=== PATIENT | female | born 1965 | race Caucasian/White ===

== ENCOUNTER 2016-10-17 15:12 | Emergency (ER) | payer MEDICAID ==
[~2016-10-17] VITALS: Ht 160 cm; Wt 42.0 kg
[~2016-10-17 15:12] MED LIST: AMA1 PO; BENAZEPRIL; GLIP5TAB12 PO; IBUP-1510 PO; INSASP SQ; LISI-186 PO; METFORMIN; MULT-1146 PO; OMEP40CA34 PO; ONDA4TAB51; PANT20TA3; POTA10CA42 PO; PROM25TA13; QUET150T PO; SIME125C PO; TRAM50TA3
[2016-10-17] MEDS ORDERED: KETOROLAC 60MG/2ML VIAL IM ONE (18:30)
[2016-10-17 19:17] LABS: CLARITY URINE CLEAR (CLEAR); COLOR URINE YELLOW (YELLOW); GLUCOSE URINE 3+ (NEGATIVE); KETONES URINE TRACE (NEGATIVE); LEUKOCYTE ESTERASE URINE NEGATIVE (NEGATIVE); NITRITE URINE NEGATIVE (NEGATIVE); OCCULT BLOOD URINE NEGATIVE (NEGATIVE); PROTEIN URINE NEGATIVE (NEGATIVE); SPECIFIC GRAVITY URINE 1.031 (1.005-1.030); UROBILINOGEN URINE 0.2 E.U./dL (0.2-1.0)
[2016-10-17 20:25] VITALS: BP 167/86
== END 2016-10-17 20:25 | disposition home or self-care (01) ==
LOC: ER 19:39
DX: M54.5 Low back pain (principal); E11.9 Type 2 diabetes mellitus without complications; I10 Essential (primary) hypertension; J45.909 Unspecified asthma, uncomplicated; Z79.84 Long term (current) use of oral hypoglycemic drugs; Z79.899 Other long term (current) drug therapy; Z79.4 Long term (current) use of insulin; Z87.19 Personal history of other diseases of the digestive system
CPT/HCPCS: 81001; 96372; 99283; J1885; Z7610

== ENCOUNTER 2016-12-05 21:58 | Emergency (ER) | payer MEDICAID ==
[~2016-12-05] VITALS: Ht 167.6 cm; Wt 45.0 kg
[~2016-12-05 21:58] MED LIST changes: -IBUP-1510 PO; +IBUP-2030 PO
[2016-12-06] MEDS ORDERED: KETOROLAC 15MG/ML VIAL IV ONE (01:00)
[2016-12-06] MEDS ORDERED: SODIUM CHLORIDE 0.9% 1,000 ML IV ONE (01:00)
[2016-12-06 01:25] LABS: BASOPHILS % 1.2 % (0.0-2.0); EOSINOPHILS % 1.4 % (0.0-5.0); HEMATOCRIT. 34.4 % (36.0-48.0); HEMOGLOBIN. 11.8 g/dL (12.0-16.0); LYMPHOCYTES % 54.7 % (20.0-50.0); MEAN CORPUSCULAR HEMOGLOBIN 29.8 pg (28.0-32.0); MEAN PLATELET VOLUME 8.9 fl (7.4-10.4); MONOCYTES % 8.7 % (2.0-8.0); PLATELET 104 x1000/uL (130-400); RED BLOOD CELL COUNT 3.96 mill/uL (4.2-5.4); RED CELL DISTRIBUTION WIDTH 14.4 % (11.6-14.6)
[2016-12-06 01:26] LABS: CLARITY URINE CLEAR (CLEAR); COLOR URINE YELLOW (YELLOW); GLUCOSE URINE 3+ (NEGATIVE); KETONES URINE NEGATIVE (NEGATIVE); LEUKOCYTE ESTERASE URINE NEGATIVE (NEGATIVE); NITRITE URINE NEGATIVE (NEGATIVE); OCCULT BLOOD URINE NEGATIVE (NEGATIVE); PROTEIN URINE 1+ (NEGATIVE); SPECIFIC GRAVITY URINE 1.035 (1.005-1.030); UROBILINOGEN URINE 0.2 E.U./dL (0.2-1.0)
[2016-12-06 01:32] LABS: CHLORIDE 96 mEq/L (98-107)
[2016-12-06 01:38] LABS: CARBON DIOXIDE 30 mEq/L (21-32)
[2016-12-06] MEDS ORDERED: SODIUM CHLORIDE 0.9% 250 ML IV NR (02:15)
[2016-12-06] MEDS ORDERED: MORPHINE SULFATE 4 MG/ML CPJ (NOT FOR IM USE) IV NR (02:15)
[2016-12-06] MEDS ORDERED: INSULIN REGULAR (HUMULIN R) 300UNITS/3ML IV NR (02:15)
[2016-12-06] MEDS ORDERED: CLONIDINE 0.2MG TABLET PO ONE (04:00)
[2016-12-06] MEDS ORDERED: INSULIN REGULAR (HUMULIN R) 300UNITS/3ML SUBCUT ONE (04:00)
[2016-12-06 09:20] VITALS: BP 92/66
== END 2016-12-06 09:28 | disposition home or self-care (01) ==
LOC: ER 21:58
DX: E11.65 Type 2 diabetes mellitus with hyperglycemia (principal); R00.0 Tachycardia, unspecified; M25.562 Pain in left knee; M25.551 Pain in right hip; M54.5 Low back pain; I10 Essential (primary) hypertension; M62.50 Muscle wasting and atrophy, not elsewhere classified, unspecified site; R64 Cachexia; Z68.1 Body mass index [BMI] 19.9 or less, adult; J45.909 Unspecified asthma, uncomplicated; Z79.4 Long term (current) use of insulin; Z87.19 Personal history of other diseases of the digestive system; Z79.899 Other long term (current) drug therapy
CPT/HCPCS: 36415; 72170; 80048; 81001; 82962; 85025; 96361; 96372; 96374; 96375; 99291; J1815; J1885; J2270; J7030; J7050; Z7610

== ENCOUNTER 2017-08-17 19:34 | Emergency (ER) | payer MEDICAID ==
[~2017-08-17] VITALS: Ht 157.5 cm; Wt 41.0 kg
[2017-08-17] MEDS ORDERED: ONDANSETRON HCL 4MG/2ML VIAL IV STA (19:49)
[2017-08-17] MEDS ORDERED: SODIUM CHLORIDE 0.9% 1,000 ML IV ONE (19:49)
[2017-08-17] MEDS ORDERED: MORPHINE SULFATE 4 MG/ML CPJ (NOT FOR IM USE) IV STA (19:49)
[2017-08-17 20:22] LABS: BASOPHILS % 0.9 % (0.0-2.0); HEMATOCRIT. 37.9 % (36.0-48.0); HEMOGLOBIN. 12.5 g/dL (12.0-16.0); MEAN CORPUSCULAR HEMOGLOBIN 28.5 pg (28.0-32.0); MEAN CORPUSCULAR VOLUME 86.4 fL (81.0-99.0); MEAN PLATELET VOLUME 8.5 fl (7.4-10.4); MONOCYTES % 9.1 % (2.0-8.0); PLATELET 125 x1000/uL (130-400); RED BLOOD CELL COUNT 4.39 mill/uL (4.2-5.4); RED CELL DISTRIBUTION WIDTH 14.6 % (11.6-14.6)
[2017-08-17 20:27] LABS: CHLORIDE 103 mEq/L (98-107)
[2017-08-17 20:29] LABS: INR 1.1
[2017-08-18] MEDS ORDERED: POTASSIUM CHLORIDE 20MEQ TABLET SR PO ONE (00:30)
[2017-08-18] MEDS ORDERED: MORPHINE SULFATE 4 MG/ML CPJ (NOT FOR IM USE) IV ONE (00:45)
[2017-08-18 02:08] VITALS: BP 159/96
== END 2017-08-18 06:49 | disposition home or self-care (01) ==
LOC: ER 19:34 → CANBEDREQ 08-18 06:53
DX: R10.11 Right upper quadrant pain (principal); R10.12 Left upper quadrant pain; R11.2 Nausea with vomiting, unspecified; R51 Headache; I10 Essential (primary) hypertension; E11.9 Type 2 diabetes mellitus without complications; C22.8 Malignant neoplasm of liver, primary, unspecified as to type; Z79.4 Long term (current) use of insulin
CPT/HCPCS: 36415; 70450; 71045; 74176; 80053; 83690; 85025; 85610; 96361; 96374; 96375; 96376; 99285; J2270; J2405; J7030

== ENCOUNTER 2018-02-04 02:25 | Emergency (ER) | payer MEDICAID ==
[~2018-02-04] VITALS: Ht 165.1 cm; Wt 51.0 kg
[~2018-02-04 02:25] MED LIST changes: -AMA1 PO; -BENAZEPRIL; +GABA-531 PO; -IBUP-2030 PO; -INSASP SQ; +INSLIS SUBCUT; +LURA120T PO; -METFORMIN; -MULT-1146 PO; -SIME125C PO; -TRAM50TA3
[2018-02-04] MEDS ORDERED: SODIUM CHLORIDE 0.9% 1000ML BAG (SEPSIS BOLUS) IV ONE (03:45)
[2018-02-04 04:24] LABS: BASOPHILS % 0.9 % (0.0-2.0); EOSINOPHILS % 1.3 % (0.0-5.0); HEMATOCRIT. 31.3 % (36.0-48.0); HEMOGLOBIN. 10.5 g/dL (12.0-16.0); LYMPHOCYTES % 50.1 % (20.0-50.0); MEAN PLATELET VOLUME 8.8 fl (7.4-10.4); MONOCYTES % 6.4 % (2.0-8.0); NEUTROPHILS % 41.3 % (40.0-76.0); PLATELET 93 x1000/uL (130-400); RED BLOOD CELL COUNT 3.77 mill/uL (4.2-5.4); RED CELL DISTRIBUTION WIDTH 13.8 % (11.6-14.6)
[2018-02-04 04:29] LABS: CHLORIDE 104 mEq/L (98-107)
[2018-02-04 04:40] LABS: BETA HYDROXYBUTYRATE 0.1 mMol/L (0.0-0.3)
[2018-02-04 05:00] LABS: INR 1.1; PROTHROMBIN TIME 10.8 sec (9.1-11.1)
[2018-02-04] MEDS ORDERED: KETOROLAC 30MG/ML VIAL IV ONE (06:00)
[2018-02-04 06:17] VITALS: BP 138/73
== END 2018-02-04 06:22 | disposition home or self-care (01) ==
LOC: ER 02:25 → CANBEDREQ 06:37
DX: R53.1 Weakness (principal); R19.7 Diarrhea, unspecified; E11.9 Type 2 diabetes mellitus without complications; I10 Essential (primary) hypertension; F10.20 Alcohol dependence, uncomplicated; Z79.4 Long term (current) use of insulin; Z79.899 Other long term (current) drug therapy; Y90.9 Presence of alcohol in blood, level not specified
CPT/HCPCS: 36415; 71045; 80053; 82010; 82962; 83605; 84145; 84484; 85025; 85610; 87040; 87804; 93005; 96361; 96374; 99284; J1885; J7030

== ENCOUNTER 2018-06-05 01:43 | Emergency (ER) | payer MEDICAID ==
[~2018-06-05] VITALS: Ht 157.5 cm; Wt 54.0 kg
[2018-06-05] MEDS ORDERED: ONDANSETRON HCL 4MG/2ML INJ IV STA (08:06)
[2018-06-05] MEDS ORDERED: SODIUM CHLORIDE 0.9% 1,000 ML IV ONE (08:06)
[2018-06-05] MEDS ORDERED: MORPHINE SULFATE 4 MG/ML CPJ (NOT FOR IM USE) IV STA (08:06)
[2018-06-05 08:24] LABS: EOSINOPHILS % 1.8 % (0.0-5.0); HEMATOCRIT. 29.6 % (36.0-48.0); LYMPHOCYTES % 47.5 % (20.0-50.0); MEAN CORPUSCULAR HEMOGLOBIN 27.8 pg (28.0-32.0); MEAN CORPUSCULAR VOLUME 82.7 fL (81.0-99.0); MEAN PLATELET VOLUME 7.7 fl (7.4-10.4); MONOCYTES % 9.7 % (2.0-8.0); PLATELET 115 x1000/uL (130-400); RED BLOOD CELL COUNT 3.58 mill/uL (4.2-5.4); RED CELL DISTRIBUTION WIDTH 17.3 % (11.6-14.6)
[2018-06-05 08:30] LABS: CHLORIDE 102 mEq/L (98-107)
[2018-06-05 08:36] LABS: ETHANOL BLOOD < 10 mg/dL
[2018-06-05 08:43] LABS: BETA HYDROXYBUTYRATE 0.2 mMol/L (0.0-0.3)
[2018-06-05] MEDS ORDERED: INSULIN REGULAR (HUMULIN R) 300UNITS/3ML SUBCUT ONE (11:15)
[2018-06-05 11:26] LABS: CLARITY URINE CLEAR (CLEAR); COLOR URINE YELLOW (YELLOW); KETONES URINE NEGATIVE (NEGATIVE); LEUKOCYTE ESTERASE URINE NEGATIVE (NEGATIVE); NITRITE URINE NEGATIVE (NEGATIVE); OCCULT BLOOD URINE NEGATIVE (NEGATIVE); PROTEIN URINE NEGATIVE (NEGATIVE); SPECIFIC GRAVITY URINE 1.028 (1.005-1.030); UROBILINOGEN URINE 0.2 E.U./dL (0.2-1.0)
[2018-06-05 11:48] LABS: *AMPHETAMINES SCREEN URINE NEGATIVE (NEGATIVE); *BARBITURATES SCREEN URINE NEGATIVE (NEGATIVE); *BENZODIAZEPINES SCREEN URINE NEGATIVE (NEGATIVE); *COCAINE SCREEN URINE NEGATIVE (NEGATIVE)
[2018-06-05 11:49] LABS: CANNABINOID URINE SCREEN NEGATIVE (NEGATIVE); METHADONE URINE SCREEN NEGATIVE (NEGATIVE); OPIATES URINE SCREEN PRESUMTIVE POSITIVE (NEGATIVE)
[2018-06-05 11:50] LABS: PHENCYCLIDINE URINE SCREEN NEGATIVE (NEGATIVE)
[2018-06-05] MEDS ORDERED: KETOROLAC 30MG/ML VIAL IV ONE (12:45)
[2018-06-05 14:10] VITALS: BP 128/70
== END 2018-06-05 14:30 | disposition home or self-care (01) ==
LOC: ER 01:43
DX: K52.9 Noninfective gastroenteritis and colitis, unspecified (principal); E11.9 Type 2 diabetes mellitus without complications; I10 Essential (primary) hypertension; R30.0 Dysuria; Z79.4 Long term (current) use of insulin; Z79.899 Other long term (current) drug therapy
CPT/HCPCS: 36415; 74176; 80053; 80305; 80320; 81003; 82010; 82962; 83605; 83690; 85025; 96361; 96372; 96374; 96375; 99284; J1815; J1885; J2270; J2405; J7030; G0480

== ENCOUNTER 2018-08-16 20:31 | Inpatient (IN) | payer MEDICAID ==
[~2018-08-16] VITALS: Ht 160 cm; Wt 57.2 kg
[~2018-08-16 20:31] MED LIST changes: -QUET150T PO; +QUET150T2 PO
[2018-08-16] MEDS ORDERED: SODIUM CHLORIDE 0.9% 1,000 ML IV ONE (21:33)
[2018-08-16 21:56] LABS: BASOPHILS % 0.6 % (0.0-2.0); EOSINOPHILS % 1.4 % (0.0-5.0); HEMATOCRIT. 32.3 % (36.0-48.0); HEMOGLOBIN. 10.7 g/dL (12.0-16.0); LYMPHOCYTES % 36.5 % (20.0-50.0); MEAN CORPUSCULAR HEMOGLOBIN 27.9 pg (28.0-32.0); MEAN CORPUSCULAR VOLUME 83.9 fL (81.0-99.0); MONOCYTES % 7.4 % (2.0-8.0); NEUTROPHILS % 54.1 % (40.0-76.0); RED BLOOD CELL COUNT 3.85 mill/uL (4.2-5.4); RED CELL DISTRIBUTION WIDTH 14.7 % (11.6-14.6)
[2018-08-16 22:02] LABS: CHLORIDE 111 mEq/L (98-107)
[2018-08-16 22:13] LABS: MEAN PLATELET VOLUME 9.5 fl (7.4-10.4); PLATELET 86 x1000/uL (130-400)
[2018-08-16] MEDS ORDERED: ONDANSETRON HCL 4MG/2ML INJ IV STA (23:49)
[2018-08-16] MEDS ORDERED: MORPHINE SULFATE 4 MG/ML CPJ (NOT FOR IM USE) IV STA (23:49)
[2018-08-17] MEDS ORDERED: LEVETIRACETAM 500MG PREMIX 100 ML IV ONE
[2018-08-17] MEDS ORDERED: LEVETIRACETAM 500MG PREMIX 100 ML IV SCH (00:15)
[2018-08-17 01:27] LABS: *AMPHETAMINES SCREEN URINE NEGATIVE (NEGATIVE); *BARBITURATES SCREEN URINE NEGATIVE (NEGATIVE); *BENZODIAZEPINES SCREEN URINE NEGATIVE (NEGATIVE); *COCAINE SCREEN URINE NEGATIVE (NEGATIVE); METHADONE URINE SCREEN NEGATIVE (NEGATIVE)
[2018-08-17 01:28] LABS: OPIATES URINE SCREEN PRESUMTIVE POSITIVE (NEGATIVE); PHENCYCLIDINE URINE SCREEN NEGATIVE (NEGATIVE)
[2018-08-17 01:30] LABS: CANNABINOID URINE SCREEN NEGATIVE (NEGATIVE)
[2018-08-17 05:20] VITALS: BP 128/74
[2018-08-17] MEDS ORDERED: LANTUSUD SUBCUT (05:45)
[2018-08-17] MEDS ORDERED: DEXTROSE 50% WATER 50ML SYRINGE IV PRN (07:00)
[2018-08-17 08:00] VITALS: BP 117/63
[2018-08-17] MEDS: INSULIN LISPRO 100 UNITS/ML SUBCUT SCH ×4 (08:04→21:06)
[2018-08-17] MEDS: HYDROCODONE/ACETAMINOPHEN 5/325MG TABLET PO PRN ×3 (08:12→23:01)
[2018-08-17 09:12] LABS: HEMATOCRIT 31.1 % (36.0-48.0); HEMOGLOBIN 10.3 g/dL (12.0-16.0); MEAN CORPUSCULAR HEMOGLOBIN 27.5 pg (28.0-32.0); MEAN CORPUSCULAR VOLUME 82.8 fL (81.0-99.0); PLATELET 93 x1000/uL (130-400); RED BLOOD CELL COUNT 3.75 mill/uL (4.2-5.4); RED CELL DISTRIBUTION WIDTH 14.3 % (11.6-14.6)
[2018-08-17 09:27] LABS: CHLORIDE 113 mEq/L (98-107)
[2018-08-17 09:38] LABS: LDL CHOLESTEROL 61 mg/dL (5-100)
[2018-08-17 09:40] LABS: HDL CHOLESTEROL 37 mg/dL (40-59)
[2018-08-17] MEDS: LISINOPRIL 5MG TABLET PO SCH (11:14)
[2018-08-17 12:00] VITALS: BP 138/72
[2018-08-17] MEDS: LEVETIRACETAM 500MG TABLET PO SCH ×2 (12:04→23:01)
[2018-08-17] MEDS: BLOOD SUGAR DIAGNOSTIC STRIP TEST SCH ×3 (12:04→20:55)
[2018-08-17] MEDS: MORPHINE SULFATE 2 MG/ML CPJ (NOT FOR IM USE) IV PRN ×2 (12:05→17:13)
[2018-08-17 15:27] LABS: ETHANOL BLOOD < 10 mg/dL
[2018-08-17] MEDS: OMEPRAZOLE 20MG CAPSULE EXTENDED RELEASE PO SCH ×2 (15:45→21:04)
[2018-08-17] MEDS: POTASSIUM CHLORIDE 10MEQ TABLET SR PO SCH ×2 (15:45→17:12)
[2018-08-17 16:00] VITALS: BP 152/79
[2018-08-17 17:50] LABS: TOTAL IRON BINDING CAPACITY 382 ug/dL (250-450)
[2018-08-17 19:42] LABS: CLARITY URINE CLEAR (CLEAR); COLOR URINE YELLOW (YELLOW); KETONES URINE NEGATIVE (NEGATIVE); LEUKOCYTE ESTERASE URINE NEGATIVE (NEGATIVE); NITRITE URINE NEGATIVE (NEGATIVE); OCCULT BLOOD URINE NEGATIVE (NEGATIVE); PH URINE 5.5 (4.5-8.0); PROTEIN URINE NEGATIVE (NEGATIVE); SPECIFIC GRAVITY URINE 1.014 (1.005-1.030); UROBILINOGEN URINE 0.2 E.U./dL (0.2-1.0)
[2018-08-17 20:00] VITALS: BP 145/76
[2018-08-17] MEDS: QUETIAPINE FUMARATE 100MG TABLET PO SCH (21:04)
[2018-08-17] MEDS: GABAPENTIN 300MG CAPSULE PO SCH (21:05)
[2018-08-18] VITALS: BP 113/50
[2018-08-18 04:00] VITALS: BP_SYST 101; BP_SYST 108; BP_SYST 88; BP_DIAS 44; BP_DIAS 55; BP_DIAS 58
[2018-08-18] MEDS: BLOOD SUGAR DIAGNOSTIC STRIP TEST SCH ×4 (06:05→21:00)
[2018-08-18] MEDS: INSULIN LISPRO 100 UNITS/ML SUBCUT SCH ×4 (06:17→21:59)
[2018-08-18] MEDS: GABAPENTIN 300MG CAPSULE PO SCH ×3 (06:17→21:37)
[2018-08-18 07:08] LABS: BASOPHILS % 1.2 % (0.0-2.0); EOSINOPHILS % 1.5 % (0.0-5.0); HEMATOCRIT. 31.1 % (36.0-48.0); HEMOGLOBIN. 10.4 g/dL (12.0-16.0); LYMPHOCYTES % 55.5 % (20.0-50.0); MEAN CORPUSCULAR HEMOGLOBIN 27.6 pg (28.0-32.0); MEAN CORPUSCULAR VOLUME 82.5 fL (81.0-99.0); NEUTROPHILS % 36.8 % (40.0-76.0); PLATELET 93 x1000/uL (130-400); RED BLOOD CELL COUNT 3.77 mill/uL (4.2-5.4); RED CELL DISTRIBUTION WIDTH 14.3 % (11.6-14.6)
[2018-08-18 07:37] LABS: CHLORIDE 108 mEq/L (98-107)
[2018-08-18 08:00] VITALS: BP 110/62
[2018-08-18] MEDS: LISINOPRIL 5MG TABLET PO SCH (08:41)
[2018-08-18] MEDS: OMEPRAZOLE 20MG CAPSULE EXTENDED RELEASE PO SCH ×2 (09:23→21:37)
[2018-08-18] MEDS: QUETIAPINE FUMARATE 100MG TABLET PO SCH ×2 (09:23→21:37)
[2018-08-18] MEDS: POTASSIUM CHLORIDE 10MEQ TABLET SR PO SCH ×2 (09:23→18:01)
[2018-08-18] MEDS: SODIUM CHLORIDE 0.45% 1,000 ML IV SCH ×2 (11:21→21:41)
[2018-08-18 12:00] VITALS: BP_SYST 101; BP_SYST 68; BP_SYST 97; BP_DIAS 42; BP_DIAS 58; BP_DIAS 61
[2018-08-18] MEDS: LEVETIRACETAM 500MG TABLET PO SCH (13:06)
[2018-08-18] MEDS: ASPIRIN 81MG EC TABLET PO SCH (13:06)
[2018-08-18 17:00] VITALS: BP 99/60
[2018-08-18 20:00] VITALS: BP_SYST 102; BP_SYST 121; BP_SYST 134; BP_DIAS 57; BP_DIAS 68; BP_DIAS 70
[2018-08-18] MEDS: HYDROCODONE/ACETAMINOPHEN 5/325MG TABLET PO PRN (21:58)
[2018-08-19] VITALS (7 sets, daily range): BP systolic 69–184; BP diastolic 40–85
[2018-08-19] MEDS: LEVETIRACETAM 500MG TABLET PO SCH ×2 (00:02→12:38)
[2018-08-19] MEDS: GABAPENTIN 300MG CAPSULE PO SCH ×3 (05:55→20:46)
[2018-08-19] MEDS: INSULIN LISPRO 100 UNITS/ML SUBCUT SCH ×4 (06:10→21:00)
[2018-08-19] MEDS: BLOOD SUGAR DIAGNOSTIC STRIP TEST SCH ×4 (06:11→21:00)
[2018-08-19 06:54] LABS: BASOPHILS % 0.7 % (0.0-2.0); EOSINOPHILS % 1.7 % (0.0-5.0); HEMOGLOBIN. 9.9 g/dL (12.0-16.0); LYMPHOCYTES % 50.8 % (20.0-50.0); MEAN CORPUSCULAR HEMOGLOBIN 27.6 pg (28.0-32.0); MEAN CORPUSCULAR VOLUME 83.5 fL (81.0-99.0); MEAN PLATELET VOLUME 8.9 fl (7.4-10.4); MONOCYTES % 5.6 % (2.0-8.0); NEUTROPHILS % 41.2 % (40.0-76.0); PLATELET 80 x1000/uL (130-400); RED BLOOD CELL COUNT 3.59 mill/uL (4.2-5.4); RED CELL DISTRIBUTION WIDTH 14.6 % (11.6-14.6)
[2018-08-19 07:06] LABS: CHLORIDE 109 mEq/L (98-107)
[2018-08-19 07:28] LABS: CREATINE KINASE 194 IU/L (26-192)
[2018-08-19] MEDS: QUETIAPINE FUMARATE 100MG TABLET PO SCH ×2 (08:38→20:47)
[2018-08-19] MEDS: POTASSIUM CHLORIDE 10MEQ TABLET SR PO SCH ×2 (08:38→17:44)
[2018-08-19] MEDS: ASPIRIN 81MG EC TABLET PO SCH (08:38)
[2018-08-19] MEDS: OMEPRAZOLE 20MG CAPSULE EXTENDED RELEASE PO SCH ×2 (08:38→20:39)
[2018-08-19] MEDS: HYDROCODONE/ACETAMINOPHEN 5/325MG TABLET PO PRN ×2 (10:24→20:40)
[2018-08-19] MEDS: MORPHINE SULFATE 2 MG/ML CPJ (NOT FOR IM USE) IV PRN (15:39)
[2018-08-19] MEDS: SODIUM CHLORIDE 0.45% 1,000 ML IV SCH (17:49)
[2018-08-19] MEDS ORDERED: CLONIDINE 0.1MG TABLET PO PRN (20:00)
[2018-08-20] VITALS: BP 128/79
[2018-08-20] MEDS: SODIUM CHLORIDE 0.45% 1,000 ML IV SCH ×2 (00:01→12:21)
[2018-08-20] MEDS: MORPHINE SULFATE 2 MG/ML CPJ (NOT FOR IM USE) IV PRN (00:01)
[2018-08-20 04:00] VITALS: BP 94/41
[2018-08-20] MEDS: BLOOD SUGAR DIAGNOSTIC STRIP TEST SCH ×4 (06:56→21:05)
[2018-08-20] MEDS: GABAPENTIN 300MG CAPSULE PO SCH ×3 (06:56→21:15)
[2018-08-20 06:57] LABS: BASOPHILS % 0.6 % (0.0-2.0); HEMATOCRIT. 28.5 % (36.0-48.0); HEMOGLOBIN. 9.6 g/dL (12.0-16.0); LYMPHOCYTES % 46.8 % (20.0-50.0); MEAN CORPUSCULAR VOLUME 83.4 fL (81.0-99.0); MEAN PLATELET VOLUME 8.9 fl (7.4-10.4); MONOCYTES % 7.3 % (2.0-8.0); NEUTROPHILS % 43.3 % (40.0-76.0); PLATELET 75 x1000/uL (130-400); RED BLOOD CELL COUNT 3.42 mill/uL (4.2-5.4); RED CELL DISTRIBUTION WIDTH 14.7 % (11.6-14.6)
[2018-08-20 07:02] LABS: CHLORIDE 107 mEq/L (98-107)
[2018-08-20] MEDS: QUETIAPINE FUMARATE 100MG TABLET PO SCH ×2 (08:21→21:13)
[2018-08-20] MEDS: OMEPRAZOLE 20MG CAPSULE EXTENDED RELEASE PO SCH ×2 (08:21→21:14)
[2018-08-20] MEDS: ASPIRIN 81MG EC TABLET PO SCH (08:22)
[2018-08-20] MEDS: POTASSIUM CHLORIDE 10MEQ TABLET SR PO SCH ×2 (08:22→16:42)
[2018-08-20] MEDS: HYDROCODONE/ACETAMINOPHEN 5/325MG TABLET PO PRN ×2 (08:26→21:14)
[2018-08-20] MEDS: INSULIN LISPRO 100 UNITS/ML SUBCUT SCH ×4 (08:28→21:18)
[2018-08-20 09:11] LABS: G6PD RBC 3.56 x10E6/uL (3.77-5.28)
[2018-08-20 12:00] VITALS: BP 98/56
[2018-08-20] MEDS: LEVETIRACETAM 500MG TABLET PO SCH ×3 (12:20→23:57)
[2018-08-20 16:00] VITALS: BP 86/44
[2018-08-20 16:30] VITALS: BP_SYST 116; BP_SYST 126; BP_SYST 99; BP_DIAS 53; BP_DIAS 65; BP_DIAS 68
[2018-08-20 20:00] VITALS: BP_SYST 138; BP_SYST 143; BP_SYST 160; BP_DIAS 64; BP_DIAS 70; BP_DIAS 81
[2018-08-21] VITALS (10 sets, daily range): BP systolic 86–134; BP diastolic 39–70
[2018-08-21] MEDS: SODIUM CHLORIDE 0.45% 1,000 ML IV SCH ×2 (05:57→17:27)
[2018-08-21] MEDS: BLOOD SUGAR DIAGNOSTIC STRIP TEST SCH ×4 (05:57→21:10)
[2018-08-21] MEDS: GABAPENTIN 300MG CAPSULE PO SCH ×3 (05:57→21:09)
[2018-08-21] MEDS: INSULIN LISPRO 100 UNITS/ML SUBCUT SCH ×5 (06:02→21:00)
[2018-08-21 06:52] LABS: BASOPHILS % 0.8 % (0.0-2.0); HEMOGLOBIN. 9.6 g/dL (12.0-16.0); LYMPHOCYTES % 46.9 % (20.0-50.0); MEAN CORPUSCULAR HEMOGLOBIN 27.5 pg (28.0-32.0); MONOCYTES % 8.1 % (2.0-8.0); NEUTROPHILS % 42.2 % (40.0-76.0); PLATELET 79 x1000/uL (130-400); RED BLOOD CELL COUNT 3.49 mill/uL (4.2-5.4); RED CELL DISTRIBUTION WIDTH 14.6 % (11.6-14.6)
[2018-08-21 07:34] LABS: CHLORIDE 107 mEq/L (98-107)
[2018-08-21] MEDS: ASPIRIN 81MG EC TABLET PO SCH (08:22)
[2018-08-21] MEDS: QUETIAPINE FUMARATE 100MG TABLET PO SCH ×2 (08:23→21:09)
[2018-08-21] MEDS: OMEPRAZOLE 20MG CAPSULE EXTENDED RELEASE PO SCH ×2 (08:23→21:09)
[2018-08-21] MEDS: POTASSIUM CHLORIDE 10MEQ TABLET SR PO SCH ×2 (08:23→17:22)
[2018-08-21] MEDS: HYDROCODONE/ACETAMINOPHEN 5/325MG TABLET PO PRN ×2 (08:28→17:38)
[2018-08-21 10:11] LABS: ANTI-MYELOPEROXIDASE AB < 9.0 U/mL (0.0-9.0)
[2018-08-21] MEDS ORDERED: INSULIN GLARGINE UD 100 UNITS/ML SYR SUBCUT SCH (10:15)
[2018-08-21] MEDS: MIDODRINE HCL 2.5MG TABLET PO SCH ×3 (10:50→17:23)
[2018-08-21] MEDS: LEVETIRACETAM 500MG TABLET PO SCH ×2 (12:34→22:58)
[2018-08-21] MEDS: MORPHINE SULFATE 2 MG/ML CPJ (NOT FOR IM USE) IV PRN ×2 (12:35→22:54)
[2018-08-21 13:14] LABS: ANTI-PROTEINASE 3 ABS < 3.5 U/mL (0.0-3.5)
[2018-08-21 15:11] LABS: ANA IFA Negative (.); ATYPICAL P-ANCA <1:20 titer (Neg:<1:20); CYTOPLASMIC C-ANCA <1:20 titer (Neg:<1:20); PERINUCLEAR P-ANCA <1:20 titer (Neg:<1:20)
[2018-08-21 17:15] LABS: G6PD QUANTITATIVE 366 (146-376)
[2018-08-21 19:11] LABS: ANTI-DNA DOUBLE STRANDED QUANT < 1 IU/mL (0-9); CYC CITRULLINATED PEP IgG/IgA 4 units (0-19); RNP ANTIBODY < 0.2 AI (0.0-0.9); SMITH ANTIBODY < 0.2 AI (0.0-0.9)
[2018-08-21] MEDS: INSULIN GLARGINE UD 100 UNITS/ML SYR SUBCUT SCH (21:08)
[2018-08-22] VITALS: BP 125/64
[2018-08-22] MEDS: SODIUM CHLORIDE 0.45% 1,000 ML IV SCH ×2 (03:38→13:30)
[2018-08-22 04:00] VITALS: BP_SYST 103; BP_SYST 114; BP_DIAS 59; BP_DIAS 61
[2018-08-22] MEDS: HYDROCODONE/ACETAMINOPHEN 5/325MG TABLET PO PRN (05:07)
[2018-08-22] MEDS: BLOOD SUGAR DIAGNOSTIC STRIP TEST SCH ×4 (06:50→21:01)
[2018-08-22] MEDS: INSULIN LISPRO 100 UNITS/ML SUBCUT SCH ×7 (06:51→21:00)
[2018-08-22] MEDS: GABAPENTIN 300MG CAPSULE PO SCH ×3 (06:51→22:03)
[2018-08-22 08:00] VITALS: BP_SYST 106; BP_SYST 86; BP_SYST 89; BP_DIAS 40; BP_DIAS 46; BP_DIAS 58
[2018-08-22] MEDS: OMEPRAZOLE 20MG CAPSULE EXTENDED RELEASE PO SCH ×2 (08:32→21:08)
[2018-08-22] MEDS: MIDODRINE HCL 2.5MG TABLET PO SCH ×2 (08:32→13:05)
[2018-08-22] MEDS: POTASSIUM CHLORIDE 10MEQ TABLET SR PO SCH ×2 (08:32→18:35)
[2018-08-22] MEDS: QUETIAPINE FUMARATE 100MG TABLET PO SCH ×2 (08:32→21:08)
[2018-08-22] MEDS: ASPIRIN 81MG EC TABLET PO SCH (08:32)
[2018-08-22] MEDS: MORPHINE SULFATE 2 MG/ML CPJ (NOT FOR IM USE) IV PRN ×3 (08:42→21:21)
[2018-08-22 09:06] LABS: HLA CLASS 1 ANTIBODY Negative (Negative); IIb/IIIa ANTIBODY Negative (Negative); Ia/IIa ANTIBODY Negative (Negative); Ib/IX ANTIBODY Negative (Negative)
[2018-08-22] MEDS: INSULIN GLARGINE UD 100 UNITS/ML SYR SUBCUT SCH ×2 (10:58→22:04)
[2018-08-22 12:00] VITALS: BP 98/40
[2018-08-22] MEDS: LEVETIRACETAM 500MG TABLET PO SCH (13:05)
[2018-08-22 14:47] VITALS: BP 110/67
[2018-08-22] MEDS: MIDODRINE HCL 5MG TABLET PO SCH (18:35)
[2018-08-22 20:00] VITALS: BP 150/86
[2018-08-23] VITALS (8 sets, daily range): BP systolic 84–156; BP diastolic 40–86
[2018-08-23] MEDS: LEVETIRACETAM 500MG TABLET PO SCH ×2 (00:31→12:56)
[2018-08-23] MEDS: SODIUM CHLORIDE 0.45% 1,000 ML IV SCH ×2 (00:36→13:41)
[2018-08-23 04:15] LABS: ANGIOTENSION CONVERTING ENZYME 24 U/L (14-82)
[2018-08-23] MEDS: INSULIN LISPRO 100 UNITS/ML SUBCUT SCH ×4 (06:33→13:45)
[2018-08-23] MEDS: BLOOD SUGAR DIAGNOSTIC STRIP TEST SCH ×2 (06:33→11:45)
[2018-08-23] MEDS: GABAPENTIN 300MG CAPSULE PO SCH ×2 (06:47→13:41)
[2018-08-23] MEDS: MORPHINE SULFATE 2 MG/ML CPJ (NOT FOR IM USE) IV PRN ×2 (06:51→13:41)
[2018-08-23] MEDS: QUETIAPINE FUMARATE 100MG TABLET PO SCH (09:55)
[2018-08-23] MEDS: POTASSIUM CHLORIDE 10MEQ TABLET SR PO SCH (09:56)
[2018-08-23] MEDS: OMEPRAZOLE 20MG CAPSULE EXTENDED RELEASE PO SCH (09:56)
[2018-08-23] MEDS: MIDODRINE HCL 5MG TABLET PO SCH (09:57)
[2018-08-23] MEDS: ASPIRIN 81MG EC TABLET PO SCH (09:57)
[2018-08-23] MEDS: INSULIN GLARGINE UD 100 UNITS/ML SYR SUBCUT SCH (09:58)
[2018-08-23] MEDS ORDERED: MIDODRINE HCL 5MG TABLET PO SCH (13:00)
[2018-08-23] MEDS ORDERED: KEPP500 PO (16:14)
[2018-08-23] MEDS ORDERED: LANTUSUD SUBCUT (16:14)
[2018-08-23] MEDS ORDERED: ASPI-1158 PO (16:14)
[2018-08-23] MEDS ORDERED: MIDO5TAB PO (16:14)
== END 2018-08-23 19:14 | disposition home or self-care (01) | DRG 204 ==
LOC: ER 20:31 → 5WST 08-17 03:39 → EDBEDREQ 08-17 03:41 → EDBEDREQTM 08-17 03:41 → EDBEDREQDT 08-17 03:41 → ENRESERV 08-17 04:07 → 5WST 08-17 06:35
PROVIDERS: ADMIT Internal Medicine; ATTEND Internal Medicine
DX: I95.1 Orthostatic hypotension (principal); D69.6 Thrombocytopenia, unspecified; E11.40 Type 2 diabetes mellitus with diabetic neuropathy, unspecified; G90.8 Other disorders of autonomic nervous system; E11.65 Type 2 diabetes mellitus with hyperglycemia; M32.9 Systemic lupus erythematosus, unspecified; G40.909 Epilepsy, unspecified, not intractable, without status epilepticus; I10 Essential (primary) hypertension; J45.909 Unspecified asthma, uncomplicated; K21.9 Gastro-esophageal reflux disease without esophagitis; W18.30XA Fall on same level, unspecified, initial encounter; R74.0 Nonspecific elevation of levels of transaminase and lactic acid dehydrogenase [LDH]; D64.9 Anemia, unspecified; J44.9 Chronic obstructive pulmonary disease, unspecified; F10.21 Alcohol dependence, in remission; M19.90 Unspecified osteoarthritis, unspecified site; Z90.49 Acquired absence of other specified parts of digestive tract; Z90.710 Acquired absence of both cervix and uterus; Y93.89 Activity, other specified; Y92.89 Other specified places as the place of occurrence of the external cause; Y99.8 Other external cause status
CPT/HCPCS: 36415; 70544; 70553; 71045; 73502; 76700; 80048; 80061; 80305; 80320; 82085; 82164; 82550; 82728; 82955; 82962; 83036; 83520; 83540; 83550; 83605; 83655; 83735; 83880; 84443; 84484; 85027; 85041; 85651; 86022; 86038; 86200; 86225; 86235; 86256; 86431; 86592; 86780; 93005; 93306; 93880; 93970; 96374; 97116; 97162; 97166; 97530; 99285; A6261; J1815; J1953; J2270; J2405; J7030; G0480

== ENCOUNTER 2018-11-29 14:54 | Emergency (ER) | payer MEDICAID ==
[~2018-11-29] VITALS: Ht 165.1 cm; Wt 54.0 kg
[~2018-11-29 14:54] MED LIST changes: +ASPI-1158 PO; -GLIP5TAB12 PO; +KEPP500 PO; +LANTUSUD SUBCUT; -LISI-186 PO; +MIDO5TAB PO; -PANT20TA3
[2018-11-29] MEDS ORDERED: SODIUM CHLORIDE 0.9% 1,000 ML IV ONE (15:27)
[2018-11-29] MEDS ORDERED: KETOROLAC 30MG/ML VIAL IV STA (15:27)
[2018-11-29] MEDS ORDERED: ONDANSETRON HCL 4MG/2ML INJ IV STA (15:27)
[2018-11-29 16:10] LABS: BASOPHILS % 0.8 % (0.0-2.0); EOSINOPHILS % 1.2 % (0.0-5.0); HEMATOCRIT. 38.5 % (36.0-48.0); HEMOGLOBIN. 12.7 g/dL (12.0-16.0); LYMPHOCYTES % 51.9 % (20.0-50.0); MEAN CORPUSCULAR HEMOGLOBIN 26.3 pg (28.0-32.0); MEAN CORPUSCULAR VOLUME 79.6 fL (81.0-99.0); MEAN PLATELET VOLUME 8.9 fl (7.4-10.4); MONOCYTES % 5.4 % (2.0-8.0); NEUTROPHILS % 40.7 % (40.0-76.0); PLATELET 122 x1000/uL (130-400); RED BLOOD CELL COUNT 4.84 mill/uL (4.2-5.4); RED CELL DISTRIBUTION WIDTH 15.6 % (11.6-14.6)
[2018-11-29 16:15] LABS: CHLORIDE 102 mEq/L (98-107)
[2018-11-29 16:18] LABS: PARTIAL THROMBOPLASTIN TIME 23.7 sec (23.4-31.0); PROTHROMBIN TIME 10.6 sec (9.6-11.0)
[2018-11-29 16:19] LABS: ETHANOL BLOOD < 10 mg/dL
[2018-11-29 16:24] LABS: CREATINE KINASE 48 IU/L (26-192)
[2018-11-29 16:28] LABS: CREATINE KINASE MB FRACTION < 1.0 ng/mL (0.5-3.6); HCG SCREEN NEGATIVE
[2018-11-29] MEDS ORDERED: MORPHINE SULFATE 4 MG/ML CPJ (NOT FOR IM USE) IV ONE (17:00)
[2018-11-29] MEDS ORDERED: ONDANSETRON HCL 4MG/2ML INJ IV ONE (17:00)
[2018-11-29] MEDS ORDERED: CLONIDINE 0.2MG TABLET PO ONE (18:30)
[2018-11-29] MEDS ORDERED: LEVOFLOXACIN 750MG PREMIX 150 ML IV ONE (19:30)
[2018-11-29 19:49] LABS: CLARITY URINE CLEAR (CLEAR); COLOR URINE YELLOW (YELLOW); KETONES URINE NEGATIVE (NEGATIVE); LEUKOCYTE ESTERASE URINE 2+ (NEGATIVE); NITRITE URINE NEGATIVE (NEGATIVE); OCCULT BLOOD URINE NEGATIVE (NEGATIVE); PH URINE 6.5 (4.5-8.0); PROTEIN URINE NEGATIVE (NEGATIVE); SPECIFIC GRAVITY URINE 1.017 (1.005-1.030); UROBILINOGEN URINE 0.2 E.U./dL (0.2-1.0)
[2018-11-29 20:26] LABS: *AMPHETAMINES SCREEN URINE NEGATIVE (NEGATIVE); *BARBITURATES SCREEN URINE NEGATIVE (NEGATIVE); *BENZODIAZEPINES SCREEN URINE NEGATIVE (NEGATIVE); *COCAINE SCREEN URINE NEGATIVE (NEGATIVE); METHADONE URINE SCREEN NEGATIVE (NEGATIVE); OPIATES URINE SCREEN PRESUMTIVE POSITIVE (NEGATIVE)
[2018-11-29 20:27] LABS: CANNABINOID URINE SCREEN NEGATIVE (NEGATIVE); PHENCYCLIDINE URINE SCREEN NEGATIVE (NEGATIVE)
[2018-11-29] MEDS ORDERED: SODIUM CHLORIDE 0.9% 500 ML IV ONE (22:21)
[2018-11-29] MEDS ORDERED: ACETAMINOPHEN 325MG TABLET PO ONE (22:30)
[2018-11-29 23:45] VITALS: BP 101/50
== END 2018-11-30 00:13 | disposition home or self-care (01) ==
LOC: ER 14:54 → ENRESERV 22:31 → CANRESERV 22:31 → CANBEDREQ 23:03 → ER 11-30 00:13
DX: E86.0 Dehydration (principal); R91.8 Other nonspecific abnormal finding of lung field; R51 Headache; J45.909 Unspecified asthma, uncomplicated; E11.9 Type 2 diabetes mellitus without complications; I10 Essential (primary) hypertension; Z79.4 Long term (current) use of insulin; Z79.82 Long term (current) use of aspirin; Z79.899 Other long term (current) drug therapy
CPT/HCPCS: 36415; 70450; 71045; 76705; 80053; 80305; 80320; 81003; 82550; 82553; 82962; 83605; 83690; 83880; 84443; 84484; 84703; 85025; 85610; 85730; 87040; 87086; 87804; 93005; 96361; 96365; 96375; 96376; 99284; J1885; J1956; J2270; J2405; J7030; J7040; G0480

== ENCOUNTER 2020-10-07 13:06 | Inpatient (IN) | payer MEDICAID ==
[~2020-10-07] VITALS: Ht 162.6 cm; Wt 80.4 kg
[2020-10-07] VITALS (21 sets, daily range): BP systolic 62–171; BP diastolic 25–126
[~2020-10-07 13:06] MED LIST changes: +AMIT25TA9 PO; -ASPI-1158 PO; +ASPI-1406 PO; +ATROPINE SULFATE 1MG/10ML SYR ONE; +ETOMIDATE 2MG/ML 10ML VIAL IV ONE; +FERR-71 MT; -GABA-531 PO; +GABA-532 PO; +HYDR-4001 MT; -MIDO5TAB PO; +MIDO5TAB4 PO; +MULT-1116 MT; +MV-M1TAB19 PO; +OMEP40CA20 PO; -OMEP40CA34 PO; -POTA10CA42 PO; +SODIUM CHLORIDE 0.9% 10ML VIAL ONE; +VECURONIUM BROMIDE 10 MG/VIAL IV ONE
[2020-10-07] MEDS ORDERED: SODIUM BICARBONATE 8.4% 1 MEQ/ML 50ML SYR IV ONE ×2 (14:30→16:15)
[2020-10-07] MEDS ORDERED: DEXTROSE 50% WATER 50ML SYRINGE IV ONE (14:30)
[2020-10-07] MEDS ORDERED: INSULIN REGULAR (HUMULIN R) 300UNITS/3ML VIAL IV ONE (14:30)
[2020-10-07] MEDS ORDERED: DOPAMINE 400MG/250ML PREMIX 250 ML IV ONE (14:30)
[2020-10-07] MEDS ORDERED: CALCIUM CHLORIDE 1GM/10ML SYR IV ONE (14:30)
[2020-10-07] MEDS ORDERED: LORAZEPAM 2MG/ML CPJ IV ONE (15:00)
[2020-10-07] MEDS ORDERED: MIDAZOLAM HCL 100 MG in DEXT 5% WATER 80 ML IV ONE (15:00)
[2020-10-07] MEDS ORDERED: PIPERACILLIN/TAZ 3.375G PREMIX 50 ML IV ONE (15:00)
[2020-10-07] MEDS ORDERED: ETOMIDATE 2MG/ML 10ML VIAL IV ONE (15:00)
[2020-10-07] MEDS ORDERED: SODIUM CHLORIDE 0.9% 1000ML BAG (SEPSIS BOLUS) IV ONE (15:15)
[2020-10-07 15:39] LABS: BASOPHILS % 0.1 % (0.0-2.0); HEMATOCRIT. 25.1 % (36.0-48.0); HEMOGLOBIN. 7.1 g/dL (12.0-16.0); LYMPHOCYTES % 19.8 % (20.0-50.0); MEAN CORPUSCULAR HEMOGLOBIN 27.9 pg (28.0-32.0); MEAN PLATELET VOLUME 9.1 fl (7.4-10.4); MONOCYTES % 1.6 % (2.0-8.0); NEUTROPHILS % 78.5 % (40.0-76.0); PLATELET 111 x1000/uL (130-400); RED BLOOD CELL COUNT 2.56 mill/uL (4.2-5.4); RED CELL DISTRIBUTION WIDTH 16.6 % (11.6-14.6)
[2020-10-07] MEDS ORDERED: EPINEPHRINE 5 MG in SODIUM CHLORIDE 0.9% 245 ML IV STA (15:41)
[2020-10-07 15:53] LABS: CHLORIDE 105 mEq/L (98-107)
[2020-10-07 15:58] LABS: INR 1.6; PROTHROMBIN TIME 16.6 sec (9.6-11.0)
[2020-10-07] MEDS ORDERED: NOREPINEPHRINE 8 MG in DEXT 5% WATER 242 ML IV STA (16:01)
[2020-10-07 16:02] LABS: T4 FREE 0.61 ng/dL (0.76-1.46)
[2020-10-07 16:07] LABS: D-DIMER > 35.20 mg/L FEU (<0.50)
[2020-10-07] MEDS ORDERED: SODIUM BICARBONATE 8.4% MEQ/ML 50ML VIAL IV ONE (16:10)
[2020-10-07 16:12] LABS: BG BASE EXCESS -14.6 mmol/L (-2.0-2.0); BG CARBOXYHEMOGLOBIN 0.2 % (0.5-1.5); BG DEOXYHEMOGLOBIN 1.1 % (0.0-5.0); BG FRACTION INSPIRED OXYGEN 100; BG HCO3 ACT 14.1 mmol/L (22.0-26.0); BG METHEMOGLOBIN 0.2 % (0.0-1.5); BG OXYGEN SATURATION 98.9 % (92.0-98.5); BG OXYHEMOGLOBIN 98.5 % (94.0-97.0); BG PCO2 46.8 mmHg (35.0-45.0); BG PH 7.096 (7.350-7.450); BG PO2 196.1 mmHg (75.0-100.0); BG SAMPLE SITE RIGHT RADIAL; BG TOTAL HEMOGLOBIN 7.6 g/dL (12.0-18.0); BG VENT MODE VENT - AC
[2020-10-07 16:14] LABS: CLARITY URINE CLOUDY (CLEAR); COLOR URINE DARK YELLOW (YELLOW); KETONES URINE TRACE (NEGATIVE); LEUKOCYTE ESTERASE URINE TRACE (NEGATIVE); NITRITE URINE NEGATIVE (NEGATIVE); OCCULT BLOOD URINE NEGATIVE (NEGATIVE); PROTEIN URINE 1+ (NEGATIVE)
[2020-10-07] MEDS ORDERED: ALBUTEROL (0.083%) 2.5MG/3ML NEB HHN ONE (16:15)
[2020-10-07] MEDS: EPINEPHRINE 5 MG in SODIUM CHLORIDE 0.9% 245 ML IV SCH ×2 (16:27→21:48)
[2020-10-07] MEDS ORDERED: LIDOCAINE HCL 1% 20ML VIAL (Pyxis) INJ ONE (16:32)
[2020-10-07] MEDS ORDERED: HEPARIN 1000 UNITS/ML 10ML ONE (16:32)
[2020-10-07] MEDS: SODIUM BICARBONATE 150 MEQ in SODIUM CHLORIDE 0.45% 1,000 ML IV SCH (17:00)
[2020-10-07 17:16] LABS: *AMPHETAMINES SCREEN URINE NEGATIVE (NEGATIVE); *BARBITURATES SCREEN URINE NEGATIVE (NEGATIVE); *BENZODIAZEPINES SCREEN URINE NEGATIVE (NEGATIVE); *COCAINE SCREEN URINE NEGATIVE (NEGATIVE)
[2020-10-07 17:17] LABS: CANNABINOID URINE SCREEN NEGATIVE (NEGATIVE); METHADONE URINE SCREEN NEGATIVE (NEGATIVE); OPIATES URINE SCREEN PRESUMTIVE POSITIVE (NEGATIVE); PHENCYCLIDINE URINE SCREEN NEGATIVE (NEGATIVE)
[2020-10-07] MEDS ORDERED: VANCOMYCIN 1500MG in DEXTROSE 5% WATER 250ML IV SCH (18:30)
[2020-10-07 19:55] LABS: BG CARBOXYHEMOGLOBIN 0.1 % (0.5-1.5); BG DEOXYHEMOGLOBIN 0.5 % (0.0-5.0); BG FRACTION INSPIRED OXYGEN 100; BG HCO3 ACT 7.8 mmol/L (22.0-26.0); BG METHEMOGLOBIN 0.4 % (0.0-1.5); BG OXYGEN SATURATION 99.5 % (92.0-98.5); BG PCO2 21.8 mmHg (35.0-45.0); BG PO2 285.7 mmHg (75.0-100.0); BG SAMPLE SITE RIGHT RADIAL; BG TOTAL HEMOGLOBIN 9.4 g/dL (12.0-18.0); BG VENT MODE VENT - AC
[2020-10-07 20:01] LABS: HEPATITIS B SURFACE ANTIGEN NEGATIVE
[2020-10-07] MEDS: IPRATROPIUM/ALBUTEROL 0.5-3(2.5)MG/3ML NEB HHN SCH (20:24)
[2020-10-07] MEDS ORDERED: DEXTROSE 50% WATER 50ML SYRINGE IV PRN (21:30)
[2020-10-07] MEDS ORDERED: FENTANYL CITRATE/PF 2,500 MCG in SODIUM CHLORIDE 0.9% 200 ML IV PRN (21:35)
[2020-10-07] MEDS ORDERED: PIPERACILLIN/TAZOBACTAM 3.375 G/VIAL IV SCH (22:00)
[2020-10-07] MEDS: INSULIN LISPRO 100 UNITS/ML SUBCUT SCH (22:04)
[2020-10-07] MEDS: BLOOD SUGAR DIAGNOSTIC STRIP TEST SCH (22:30)
[2020-10-07] MEDS: PHENYLEPHRINE 100 MG in DEXT 5% WATER 240 ML IV PRN (23:04)
[2020-10-08] VITALS (128 sets, daily range): BP systolic 51–203; BP diastolic 24–113
[2020-10-08] MEDS: IPRATROPIUM/ALBUTEROL 0.5-3(2.5)MG/3ML NEB HHN SCH
[2020-10-08] MEDS: EPINEPHRINE 5 MG in SODIUM CHLORIDE 0.9% 245 ML IV SCH ×5 (00:28→15:16)
[2020-10-08 00:39] LABS: BG CARBOXYHEMOGLOBIN 0.3 % (0.5-1.5); BG DEOXYHEMOGLOBIN 0.5 % (0.0-5.0); BG FRACTION INSPIRED OXYGEN 100; BG HCO3 ACT 14.8 mmol/L (22.0-26.0); BG METHEMOGLOBIN 0.4 % (0.0-1.5); BG OXYGEN SATURATION 99.5 % (92.0-98.5); BG OXYHEMOGLOBIN 98.8 % (94.0-97.0); BG PCO2 25.4 mmHg (35.0-45.0); BG PH 7.382 (7.350-7.450); BG PO2 254.3 mmHg (75.0-100.0); BG SAMPLE SITE RIGHT RADIAL; BG TOTAL HEMOGLOBIN 9.6 g/dL (12.0-18.0); BG VENT MODE VENT - AC
[2020-10-08] MEDS: PIPERACILLIN/TAZOBACTAM 2.25G in DEXTROSE 5% WATER 50ML IV SCH ×4 (02:29→22:09)
[2020-10-08] MEDS: MIDAZOLAM HCL 100 MG in SODIUM CHLORIDE 0.9% 80 ML IV PRN (02:44)
[2020-10-08] MEDS: SODIUM BICARBONATE 150 MEQ in SODIUM CHLORIDE 0.45% 1,000 ML IV SCH (04:00)
[2020-10-08 05:18] LABS: BG BASE EXCESS 0.9 mmol/L (-2.0-2.0); BG FRACTION INSPIRED OXYGEN 100; BG HCO3 ACT 19.4 mmol/L (22.0-26.0); BG PH 7.626 (7.350-7.450); BG PO2 223.7 mmHg (75.0-100.0); BG SAMPLE SITE RIGHT RADIAL; BG VENT MODE VENT - AC
[2020-10-08 06:02] LABS: CHLORIDE 100 mEq/L (98-107)
[2020-10-08 06:08] LABS: LDL CHOLESTEROL 10 mg/dL (5-100)
[2020-10-08 06:10] LABS: HDL CHOLESTEROL 9 mg/dL (40-59)
[2020-10-08] MEDS: BLOOD SUGAR DIAGNOSTIC STRIP TEST SCH ×3 (07:00→17:49)
[2020-10-08] MEDS: INSULIN LISPRO 100 UNITS/ML SUBCUT SCH ×3 (07:33→17:51)
[2020-10-08] MEDS: NOREPINEPHRINE 32 MG in DEXT 5% WATER 218 ML IV PRN (09:02)
[2020-10-08] MEDS: PANTOPRAZOLE SODIUM 40 MG/VIAL IV SCH (09:03)
[2020-10-08 09:39] LABS: BASOPHILS % 0.5 % (0.0-2.0); EOSINOPHILS % 0.2 % (0.0-5.0); HEMATOCRIT. 25.3 % (36.0-48.0); LYMPHOCYTES % 32.2 % (20.0-50.0); MEAN CORPUSCULAR HEMOGLOBIN 27.7 pg (28.0-32.0); MEAN CORPUSCULAR VOLUME 84.6 fL (81.0-99.0); MEAN PLATELET VOLUME 8.4 fl (7.4-10.4); MONOCYTES % 4.4 % (2.0-8.0); NEUTROPHILS % 62.7 % (40.0-76.0); PLATELET 93 x1000/uL (130-400); RED BLOOD CELL COUNT 2.99 mill/uL (4.2-5.4); RED CELL DISTRIBUTION WIDTH 15.6 % (11.6-14.6)
[2020-10-08 09:42] LABS: HEMOGLOBIN. 8.3 g/dL (12.0-16.0)
[2020-10-08] MEDS: DEXT 5%/0.45% NACL 1000ML 1,000 ML IV SCH ×2 (11:32→22:08)
[2020-10-08] MEDS: INSULIN GLARGINE UD 100 UNITS/ML SYR SUBCUT SCH ×2 (11:33→22:07)
[2020-10-08] MEDS: IPRATROPIUM BROMIDE (0.02%) 0.5MG/2.5ML NEB HHN SCH ×3 (12:40→20:14)
[2020-10-08] MEDS: ACETAMINOPHEN 500MG TABLET PO PRN (13:56)
[2020-10-08] MEDS: PHENYLEPHRINE 100 MG in DEXT 5% WATER 240 ML IV PRN (17:41)
[2020-10-08] MEDS ORDERED: AMIODARONE HCL 900 MG in DEXT 5% WATER 482 ML IV PRN (19:30)
[2020-10-08] MEDS ORDERED: AMIODARONE HCL 150 MG in DEXT 5% WATER 100 ML IV NR (19:30)
[2020-10-09] VITALS (96 sets, daily range): BP systolic 54–218; BP diastolic 18–136
[2020-10-09] MEDS: BLOOD SUGAR DIAGNOSTIC STRIP TEST SCH ×4 (00:12→17:32)
[2020-10-09] MEDS: INSULIN LISPRO 100 UNITS/ML SUBCUT SCH ×4 (00:24→17:33)
[2020-10-09] MEDS: IPRATROPIUM BROMIDE (0.02%) 0.5MG/2.5ML NEB HHN SCH ×4 (00:50→20:27)
[2020-10-09] MEDS: PHENYLEPHRINE 100 MG in DEXT 5% WATER 240 ML IV PRN ×2 (05:16→12:51)
[2020-10-09] MEDS: PIPERACILLIN/TAZOBACTAM 2.25G in DEXTROSE 5% WATER 50ML IV SCH (06:16)
[2020-10-09 06:28] LABS: BASOPHILS % 0.4 % (0.0-2.0); EOSINOPHILS % 3.2 % (0.0-5.0); HEMATOCRIT. 26.5 % (36.0-48.0); HEMOGLOBIN. 8.6 g/dL (12.0-16.0); LYMPHOCYTES % 23.2 % (20.0-50.0); MEAN CORPUSCULAR HEMOGLOBIN 27.2 pg (28.0-32.0); MEAN CORPUSCULAR VOLUME 83.8 fL (81.0-99.0); MEAN PLATELET VOLUME 8.1 fl (7.4-10.4); MONOCYTES % 4.9 % (2.0-8.0); NEUTROPHILS % 68.3 % (40.0-76.0); PLATELET 56 x1000/uL (130-400); RED BLOOD CELL COUNT 3.16 mill/uL (4.2-5.4); RED CELL DISTRIBUTION WIDTH 15.7 % (11.6-14.6)
[2020-10-09 06:31] LABS: CHLORIDE 98 mEq/L (98-107)
[2020-10-09] MEDS: PANTOPRAZOLE SODIUM 40 MG/VIAL IV SCH (08:30)
[2020-10-09 09:03] LABS: BG BASE EXCESS -2.8 mmol/L (-2.0-2.0); BG CARBOXYHEMOGLOBIN 1.1 % (0.5-1.5); BG DEOXYHEMOGLOBIN 7.3 % (0.0-5.0); BG FRACTION INSPIRED OXYGEN 50; BG HCO3 ACT 20.6 mmol/L (22.0-26.0); BG METHEMOGLOBIN 0.4 % (0.0-1.5); BG OXYGEN SATURATION 92.6 % (92.0-98.5); BG OXYHEMOGLOBIN 91.2 % (94.0-97.0); BG PCO2 30.2 mmHg (35.0-45.0); BG PH 7.452 (7.350-7.450); BG PO2 64.9 mmHg (75.0-100.0); BG SAMPLE SITE RIGHT RADIAL; BG TOTAL HEMOGLOBIN 8.6 g/dL (12.0-18.0); BG VENT MODE VENT - AC
[2020-10-09] MEDS: SODIUM CHLORIDE 0.9% 1,000 ML IV SCH (09:15)
[2020-10-09] MEDS: INSULIN GLARGINE UD 100 UNITS/ML SYR SUBCUT SCH ×2 (10:49→22:41)
[2020-10-09] MEDS: VASOPRESSIN 20 UNIT in SODIUM CHLORIDE 0.9% 99 ML IV PRN (11:21)
[2020-10-09] MEDS: NOREPINEPHRINE 32 MG in DEXT 5% WATER 218 ML IV PRN (11:30)
[2020-10-09] MEDS ORDERED: VANCOMYCIN 1250MG in DEXTROSE 5% WATER 250ML IV NR (12:00)
[2020-10-09] MEDS: MEROPENEM 500 MG in SODIUM CHLORIDE 0.9% 100 ML IV SCH (16:38)
[2020-10-10] VITALS (92 sets, daily range): BP systolic 59–240; BP diastolic 23–154
[2020-10-10] MEDS: VASOPRESSIN 20 UNIT in SODIUM CHLORIDE 0.9% 99 ML IV PRN ×3 (00:01→16:59)
[2020-10-10] MEDS: IPRATROPIUM BROMIDE (0.02%) 0.5MG/2.5ML NEB HHN SCH ×4 (01:30→20:10)
[2020-10-10] MEDS: INSULIN LISPRO 100 UNITS/ML SUBCUT SCH ×4 (02:10→18:11)
[2020-10-10] MEDS: SODIUM CHLORIDE 0.9% 1,000 ML IV SCH (04:00)
[2020-10-10] MEDS: BLOOD SUGAR DIAGNOSTIC STRIP TEST SCH ×4 (06:00→18:00)
[2020-10-10] MEDS: MEROPENEM 500 MG in SODIUM CHLORIDE 0.9% 100 ML IV SCH ×4 (06:36→20:15)
[2020-10-10 06:47] LABS: HEMATOCRIT. 23.3 % (36.0-48.0); HEMOGLOBIN. 7.7 g/dL (12.0-16.0); MEAN CORPUSCULAR HEMOGLOBIN 27.3 pg (28.0-32.0); MEAN CORPUSCULAR VOLUME 82.7 fL (81.0-99.0); MEAN PLATELET VOLUME 8.4 fl (7.4-10.4); RED BLOOD CELL COUNT 2.82 mill/uL (4.2-5.4); RED CELL DISTRIBUTION WIDTH 16.2 % (11.6-14.6)
[2020-10-10 07:06] LABS: PHOSPHORUS 2.7 mg/dL (2.5-4.9)
[2020-10-10 07:11] LABS: PLATELET 40 x1000/uL (130-400)
[2020-10-10] MEDS: PHENYLEPHRINE 100 MG in DEXT 5% WATER 240 ML IV PRN ×3 (07:17→16:04)
[2020-10-10 08:18] LABS: BG BASE EXCESS -1.5 mmol/L (-2.0-2.0); BG CARBOXYHEMOGLOBIN 0.7 % (0.5-1.5); BG FRACTION INSPIRED OXYGEN 70; BG HCO3 ACT 22.8 mmol/L (22.0-26.0); BG METHEMOGLOBIN 0.4 % (0.0-1.5); BG OXYGEN SATURATION 87.9 % (92.0-98.5); BG OXYHEMOGLOBIN 86.9 % (94.0-97.0); BG PCO2 36.5 mmHg (35.0-45.0); BG PEEP (cmH2O) 0 cmH2O; BG PH 7.414 (7.350-7.450); BG PO2 58.2 mmHg (75.0-100.0); BG SAMPLE SITE RIGHT RADIAL; BG TOTAL HEMOGLOBIN 7.3 g/dL (12.0-18.0); BG VENT MODE VENT - AC/VC
[2020-10-10] MEDS: PANTOPRAZOLE SODIUM 40 MG/VIAL IV SCH (09:03)
[2020-10-10] MEDS: INSULIN GLARGINE UD 100 UNITS/ML SYR SUBCUT SCH ×2 (10:51→22:00)
[2020-10-10] MEDS ORDERED: MAGNESIUM 2 G PREMIX 50 ML IV NR ×2 (11:00→12:00)
[2020-10-10 14:34] LABS: PLATELET ESTIMATE MARKEDLY DECREASED
[2020-10-10] MEDS: FENTANYL CITRATE/PF 2,500 MCG in SODIUM CHLORIDE 0.9% 200 ML IV PRN (23:45)
[2020-10-11] VITALS (95 sets, daily range): BP systolic 67–157; BP diastolic 32–112
[2020-10-11] MEDS: NOREPINEPHRINE 32 MG in DEXT 5% WATER 218 ML IV PRN
[2020-10-11] MEDS: PHENYLEPHRINE 100 MG in DEXT 5% WATER 240 ML IV PRN ×3 (00:01→16:26)
[2020-10-11] MEDS: VASOPRESSIN 20 UNIT in SODIUM CHLORIDE 0.9% 99 ML IV PRN ×2 (00:05→12:25)
[2020-10-11] MEDS: IPRATROPIUM BROMIDE (0.02%) 0.5MG/2.5ML NEB HHN SCH ×4 (02:01→20:34)
[2020-10-11] MEDS: INSULIN LISPRO 100 UNITS/ML SUBCUT SCH ×5 (03:16→23:54)
[2020-10-11 05:50] LABS: HEMATOCRIT. 24.6 % (36.0-48.0); HEMOGLOBIN. 7.9 g/dL (12.0-16.0); MEAN CORPUSCULAR HEMOGLOBIN 27.5 pg (28.0-32.0); MEAN CORPUSCULAR VOLUME 85.5 fL (81.0-99.0); MEAN PLATELET VOLUME 8.4 fl (7.4-10.4); RED BLOOD CELL COUNT 2.88 mill/uL (4.2-5.4); RED CELL DISTRIBUTION WIDTH 15.9 % (11.6-14.6)
[2020-10-11] MEDS: BLOOD SUGAR DIAGNOSTIC STRIP TEST SCH ×5 (06:00→23:54)
[2020-10-11 06:08] LABS: PLATELET 42 x1000/uL (130-400)
[2020-10-11] MEDS: ACETAMINOPHEN 500MG TABLET PO PRN (08:54)
[2020-10-11] MEDS: PANTOPRAZOLE SODIUM 40 MG/VIAL IV SCH (08:54)
[2020-10-11 09:37] LABS: BG CARBOXYHEMOGLOBIN 0.7 % (0.5-1.5); BG DEOXYHEMOGLOBIN 0.6 % (0.0-5.0); BG FRACTION INSPIRED OXYGEN 60; BG HCO3 ACT 19.9 mmol/L (22.0-26.0); BG METHEMOGLOBIN 0.3 % (0.0-1.5); BG OXYGEN SATURATION 99.4 % (92.0-98.5); BG OXYHEMOGLOBIN 98.4 % (94.0-97.0); BG PCO2 26.9 mmHg (35.0-45.0); BG PH 7.487 (7.350-7.450); BG PO2 138.1 mmHg (75.0-100.0); BG SAMPLE SITE RIGHT RADIAL; BG TOTAL HEMOGLOBIN 7.4 g/dL (12.0-18.0); BG VENT MODE VENT - AC
[2020-10-11] MEDS: INSULIN GLARGINE UD 100 UNITS/ML SYR SUBCUT SCH ×2 (10:02→23:53)
[2020-10-11] MEDS ORDERED: FUROSEMIDE 40MG/4ML VIAL IVP NR (11:15)
[2020-10-11 12:28] LABS: PLATELET ESTIMATE DECREASED
[2020-10-12] VITALS (102 sets, daily range): BP systolic 68–138; BP diastolic 35–93
[2020-10-12] MEDS: IPRATROPIUM BROMIDE (0.02%) 0.5MG/2.5ML NEB HHN SCH ×4 (02:46→21:38)
[2020-10-12] MEDS: PHENYLEPHRINE 100 MG in DEXT 5% WATER 240 ML IV PRN ×2 (05:30→18:37)
[2020-10-12 05:39] LABS: HEMATOCRIT. 26.5 % (36.0-48.0); HEMOGLOBIN. 8.6 g/dL (12.0-16.0); MEAN CORPUSCULAR HEMOGLOBIN 26.7 pg (28.0-32.0); MEAN CORPUSCULAR VOLUME 82.4 fL (81.0-99.0); RED BLOOD CELL COUNT 3.21 mill/uL (4.2-5.4); RED CELL DISTRIBUTION WIDTH 16.1 % (11.6-14.6)
[2020-10-12 05:42] LABS: PHOSPHORUS 2.3 mg/dL (2.5-4.9)
[2020-10-12] MEDS: INSULIN LISPRO 100 UNITS/ML SUBCUT SCH ×3 (06:00→17:21)
[2020-10-12] MEDS: BLOOD SUGAR DIAGNOSTIC STRIP TEST SCH ×3 (06:00→17:21)
[2020-10-12] MEDS: MEROPENEM 500 MG in SODIUM CHLORIDE 0.9% 100 ML IV SCH ×2 (06:27→17:43)
[2020-10-12] MEDS: PANTOPRAZOLE SODIUM 40 MG/VIAL IV SCH (09:09)
[2020-10-12 10:20] LABS: MEAN PLATELET VOLUME 8.4 fl (7.4-10.4); PLATELET 51 x1000/uL (130-400); PLATELET ESTIMATE MARKEDLY DECREASED
[2020-10-12 10:54] LABS: BG BASE EXCESS -3.2 mmol/L (-2.0-2.0); BG CARBOXYHEMOGLOBIN 0.3 % (0.5-1.5); BG DEOXYHEMOGLOBIN 3.4 % (0.0-5.0); BG FRACTION INSPIRED OXYGEN 50; BG HCO3 ACT 21.8 mmol/L (22.0-26.0); BG METHEMOGLOBIN 0.5 % (0.0-1.5); BG OXYGEN SATURATION 96.6 % (92.0-98.5); BG OXYHEMOGLOBIN 95.8 % (94.0-97.0); BG PCO2 39.2 mmHg (35.0-45.0); BG PH 7.364 (7.350-7.450); BG PO2 91.8 mmHg (75.0-100.0); BG SAMPLE SITE LEFT RADIAL; BG VENT MODE VENT - AC
[2020-10-12] MEDS ORDERED: INSULIN GLARGINE UD 100 UNITS/ML SYR SUBCUT SCH (11:00)
[2020-10-12] MEDS ORDERED: POTASSIUM PHOS,M-BASIC-D-BASIC 10 MMOL in DEXT 5% WATER 246.6667 ML IV NR (16:00)
[2020-10-12] MEDS: FENTANYL CITRATE/PF 2,500 MCG in SODIUM CHLORIDE 0.9% 200 ML IV PRN (18:38)
[2020-10-12] MEDS: ACETAMINOPHEN 500MG TABLET PO PRN (20:14)
[2020-10-13] VITALS (99 sets, daily range): BP systolic 49–161; BP diastolic 31–91
[2020-10-13] MEDS: BLOOD SUGAR DIAGNOSTIC STRIP TEST SCH ×5 (00:25→23:43)
[2020-10-13] MEDS: IPRATROPIUM BROMIDE (0.02%) 0.5MG/2.5ML NEB HHN SCH ×4 (01:51→20:12)
[2020-10-13] MEDS: PHENYLEPHRINE 100 MG in DEXT 5% WATER 240 ML IV PRN ×2 (04:27→18:11)
[2020-10-13] MEDS: MEROPENEM 500 MG in SODIUM CHLORIDE 0.9% 100 ML IV SCH ×2 (05:15→17:25)
[2020-10-13] MEDS: INSULIN LISPRO 100 UNITS/ML SUBCUT SCH ×5 (06:00→23:43)
[2020-10-13] MEDS: PANTOPRAZOLE SODIUM 40 MG/VIAL IV SCH (08:21)
[2020-10-13 08:29] LABS: BG BASE EXCESS -3.2 mmol/L (-2.0-2.0); BG CARBOXYHEMOGLOBIN 0.2 % (0.5-1.5); BG DEOXYHEMOGLOBIN 1.4 % (0.0-5.0); BG FRACTION INSPIRED OXYGEN 45; BG HCO3 ACT 20.7 mmol/L (22.0-26.0); BG OXYGEN SATURATION 98.6 % (92.0-98.5); BG OXYHEMOGLOBIN 98.4 % (94.0-97.0); BG PH 7.428 (7.350-7.450); BG PO2 137.3 mmHg (75.0-100.0); BG SAMPLE SITE LEFT BRACHIAL; BG TOTAL HEMOGLOBIN 7.8 g/dL (12.0-18.0); BG TOTAL RESPIRATORY RATE 16 b/min; BG VENT MODE VENT - AC
[2020-10-13] MEDS ORDERED: ETOMIDATE 2MG/ML 10ML VIAL IV ONE (08:46)
[2020-10-13] MEDS ORDERED: VECURONIUM BROMIDE 10 MG/VIAL IV ONE (08:46)
[2020-10-13] MEDS ORDERED: SODIUM CHLORIDE 0.9% 10ML VIAL ONE (08:46)
[2020-10-13 08:58] LABS: BASOPHILS % 0.6 % (0.0-2.0); EOSINOPHILS % 2.4 % (0.0-5.0); HEMATOCRIT. 25.1 % (36.0-48.0); HEMOGLOBIN. 8.1 g/dL (12.0-16.0); LYMPHOCYTES % 15.1 % (20.0-50.0); MEAN CORPUSCULAR HEMOGLOBIN 26.9 pg (28.0-32.0); MEAN CORPUSCULAR VOLUME 83.6 fL (81.0-99.0); MEAN PLATELET VOLUME 9.6 fl (7.4-10.4); MONOCYTES % 7.3 % (2.0-8.0); NEUTROPHILS % 74.6 % (40.0-76.0); PLATELET 66 x1000/uL (130-400); RED CELL DISTRIBUTION WIDTH 16.3 % (11.6-14.6)
[2020-10-13] MEDS ORDERED: SODIUM BICARBONATE 8.4% 1 MEQ/ML 50ML SYR IV ONE (10:37)
[2020-10-13] MEDS ORDERED: EPINEPHRINE 0.1MG/ML (1:10,000) 10ML SYR ONE (10:37)
[2020-10-13] MEDS: SODIUM CHLORIDE 0.9% 1,000 ML IV SCH (11:07)
[2020-10-13 11:32] LABS: BG BASE EXCESS -3.4 mmol/L (-2.0-2.0); BG CARBOXYHEMOGLOBIN 0.9 % (0.5-1.5); BG DEOXYHEMOGLOBIN 1.6 % (0.0-5.0); BG FRACTION INSPIRED OXYGEN 40; BG HCO3 ACT 21.4 mmol/L (22.0-26.0); BG METHEMOGLOBIN 0.4 % (0.0-1.5); BG OXYGEN SATURATION 98.4 % (92.0-98.5); BG OXYHEMOGLOBIN 97.1 % (94.0-97.0); BG PCO2 37.3 mmHg (35.0-45.0); BG PH 7.377 (7.350-7.450); BG PO2 119.1 mmHg (75.0-100.0); BG SAMPLE SITE RIGHT RADIAL; BG TOTAL HEMOGLOBIN 7.7 g/dL (12.0-18.0); BG TOTAL RESPIRATORY RATE 21 b/min; BG VENT MODE VENT - CPAP
[2020-10-13] MEDS: VASOPRESSIN 20 UNIT in SODIUM CHLORIDE 0.9% 99 ML IV PRN ×2 (15:19→23:31)
[2020-10-13] MEDS ORDERED: AMIODARONE HCL 150 MG in DEXT 5% WATER 100 ML IV NR (16:00)
[2020-10-13] MEDS: AMIODARONE HCL 900 MG in DEXT 5% WATER 482 ML IV SCH (16:19)
[2020-10-13 16:20] LABS: BG BASE EXCESS -6.4 mmol/L (-2.0-2.0); BG CARBOXYHEMOGLOBIN 0.4 % (0.5-1.5); BG DEOXYHEMOGLOBIN 0.3 % (0.0-5.0); BG FRACTION INSPIRED OXYGEN 100; BG HCO3 ACT 19.3 mmol/L (22.0-26.0); BG METHEMOGLOBIN 0.4 % (0.0-1.5); BG OXYGEN SATURATION 99.7 % (92.0-98.5); BG OXYHEMOGLOBIN 98.9 % (94.0-97.0); BG PCO2 39.1 mmHg (35.0-45.0); BG PH 7.311 (7.350-7.450); BG PO2 292.5 mmHg (75.0-100.0); BG SAMPLE SITE RIGHT RADIAL; BG TOTAL HEMOGLOBIN 8.2 g/dL (12.0-18.0); BG TOTAL RESPIRATORY RATE 16 b/min; BG VENT MODE VENT - AC
[2020-10-13] MEDS ORDERED: MIDAZOLAM 100MG/100ML PMX 100 ML IV PRN (16:30)
[2020-10-13] MEDS: MIDAZOLAM HCL 100 MG in SODIUM CHLORIDE 0.9% 80 ML IV PRN (17:08)
[2020-10-13] MEDS: FENTANYL CITRATE/PF 2,500 MCG in SODIUM CHLORIDE 0.9% 200 ML IV PRN (17:09)
[2020-10-13] MEDS: MAGNESIUM OXIDE 400MG TABLET NG SCH (17:46)
[2020-10-13] MEDS ORDERED: MAGNESIUM 2 G PREMIX 50 ML IV NR (18:00)
[2020-10-14] VITALS (95 sets, daily range): BP systolic 78–189; BP diastolic 37–166
[2020-10-14] MEDS: IPRATROPIUM BROMIDE (0.02%) 0.5MG/2.5ML NEB HHN SCH ×4 (00:29→20:29)
[2020-10-14] MEDS: PHENYLEPHRINE 100 MG in DEXT 5% WATER 240 ML IV PRN ×3 (02:58→21:13)
[2020-10-14] MEDS: INSULIN LISPRO 100 UNITS/ML SUBCUT SCH ×3 (05:10→17:27)
[2020-10-14] MEDS: BLOOD SUGAR DIAGNOSTIC STRIP TEST SCH ×3 (05:11→17:24)
[2020-10-14] MEDS: MEROPENEM 500 MG in SODIUM CHLORIDE 0.9% 100 ML IV SCH (05:11)
[2020-10-14 05:57] LABS: HEMATOCRIT. 24.3 % (36.0-48.0); HEMOGLOBIN. 7.6 g/dL (12.0-16.0); MEAN CORPUSCULAR HEMOGLOBIN 26.8 pg (28.0-32.0); MEAN CORPUSCULAR VOLUME 85.3 fL (81.0-99.0); MEAN PLATELET VOLUME 9.3 fl (7.4-10.4); PLATELET 96 x1000/uL (130-400); RED BLOOD CELL COUNT 2.85 mill/uL (4.2-5.4); RED CELL DISTRIBUTION WIDTH 16.9 % (11.6-14.6)
[2020-10-14 06:06] LABS: PHOSPHORUS 3.7 mg/dL (2.5-4.9)
[2020-10-14] MEDS: PANTOPRAZOLE SODIUM 40 MG/VIAL IV SCH (08:29)
[2020-10-14] MEDS: MAGNESIUM OXIDE 400MG TABLET NG SCH (08:30)
[2020-10-14 09:35] LABS: BG BASE EXCESS -5.5 mmol/L (-2.0-2.0); BG CARBOXYHEMOGLOBIN 0.4 % (0.5-1.5); BG DEOXYHEMOGLOBIN 0.5 % (0.0-5.0); BG FRACTION INSPIRED OXYGEN 70; BG HCO3 ACT 18.9 mmol/L (22.0-26.0); BG METHEMOGLOBIN 0.3 % (0.0-1.5); BG OXYGEN SATURATION 99.5 % (92.0-98.5); BG OXYHEMOGLOBIN 98.8 % (94.0-97.0); BG PCO2 32.4 mmHg (35.0-45.0); BG PH 7.384 (7.350-7.450); BG PO2 194.9 mmHg (75.0-100.0); BG SAMPLE SITE RIGHT RADIAL; BG TOTAL HEMOGLOBIN 7.3 g/dL (12.0-18.0); BG VENT MODE VENT - AC
[2020-10-14] MEDS: MIDAZOLAM HCL 100 MG in SODIUM CHLORIDE 0.9% 100 ML IV PRN (09:38)
[2020-10-14] MEDS: SODIUM CHLORIDE 0.9% 1,000 ML IV SCH (11:29)
[2020-10-14 14:24] LABS: PLATELET ESTIMATE DECREASED
[2020-10-14] MEDS ORDERED: ALBUMIN HUMAN 12.5G/250ML (5%) IV SCH (14:45)
[2020-10-14] MEDS: BACITRACIN 15GM TUBE TOP SCH (14:46)
[2020-10-14] MEDS: AMIODARONE HCL 900 MG in DEXT 5% WATER 482 ML IV SCH (16:07)
[2020-10-14] MEDS ORDERED: FENTANYL CITRATE/PF 2,500 MCG in SODIUM CHLORIDE 0.9% 200 ML IV PRN (16:15)
[2020-10-15] VITALS (107 sets, daily range): BP systolic 57–217; BP diastolic 33–104
[2020-10-15] MEDS: IPRATROPIUM BROMIDE (0.02%) 0.5MG/2.5ML NEB HHN SCH ×4 (01:38→20:13)
[2020-10-15] MEDS: BLOOD SUGAR DIAGNOSTIC STRIP TEST SCH ×5 (06:19→23:48)
[2020-10-15] MEDS: PHENYLEPHRINE 100 MG in DEXT 5% WATER 240 ML IV PRN ×3 (06:20→22:01)
[2020-10-15] MEDS: INSULIN LISPRO 100 UNITS/ML SUBCUT SCH ×5 (06:21→23:45)
[2020-10-15] MEDS: MIDAZOLAM HCL 100 MG in SODIUM CHLORIDE 0.9% 100 ML IV PRN (06:35)
[2020-10-15 06:44] LABS: BASOPHILS % 0.4 % (0.0-2.0); EOSINOPHILS % 1.8 % (0.0-5.0); HEMATOCRIT. 21.5 % (36.0-48.0); LYMPHOCYTES % 13.5 % (20.0-50.0); MEAN CORPUSCULAR HEMOGLOBIN 27.4 pg (28.0-32.0); MEAN CORPUSCULAR VOLUME 84.3 fL (81.0-99.0); MEAN PLATELET VOLUME 8.8 fl (7.4-10.4); MONOCYTES % 7.1 % (2.0-8.0); NEUTROPHILS % 77.2 % (40.0-76.0); PLATELET 124 x1000/uL (130-400); RED BLOOD CELL COUNT 2.55 mill/uL (4.2-5.4)
[2020-10-15 06:49] LABS: CHLORIDE 105 mEq/L (98-107)
[2020-10-15 08:33] LABS: BG BASE EXCESS -9.5 mmol/L (-2.0-2.0); BG CARBOXYHEMOGLOBIN 1.1 % (0.5-1.5); BG DEOXYHEMOGLOBIN 0.8 % (0.0-5.0); BG FRACTION INSPIRED OXYGEN 40; BG HCO3 ACT 15.8 mmol/L (22.0-26.0); BG METHEMOGLOBIN 0.3 % (0.0-1.5); BG OXYGEN SATURATION 99.2 % (92.0-98.5); BG OXYHEMOGLOBIN 97.8 % (94.0-97.0); BG PCO2 31.6 mmHg (35.0-45.0); BG PEEP (cmH2O) 0 cmH2O; BG PH 7.316 (7.350-7.450); BG SAMPLE SITE RIGHT RADIAL; BG TOTAL HEMOGLOBIN 7.5 g/dL (12.0-18.0); BG VENT MODE VENT - AC
[2020-10-15] MEDS: SODIUM CHLORIDE 0.9% 1,000 ML IV SCH (09:15)
[2020-10-15] MEDS: FENTANYL CITRATE/PF 2,500 MCG in SODIUM CHLORIDE 0.9% 200 ML IV PRN (09:27)
[2020-10-15] MEDS ORDERED: INSULIN GLARGINE UD 100 UNITS/ML SYR SUBCUT ONE (10:15)
[2020-10-15] MEDS ORDERED: SODIUM BICARBONATE 8.4% 1 MEQ/ML 50ML SYR IV ONE ×2 (10:30→10:45)
[2020-10-15] MEDS: NOREPINEPHRINE 32 MG in DEXT 5% WATER 218 ML IV PRN (11:00)
[2020-10-15] MEDS: INSULIN GLARGINE UD 100 UNITS/ML SYR SUBCUT SCH ×2 (12:59→22:36)
[2020-10-15] MEDS: MEROPENEM 500MG in NORMAL SALINE 50ML IV SCH (13:00)
[2020-10-15] MEDS: PANTOPRAZOLE SODIUM 40 MG/VIAL IV SCH (13:00)
[2020-10-15] MEDS: MAGNESIUM OXIDE 400MG TABLET NG SCH (13:01)
[2020-10-15] MEDS: BACITRACIN 15GM TUBE TOP SCH (13:02)
[2020-10-15] MEDS: AMIODARONE HCL 900 MG in DEXT 5% WATER 482 ML IV SCH (22:56)
[2020-10-16] VITALS (96 sets, daily range): BP systolic 78–145; BP diastolic 41–101
[2020-10-16 00:46] LABS: HEMATOCRIT 31.6 % (36.0-48.0); HEMOGLOBIN 10.6 g/dL (12.0-16.0)
[2020-10-16] MEDS: TOTAL PARENTERAL NUTRITION 1,400 ML IV SCH ×2 (00:47→20:42)
[2020-10-16] MEDS: MIDAZOLAM HCL 100 MG in SODIUM CHLORIDE 0.9% 100 ML IV PRN (02:26)
[2020-10-16] MEDS: IPRATROPIUM BROMIDE (0.02%) 0.5MG/2.5ML NEB HHN SCH ×5 (02:33→23:31)
[2020-10-16] MEDS: INSULIN LISPRO 100 UNITS/ML SUBCUT SCH ×3 (05:55→17:26)
[2020-10-16] MEDS: BLOOD SUGAR DIAGNOSTIC STRIP TEST SCH ×3 (05:56→17:26)
[2020-10-16 06:55] LABS: BASOPHILS % 1.2 % (0.0-2.0); EOSINOPHILS % 1.2 % (0.0-5.0); HEMOGLOBIN. 10.5 g/dL (12.0-16.0); LYMPHOCYTES % 13.1 % (20.0-50.0); MEAN CORPUSCULAR HEMOGLOBIN 27.7 pg (28.0-32.0); MEAN CORPUSCULAR VOLUME 81.8 fL (81.0-99.0); MEAN PLATELET VOLUME 8.4 fl (7.4-10.4); MONOCYTES % 6.2 % (2.0-8.0); NEUTROPHILS % 78.3 % (40.0-76.0); PLATELET 120 x1000/uL (130-400); RED BLOOD CELL COUNT 3.79 mill/uL (4.2-5.4); RED CELL DISTRIBUTION WIDTH 15.3 % (11.6-14.6)
[2020-10-16 07:13] LABS: FERRITIN 307 ng/mL (10-291)
[2020-10-16 08:15] LABS: BG BASE EXCESS -3.3 mmol/L (-2.0-2.0); BG CARBOXYHEMOGLOBIN 0.1 % (0.5-1.5); BG DEOXYHEMOGLOBIN 3.9 % (0.0-5.0); BG FRACTION INSPIRED OXYGEN 30; BG HCO3 ACT 21.2 mmol/L (22.0-26.0); BG METHEMOGLOBIN 0.2 % (0.0-1.5); BG OXYGEN SATURATION 96.1 % (92.0-98.5); BG OXYHEMOGLOBIN 95.8 % (94.0-97.0); BG PCO2 36.2 mmHg (35.0-45.0); BG PH 7.386 (7.350-7.450); BG PO2 84.9 mmHg (75.0-100.0); BG SAMPLE SITE RIGHT RADIAL; BG TOTAL HEMOGLOBIN 11.3 g/dL (12.0-18.0); BG VENT MODE VENT - AC
[2020-10-16] MEDS: MAGNESIUM OXIDE 400MG TABLET NG SCH (09:00)
[2020-10-16] MEDS ORDERED: LIDOCAINE HCL 1% 20ML VIAL (Pyxis) INJ ONE ×2 (09:04→13:06)
[2020-10-16] MEDS: PANTOPRAZOLE SODIUM 40 MG/VIAL IV SCH (09:21)
[2020-10-16] MEDS: MEROPENEM 500MG in NORMAL SALINE 50ML IV SCH (09:21)
[2020-10-16] MEDS: SODIUM CHLORIDE 0.9% 1,000 ML IV SCH (09:22)
[2020-10-16] MEDS: BACITRACIN 15GM TUBE TOP SCH (09:23)
[2020-10-16] MEDS: AMIODARONE HCL 900 MG in DEXT 5% WATER 482 ML IV SCH ×2 (09:23→09:24)
[2020-10-16] MEDS ORDERED: KCL 20MEQ/100ML PREMIX 100 ML IV ONE ×2 (09:30→11:30)
[2020-10-16] MEDS: INSULIN GLARGINE UD 100 UNITS/ML SYR SUBCUT SCH (11:09)
[2020-10-16 14:41] LABS: VITAMIN B12 SERUM > 2000.0 pg/mL (211-911)
[2020-10-16] MEDS: PHENYLEPHRINE 100 MG in DEXT 5% WATER 240 ML IV PRN (18:46)
[2020-10-16] MEDS: FAT EMULSIONS 250 ML IV SCH (20:41)
[2020-10-16] MEDS ORDERED: FAT EMULSIONS 500 ML IV SCH (21:00)
[2020-10-16] MEDS ORDERED: INSULIN GLARGINE UD 100 UNITS/ML SYR SUBCUT SCH (22:00)
[2020-10-17] VITALS (116 sets, daily range): BP systolic 74–142; BP diastolic 41–101
[2020-10-17] MEDS: FAT EMULSIONS 250 ML IV SCH (02:05)
[2020-10-17] MEDS: INSULIN LISPRO 100 UNITS/ML SUBCUT SCH ×4 (02:18→18:00)
[2020-10-17] MEDS: IPRATROPIUM BROMIDE (0.02%) 0.5MG/2.5ML NEB HHN SCH ×3 (03:53→16:15)
[2020-10-17] MEDS: BLOOD SUGAR DIAGNOSTIC STRIP TEST SCH ×4 (06:43→18:36)
[2020-10-17 06:58] LABS: CHLORIDE 101 mEq/L (98-107)
[2020-10-17 08:05] LABS: BASOPHILS % 0.4 % (0.0-2.0); EOSINOPHILS % 0.9 % (0.0-5.0); HEMATOCRIT. 31.6 % (36.0-48.0); HEMOGLOBIN. 10.9 g/dL (12.0-16.0); LYMPHOCYTES % 9.7 % (20.0-50.0); MEAN PLATELET VOLUME 8.7 fl (7.4-10.4); MONOCYTES % 4.5 % (2.0-8.0); NEUTROPHILS % 84.5 % (40.0-76.0); PLATELET 103 x1000/uL (130-400); RED BLOOD CELL COUNT 3.68 mill/uL (4.2-5.4); RED CELL DISTRIBUTION WIDTH 16.7 % (11.6-14.6)
[2020-10-17 08:06] LABS: MEAN CORPUSCULAR HEMOGLOBIN 29.6 pg (28.0-32.0)
[2020-10-17 08:49] LABS: BG CARBOXYHEMOGLOBIN 0.6 % (0.5-1.5); BG FRACTION INSPIRED OXYGEN 30; BG HCO3 ACT 17.5 mmol/L (22.0-26.0); BG METHEMOGLOBIN 0.4 % (0.0-1.5); BG PCO2 31.8 mmHg (35.0-45.0); BG PH 7.359 (7.350-7.450); BG PO2 92.4 mmHg (75.0-100.0); BG SAMPLE SITE RIGHT RADIAL; BG TOTAL RESPIRATORY RATE 19 b/min; BG VENT MODE VENT - AC
[2020-10-17] MEDS: PANTOPRAZOLE SODIUM 40 MG/VIAL IV SCH (08:50)
[2020-10-17] MEDS: MEROPENEM 500MG in NORMAL SALINE 50ML IV SCH (08:50)
[2020-10-17] MEDS: BACITRACIN 15GM TUBE TOP SCH (08:51)
[2020-10-17] MEDS: SODIUM CHLORIDE 0.9% 1,000 ML IV SCH (08:51)
[2020-10-17] MEDS: INSULIN GLARGINE UD 100 UNITS/ML SYR SUBCUT SCH ×2 (10:38→21:34)
[2020-10-17] MEDS ORDERED: INSULIN LISPRO 100 UNITS/ML SUBCUT NR ×4 (10:45→18:45)
[2020-10-17] MEDS: AMIODARONE HCL 900 MG in DEXT 5% WATER 482 ML IV SCH (10:48)
[2020-10-17] MEDS ORDERED: INSULIN REGULAR (HUMULIN R) 300UNITS/3ML VIAL IV SCH (13:30)
[2020-10-17] MEDS ORDERED: TOTAL PARENTERAL NUTRITION 1,400 ML IV SCH (21:00)
[2020-10-17] MEDS: PHENYLEPHRINE 100 MG in DEXT 5% WATER 240 ML IV PRN (21:47)
[2020-10-18] VITALS (98 sets, daily range): BP systolic 84–185; BP diastolic 33–101
[2020-10-18] MEDS: INSULIN LISPRO 100 UNITS/ML SUBCUT SCH ×5 (01:00→23:56)
[2020-10-18] MEDS: IPRATROPIUM BROMIDE (0.02%) 0.5MG/2.5ML NEB HHN SCH ×4 (02:24→20:24)
[2020-10-18] MEDS: AMIODARONE HCL 900 MG in DEXT 5% WATER 482 ML IV SCH (04:52)
[2020-10-18] MEDS: BLOOD SUGAR DIAGNOSTIC STRIP TEST SCH ×5 (06:21→23:45)
[2020-10-18 06:41] LABS: BASOPHILS % 0.6 % (0.0-2.0); EOSINOPHILS % 0.6 % (0.0-5.0); HEMATOCRIT. 30.7 % (36.0-48.0); HEMOGLOBIN. 10.3 g/dL (12.0-16.0); LYMPHOCYTES % 12.6 % (20.0-50.0); MEAN CORPUSCULAR HEMOGLOBIN 27.7 pg (28.0-32.0); MEAN CORPUSCULAR VOLUME 82.8 fL (81.0-99.0); MEAN PLATELET VOLUME 8.7 fl (7.4-10.4); MONOCYTES % 6.9 % (2.0-8.0); NEUTROPHILS % 79.3 % (40.0-76.0); PLATELET 81 x1000/uL (130-400); RED BLOOD CELL COUNT 3.71 mill/uL (4.2-5.4); RED CELL DISTRIBUTION WIDTH 15.7 % (11.6-14.6)
[2020-10-18 06:47] LABS: PHOSPHORUS 1.8 mg/dL (2.5-4.9)
[2020-10-18 08:11] LABS: BG BASE EXCESS 0.7 mmol/L (-2.0-2.0); BG CARBOXYHEMOGLOBIN 0.3 % (0.5-1.5); BG DEOXYHEMOGLOBIN 2.8 % (0.0-5.0); BG HCO3 ACT 24.3 mmol/L (22.0-26.0); BG METHEMOGLOBIN 0.2 % (0.0-1.5); BG OXYGEN SATURATION 97.2 % (92.0-98.5); BG OXYHEMOGLOBIN 96.7 % (94.0-97.0); BG PCO2 35.5 mmHg (35.0-45.0); BG PH 7.454 (7.350-7.450); BG PO2 90.9 mmHg (75.0-100.0); BG SAMPLE SITE RIGHT RADIAL; BG TOTAL HEMOGLOBIN 11.3 g/dL (12.0-18.0); BG VENT MODE VENT - AC
[2020-10-18] MEDS: MEROPENEM 500MG in NORMAL SALINE 50ML IV SCH (08:46)
[2020-10-18] MEDS: BACITRACIN 15GM TUBE TOP SCH (08:46)
[2020-10-18] MEDS: PANTOPRAZOLE SODIUM 40 MG/VIAL IV SCH (08:46)
[2020-10-18] MEDS: ACETAMINOPHEN 500MG TABLET PO PRN ×3 (08:46→21:34)
[2020-10-18] MEDS: INSULIN GLARGINE UD 100 UNITS/ML SYR SUBCUT SCH ×2 (09:04→21:00)
[2020-10-18] MEDS: MAGNESIUM 1 G PREMIX 100 ML IV SCH (09:54)
[2020-10-18] MEDS ORDERED: INSULIN LISPRO 100 UNITS/ML SUBCUT SCH (12:30)
[2020-10-18] MEDS ORDERED: POTASSIUM PHOS,M-BASIC-D-BASIC 20 MMOL in SODIUM CHLORIDE 0.9% 250 ML IV SCH (14:00)
[2020-10-18] MEDS: PHENYLEPHRINE 100 MG in DEXT 5% WATER 240 ML IV PRN (14:58)
[2020-10-18] MEDS ORDERED: VANCOMYCIN 1250MG in DEXTROSE 5% WATER 250ML IV NR (18:00)
[2020-10-18] MEDS: TOTAL PARENTERAL NUTRITION 1,400 ML IV SCH (20:59)
[2020-10-18] MEDS: ACETAMINOPHEN 650MG SUPP PR PRN (21:20)
[2020-10-19] VITALS (100 sets, daily range): BP systolic 62–133; BP diastolic 38–70
[2020-10-19] MEDS: IPRATROPIUM BROMIDE (0.02%) 0.5MG/2.5ML NEB HHN SCH ×4 (01:55→20:48)
[2020-10-19] MEDS: INSULIN LISPRO 100 UNITS/ML SUBCUT SCH ×6 (06:12→23:51)
[2020-10-19] MEDS: BLOOD SUGAR DIAGNOSTIC STRIP TEST SCH ×3 (06:21→17:47)
[2020-10-19 07:33] LABS: BASOPHILS % 0.9 % (0.0-2.0); EOSINOPHILS % 0.8 % (0.0-5.0); HEMATOCRIT. 31.5 % (36.0-48.0); HEMOGLOBIN. 10.2 g/dL (12.0-16.0); LYMPHOCYTES % 10.5 % (20.0-50.0); MEAN CORPUSCULAR HEMOGLOBIN 27.3 pg (28.0-32.0); MEAN CORPUSCULAR VOLUME 84.1 fL (81.0-99.0); MEAN PLATELET VOLUME 9.4 fl (7.4-10.4); NEUTROPHILS % 82.8 % (40.0-76.0); PLATELET 78 x1000/uL (130-400); RED BLOOD CELL COUNT 3.74 mill/uL (4.2-5.4); RED CELL DISTRIBUTION WIDTH 16.1 % (11.6-14.6)
[2020-10-19 08:31] LABS: BG BASE EXCESS 0.1 mmol/L (-2.0-2.0); BG FRACTION INSPIRED OXYGEN 30; BG HCO3 ACT 22.8 mmol/L (22.0-26.0); BG PCO2 31.8 mmHg (35.0-45.0); BG PH 7.473 (7.350-7.450); BG PO2 75.4 mmHg (75.0-100.0); BG SAMPLE SITE RIGHT RADIAL; BG TOTAL RESPIRATORY RATE 24 b/min; BG VENT MODE VENT - AC
[2020-10-19] MEDS: PANTOPRAZOLE SODIUM 40 MG/VIAL IV SCH (09:20)
[2020-10-19] MEDS: BACITRACIN 15GM TUBE TOP SCH (09:20)
[2020-10-19] MEDS: MEROPENEM 500MG in NORMAL SALINE 50ML IV SCH (09:21)
[2020-10-19] MEDS ORDERED: INSULIN GLARGINE UD 100 UNITS/ML SYR SUBCUT SCH (10:00)
[2020-10-19] MEDS: AMIODARONE HCL 900 MG in DEXT 5% WATER 482 ML IV SCH (10:16)
[2020-10-19] MEDS: PHENYLEPHRINE 100 MG in DEXT 5% WATER 240 ML IV PRN (10:30)
[2020-10-19] MEDS: ACETAMINOPHEN 500MG TABLET PO PRN ×2 (11:12→20:52)
[2020-10-19 13:48] LABS: INR 1.1
[2020-10-19] MEDS: FAT EMULSIONS 250 ML IV SCH (20:53)
[2020-10-19] MEDS: TOTAL PARENTERAL NUTRITION 1,400 ML IV SCH (20:54)
[2020-10-19] MEDS: INSULIN GLARGINE UD 100 UNITS/ML SYR SUBCUT SCH (22:37)
[2020-10-20] VITALS (116 sets, daily range): BP systolic 48–199; BP diastolic 30–124
[2020-10-20] MEDS: FAT EMULSIONS 250 ML IV SCH (02:02)
[2020-10-20] MEDS: INSULIN LISPRO 100 UNITS/ML SUBCUT SCH ×4 (06:00→18:21)
[2020-10-20] MEDS ORDERED: LIDOCAINE HCL/EPINEPHRINE 1%-EPI 1:100,000 20 ML VIAL ONE (06:39)
[2020-10-20] MEDS: PHENYLEPHRINE 100 MG in DEXT 5% WATER 240 ML IV PRN ×2 (06:47→15:00)
[2020-10-20] MEDS: BLOOD SUGAR DIAGNOSTIC STRIP TEST SCH ×4 (06:55→18:10)
[2020-10-20] MEDS: IPRATROPIUM BROMIDE (0.02%) 0.5MG/2.5ML NEB HHN SCH ×3 (07:50→21:19)
[2020-10-20] MEDS: MEROPENEM 500MG in NORMAL SALINE 50ML IV SCH (08:46)
[2020-10-20] MEDS: BACITRACIN 15GM TUBE TOP SCH (08:46)
[2020-10-20] MEDS: MAGNESIUM 1 G PREMIX 100 ML IV SCH (08:47)
[2020-10-20] MEDS: PANTOPRAZOLE SODIUM 40 MG/VIAL IV SCH (08:47)
[2020-10-20] MEDS: PHYTONADIONE 10MG/ML AMP SUBCUT SCH (08:47)
[2020-10-20] MEDS: ACETAMINOPHEN 500MG TABLET PO PRN ×2 (09:18→15:54)
[2020-10-20 09:27] LABS: BG BASE EXCESS 0.8 mmol/L (-2.0-2.0); BG CARBOXYHEMOGLOBIN 0.5 % (0.5-1.5); BG DEOXYHEMOGLOBIN 4.6 % (0.0-5.0); BG FRACTION INSPIRED OXYGEN 30; BG HCO3 ACT 22.9 mmol/L (22.0-26.0); BG METHEMOGLOBIN 0.1 % (0.0-1.5); BG OXYGEN SATURATION 95.4 % (92.0-98.5); BG OXYHEMOGLOBIN 94.8 % (94.0-97.0); BG PCO2 28.6 mmHg (35.0-45.0); BG PH 7.521 (7.350-7.450); BG PO2 71.7 mmHg (75.0-100.0); BG SAMPLE SITE LEFT RADIAL; BG TOTAL HEMOGLOBIN 11.3 g/dL (12.0-18.0); BG VENT MODE VENT - AC
[2020-10-20 10:00] LABS: BASOPHILS % 0.5 % (0.0-2.0); EOSINOPHILS % 0.4 % (0.0-5.0); HEMATOCRIT. 34.9 % (36.0-48.0); HEMOGLOBIN. 11.7 g/dL (12.0-16.0); LYMPHOCYTES % 11.5 % (20.0-50.0); MEAN CORPUSCULAR HEMOGLOBIN 28.1 pg (28.0-32.0); MEAN CORPUSCULAR VOLUME 83.9 fL (81.0-99.0); MEAN PLATELET VOLUME 9.3 fl (7.4-10.4); MONOCYTES % 7.9 % (2.0-8.0); NEUTROPHILS % 79.7 % (40.0-76.0); PLATELET 144 x1000/uL (130-400); RED BLOOD CELL COUNT 4.15 mill/uL (4.2-5.4); RED CELL DISTRIBUTION WIDTH 16.3 % (11.6-14.6)
[2020-10-20] MEDS: INSULIN GLARGINE UD 100 UNITS/ML SYR SUBCUT SCH (10:11)
[2020-10-20] MEDS ORDERED: VANCOMYCIN 500 MG PREMIX 100 ML IV NR (13:00)
[2020-10-20] MEDS ORDERED: ACETAMINOPHEN 325MG TABLET PO PRN (16:30)
[2020-10-20] MEDS ORDERED: CHLORHEXIDINE GLUCONATE 4% EXTERNAL USE TOP SCH ×2 (16:30→21:00)
[2020-10-20] MEDS ORDERED: BISACODYL 10MG SUPP PR PRN (21:00)
[2020-10-20] MEDS ORDERED: ALLOPURINOL 300 MG TABLET PO SCH (21:00)
[2020-10-20] MEDS ORDERED: DOCUSATE SODIUM 100MG CAPSULE PO SCH (21:00)
[2020-10-20] MEDS ORDERED: DIPHENHYDRAMINE 25MG CAPSULE PO PRN (21:00)
[2020-10-20] MEDS ORDERED: ASCORBIC ACID 500 MG TABLET PO SCH (21:00)
[2020-10-20] MEDS: TOTAL PARENTERAL NUTRITION 1,400 ML IV SCH (21:56)
[2020-10-21] VITALS (108 sets, daily range): BP systolic 59–179; BP diastolic 32–102
[2020-10-21] MEDS: MICAFUNGIN 100 MG in SODIUM CHLORIDE 0.9% 100 ML IV SCH ×2 (00:08→23:07)
[2020-10-21] MEDS: INSULIN LISPRO 100 UNITS/ML SUBCUT SCH ×4 (00:26→17:37)
[2020-10-21] MEDS: IPRATROPIUM BROMIDE (0.02%) 0.5MG/2.5ML NEB HHN SCH ×4 (00:30→19:50)
[2020-10-21] MEDS: BLOOD SUGAR DIAGNOSTIC STRIP TEST SCH ×4 (00:32→17:37)
[2020-10-21 05:56] LABS: BASOPHILS % 0.3 % (0.0-2.0); EOSINOPHILS % 0.3 % (0.0-5.0); HEMATOCRIT. 31.1 % (36.0-48.0); HEMOGLOBIN. 10.2 g/dL (12.0-16.0); LYMPHOCYTES % 12.9 % (20.0-50.0); MEAN CORPUSCULAR HEMOGLOBIN 27.6 pg (28.0-32.0); MEAN CORPUSCULAR VOLUME 83.7 fL (81.0-99.0); MEAN PLATELET VOLUME 9.3 fl (7.4-10.4); MONOCYTES % 11.7 % (2.0-8.0); NEUTROPHILS % 74.8 % (40.0-76.0); PLATELET 173 x1000/uL (130-400); RED BLOOD CELL COUNT 3.72 mill/uL (4.2-5.4); RED CELL DISTRIBUTION WIDTH 16.4 % (11.6-14.6)
[2020-10-21] MEDS: PHENYLEPHRINE 100 MG in DEXT 5% WATER 240 ML IV PRN ×3 (07:00→23:30)
[2020-10-21] MEDS: BACITRACIN 15GM TUBE TOP SCH (08:55)
[2020-10-21] MEDS: MEROPENEM 500MG in NORMAL SALINE 50ML IV SCH (08:55)
[2020-10-21] MEDS: PANTOPRAZOLE SODIUM 40 MG/VIAL IV SCH (08:55)
[2020-10-21 09:17] LABS: BG BASE EXCESS -0.6 mmol/L (-2.0-2.0); BG CARBOXYHEMOGLOBIN 0.3 % (0.5-1.5); BG DEOXYHEMOGLOBIN 6.5 % (0.0-5.0); BG FRACTION INSPIRED OXYGEN 30; BG HCO3 ACT 21.8 mmol/L (22.0-26.0); BG METHEMOGLOBIN 0.3 % (0.0-1.5); BG OXYGEN SATURATION 93.5 % (92.0-98.5); BG OXYHEMOGLOBIN 92.9 % (94.0-97.0); BG PCO2 28.8 mmHg (35.0-45.0); BG PH 7.497 (7.350-7.450); BG PO2 67.3 mmHg (75.0-100.0); BG SAMPLE SITE RIGHT RADIAL; BG TOTAL HEMOGLOBIN 11.1 g/dL (12.0-18.0); BG VENT MODE VENT - AC
[2020-10-21] MEDS: ACETAMINOPHEN 500MG TABLET PO PRN (12:08)
[2020-10-21] MEDS ORDERED: IOHEXOL-350 100 ML BOTTLE ONE (13:52)
[2020-10-21] MEDS: NOREPINEPHRINE 32 MG in DEXT 5% WATER 218 ML IV PRN (14:48)
[2020-10-21] MEDS ORDERED: VANCOMYCIN 500 MG PREMIX 100 ML IV SCH (17:00)
[2020-10-21] MEDS: FUROSEMIDE 40MG/4ML VIAL IVP SCH (17:31)
[2020-10-21] MEDS ORDERED: VANCOMYCIN HCL 1000 MG/20 ML ORAL PO SCH (18:00)
[2020-10-21] MEDS: VANCOMYCIN HCL 1000 MG/20 ML ORAL NG SCH (23:06)
[2020-10-21] MEDS: FAT EMULSIONS 250 ML IV SCH (23:07)
[2020-10-21] MEDS: TOTAL PARENTERAL NUTRITION 1,400 ML IV SCH (23:08)
[2020-10-21] MEDS: INSULIN GLARGINE UD 100 UNITS/ML SYR SUBCUT SCH (23:09)
[2020-10-22] VITALS (116 sets, daily range): BP systolic 58–163; BP diastolic 40–95
[2020-10-22] MEDS: VANCOMYCIN HCL 1000 MG/20 ML ORAL NG SCH ×4 (00:30→17:32)
[2020-10-22] MEDS: IPRATROPIUM BROMIDE (0.02%) 0.5MG/2.5ML NEB HHN SCH ×4 (01:54→20:30)
[2020-10-22] MEDS: FAT EMULSIONS 250 ML IV SCH ×2 (03:44→20:38)
[2020-10-22] MEDS: INSULIN LISPRO 100 UNITS/ML SUBCUT SCH ×4 (03:45→18:11)
[2020-10-22] MEDS: FENTANYL CITRATE/PF 2,500 MCG in SODIUM CHLORIDE 0.9% 200 ML IV PRN (03:46)
[2020-10-22] MEDS: BLOOD SUGAR DIAGNOSTIC STRIP TEST SCH ×4 (06:00→18:18)
[2020-10-22 06:16] LABS: BASOPHILS % 0.5 % (0.0-2.0); EOSINOPHILS % 0.3 % (0.0-5.0); HEMATOCRIT. 29.3 % (36.0-48.0); HEMOGLOBIN. 10.3 g/dL (12.0-16.0); LYMPHOCYTES % 14.4 % (20.0-50.0); MEAN CORPUSCULAR HEMOGLOBIN 29.1 pg (28.0-32.0); MEAN CORPUSCULAR VOLUME 82.8 fL (81.0-99.0); MEAN PLATELET VOLUME 9.1 fl (7.4-10.4); MONOCYTES % 10.7 % (2.0-8.0); NEUTROPHILS % 74.1 % (40.0-76.0); PLATELET 185 x1000/uL (130-400); RED BLOOD CELL COUNT 3.53 mill/uL (4.2-5.4); RED CELL DISTRIBUTION WIDTH 16.5 % (11.6-14.6)
[2020-10-22] MEDS: FUROSEMIDE 40MG/4ML VIAL IVP SCH ×2 (06:46→17:32)
[2020-10-22] MEDS: MAGNESIUM 1 G PREMIX 100 ML IV SCH (08:22)
[2020-10-22] MEDS: MEROPENEM 500MG in NORMAL SALINE 50ML IV SCH (08:22)
[2020-10-22] MEDS: PANTOPRAZOLE SODIUM 40 MG/VIAL IV SCH (08:22)
[2020-10-22] MEDS: BACITRACIN 15GM TUBE TOP SCH (08:22)
[2020-10-22] MEDS: ACETAMINOPHEN 500MG TABLET PO PRN (08:22)
[2020-10-22] MEDS: INSULIN GLARGINE UD 100 UNITS/ML SYR SUBCUT SCH ×2 (10:31→22:33)
[2020-10-22 11:17] LABS: BG BASE EXCESS 1.3 mmol/L (-2.0-2.0); BG CARBOXYHEMOGLOBIN 0.3 % (0.5-1.5); BG DEOXYHEMOGLOBIN 6.3 % (0.0-5.0); BG FRACTION INSPIRED OXYGEN 40; BG METHEMOGLOBIN 0.1 % (0.0-1.5); BG OXYGEN SATURATION 93.7 % (92.0-98.5); BG OXYHEMOGLOBIN 93.3 % (94.0-97.0); BG PCO2 36.2 mmHg (35.0-45.0); BG PH 7.457 (7.350-7.450); BG PO2 68.5 mmHg (75.0-100.0); BG SAMPLE SITE RIGHT RADIAL; BG TOTAL HEMOGLOBIN 10.7 g/dL (12.0-18.0); BG VENT MODE VENT - AC
[2020-10-22] MEDS: PHENYLEPHRINE 100 MG in DEXT 5% WATER 240 ML IV PRN ×2 (13:33→20:37)
[2020-10-22] MEDS: TOTAL PARENTERAL NUTRITION 1,400 ML IV SCH (20:40)
[2020-10-22] MEDS: MICAFUNGIN 100 MG in SODIUM CHLORIDE 0.9% 100 ML IV SCH (23:08)
[2020-10-23] VITALS (103 sets, daily range): BP systolic 75–143; BP diastolic 49–75
[2020-10-23] MEDS: BLOOD SUGAR DIAGNOSTIC STRIP TEST SCH ×5 (00:13→23:23)
[2020-10-23] MEDS: VANCOMYCIN HCL 1000 MG/20 ML ORAL NG SCH ×5 (00:16→23:29)
[2020-10-23] MEDS: INSULIN LISPRO 100 UNITS/ML SUBCUT SCH ×7 (00:17→23:31)
[2020-10-23] MEDS: IPRATROPIUM BROMIDE (0.02%) 0.5MG/2.5ML NEB HHN SCH ×4 (00:39→20:17)
[2020-10-23] MEDS: PHENYLEPHRINE 100 MG in DEXT 5% WATER 240 ML IV PRN ×3 (05:18→20:13)
[2020-10-23] MEDS: FUROSEMIDE 40MG/4ML VIAL IVP SCH ×2 (06:05→18:16)
[2020-10-23 06:37] LABS: BASOPHILS % 0.4 % (0.0-2.0); EOSINOPHILS % 1.6 % (0.0-5.0); HEMATOCRIT. 27.2 % (36.0-48.0); HEMOGLOBIN. 8.7 g/dL (12.0-16.0); LYMPHOCYTES % 12.2 % (20.0-50.0); MEAN CORPUSCULAR VOLUME 84.3 fL (81.0-99.0); MEAN PLATELET VOLUME 9.3 fl (7.4-10.4); MONOCYTES % 10.6 % (2.0-8.0); NEUTROPHILS % 75.2 % (40.0-76.0); PLATELET 171 x1000/uL (130-400); RED BLOOD CELL COUNT 3.23 mill/uL (4.2-5.4); RED CELL DISTRIBUTION WIDTH 16.6 % (11.6-14.6)
[2020-10-23] MEDS: PANTOPRAZOLE SODIUM 40 MG/VIAL IV SCH (08:47)
[2020-10-23] MEDS: BACITRACIN 15GM TUBE TOP SCH (08:47)
[2020-10-23] MEDS: MEROPENEM 500MG in NORMAL SALINE 50ML IV SCH (08:47)
[2020-10-23] MEDS: INSULIN GLARGINE UD 100 UNITS/ML SYR SUBCUT SCH ×2 (08:48→21:13)
[2020-10-23] MEDS ORDERED: ROCURONIUM BROMIDE 10MG/ML VIAL 5ML IV ONE (11:14)
[2020-10-23] MEDS ORDERED: MIDAZOLAM HCL 2 MG/2 ML VIAL ONE (11:14)
[2020-10-23] MEDS ORDERED: CEFAZOLIN SODIUM 1000MG/VIAL ONE (11:23)
[2020-10-23] MEDS ORDERED: VASOPRESSIN 20 UNIT in SODIUM CHLORIDE 0.9% 99 ML IV PRN (15:30)
[2020-10-23] MEDS: VASOPRESSIN 20 UNIT in SODIUM CHLORIDE 0.9% 99 ML IV PRN (15:53)
[2020-10-23 16:10] LABS: BG BASE EXCESS -2.3 mmol/L (-2.0-2.0); BG CARBOXYHEMOGLOBIN 0.3 % (0.5-1.5); BG DEOXYHEMOGLOBIN 7.7 % (0.0-5.0); BG HCO3 ACT 26.4 mmol/L (22.0-26.0); BG METHEMOGLOBIN 0.3 % (0.0-1.5); BG OXYGEN SATURATION 92.3 % (92.0-98.5); BG OXYHEMOGLOBIN 91.7 % (94.0-97.0); BG PCO2 69.5 mmHg (35.0-45.0); BG PH 7.197 (7.350-7.450); BG PO2 74.7 mmHg (75.0-100.0); BG SAMPLE SITE RIGHT RADIAL; BG TOTAL HEMOGLOBIN 9.2 g/dL (12.0-18.0); BG VENT MODE VENT - AC
[2020-10-23 18:03] LABS: BG BASE EXCESS 3.4 mmol/L (-2.0-2.0); BG CARBOXYHEMOGLOBIN 0.3 % (0.5-1.5); BG DEOXYHEMOGLOBIN 4.9 % (0.0-5.0); BG HCO3 ACT 29.7 mmol/L (22.0-26.0); BG OXYGEN SATURATION 95.1 % (92.0-98.5); BG OXYHEMOGLOBIN 94.8 % (94.0-97.0); BG PCO2 54.7 mmHg (35.0-45.0); BG PH 7.352 (7.350-7.450); BG PO2 75.3 mmHg (75.0-100.0); BG SAMPLE SITE RIGHT RADIAL; BG VENT MODE VENT - AC
[2020-10-23] MEDS: FENTANYL CITRATE/PF 2,500 MCG in SODIUM CHLORIDE 0.9% 200 ML IV PRN (19:22)
[2020-10-23] MEDS ORDERED: FENTANYL CITRATE/PF 2,500 MCG in SODIUM CHLORIDE 0.9% 200 ML IV PRN (19:45)
[2020-10-23] MEDS ORDERED: FENTANYL CITRATE 2,500 MCG in SODIUM CHLORIDE 0.9% 200 ML IV PRN (19:45)
[2020-10-23] MEDS: TOTAL PARENTERAL NUTRITION 1,400 ML IV SCH (21:13)
[2020-10-23] MEDS: MICAFUNGIN 100 MG in SODIUM CHLORIDE 0.9% 100 ML IV SCH (23:29)
[2020-10-24] VITALS (101 sets, daily range): BP systolic 71–171; BP diastolic 37–96
[2020-10-24] MEDS: IPRATROPIUM BROMIDE (0.02%) 0.5MG/2.5ML NEB HHN SCH ×4 (00:07→21:18)
[2020-10-24] MEDS: PHENYLEPHRINE 100 MG in DEXT 5% WATER 240 ML IV PRN ×3 (04:10→21:31)
[2020-10-24] MEDS: FUROSEMIDE 40MG/4ML VIAL IVP SCH ×2 (05:20→18:00)
[2020-10-24] MEDS: VANCOMYCIN HCL 1000 MG/20 ML ORAL NG SCH ×4 (05:22→23:48)
[2020-10-24] MEDS: INSULIN LISPRO 100 UNITS/ML SUBCUT SCH ×7 (06:00→23:45)
[2020-10-24] MEDS: BLOOD SUGAR DIAGNOSTIC STRIP TEST SCH ×4 (06:20→23:46)
[2020-10-24 06:24] LABS: BASOPHILS % 0.5 % (0.0-2.0); EOSINOPHILS % 1.9 % (0.0-5.0); HEMATOCRIT. 26.2 % (36.0-48.0); HEMOGLOBIN. 8.4 g/dL (12.0-16.0); LYMPHOCYTES % 12.5 % (20.0-50.0); MEAN CORPUSCULAR VOLUME 84.6 fL (81.0-99.0); MEAN PLATELET VOLUME 8.7 fl (7.4-10.4); MONOCYTES % 12.1 % (2.0-8.0); PLATELET 196 x1000/uL (130-400); RED BLOOD CELL COUNT 3.09 mill/uL (4.2-5.4); RED CELL DISTRIBUTION WIDTH 17.2 % (11.6-14.6)
[2020-10-24] MEDS: BACITRACIN 15GM TUBE TOP SCH (08:56)
[2020-10-24] MEDS: PANTOPRAZOLE SODIUM 40 MG/VIAL IV SCH (08:56)
[2020-10-24] MEDS: MAGNESIUM 1 G PREMIX 100 ML IV SCH (08:56)
[2020-10-24] MEDS: INSULIN GLARGINE UD 100 UNITS/ML SYR SUBCUT SCH ×2 (10:14→22:19)
[2020-10-24 11:29] LABS: BG BASE EXCESS 1.6 mmol/L (-2.0-2.0); BG CARBOXYHEMOGLOBIN 0.3 % (0.5-1.5); BG DEOXYHEMOGLOBIN 4.9 % (0.0-5.0); BG FRACTION INSPIRED OXYGEN 40; BG HCO3 ACT 27.7 mmol/L (22.0-26.0); BG METHEMOGLOBIN 0.1 % (0.0-1.5); BG OXYGEN SATURATION 95.1 % (92.0-98.5); BG OXYHEMOGLOBIN 94.7 % (94.0-97.0); BG PCO2 51.3 mmHg (35.0-45.0); BG PO2 76.8 mmHg (75.0-100.0); BG SAMPLE SITE RIGHT RADIAL; BG TOTAL HEMOGLOBIN 8.9 g/dL (12.0-18.0); BG VENT MODE VENT - AC
[2020-10-24 11:33] LABS: PHOSPHORUS 3.8 mg/dL (2.5-4.9)
[2020-10-24] MEDS: VASOPRESSIN 20 UNIT in SODIUM CHLORIDE 0.9% 99 ML IV PRN (19:38)
[2020-10-24] MEDS: TOTAL PARENTERAL NUTRITION 1,400 ML IV SCH (21:07)
[2020-10-24] MEDS: MICAFUNGIN 100 MG in SODIUM CHLORIDE 0.9% 100 ML IV SCH (22:19)
[2020-10-25] VITALS (99 sets, daily range): BP systolic 92–182; BP diastolic 42–152
[2020-10-25] MEDS: IPRATROPIUM BROMIDE (0.02%) 0.5MG/2.5ML NEB HHN SCH ×4 (01:20→19:51)
[2020-10-25] MEDS: PHENYLEPHRINE 100 MG in DEXT 5% WATER 240 ML IV PRN ×3 (04:30→23:47)
[2020-10-25] MEDS: ACETAMINOPHEN 500MG TABLET PO PRN ×2 (05:49→19:35)
[2020-10-25] MEDS: FUROSEMIDE 40MG/4ML VIAL IVP SCH ×2 (05:49→18:04)
[2020-10-25] MEDS: VANCOMYCIN HCL 1000 MG/20 ML ORAL NG SCH ×4 (05:50→23:30)
[2020-10-25 05:55] LABS: BASOPHILS % 0.2 % (0.0-2.0); EOSINOPHILS % 0.7 % (0.0-5.0); HEMATOCRIT. 23.5 % (36.0-48.0); HEMOGLOBIN. 7.4 g/dL (12.0-16.0); LYMPHOCYTES % 11.1 % (20.0-50.0); MEAN CORPUSCULAR HEMOGLOBIN 27.2 pg (28.0-32.0); MEAN PLATELET VOLUME 8.5 fl (7.4-10.4); MONOCYTES % 12.6 % (2.0-8.0); NEUTROPHILS % 75.4 % (40.0-76.0); PLATELET 157 x1000/uL (130-400); RED BLOOD CELL COUNT 2.74 mill/uL (4.2-5.4); RED CELL DISTRIBUTION WIDTH 17.3 % (11.6-14.6)
[2020-10-25] MEDS: INSULIN LISPRO 100 UNITS/ML SUBCUT SCH ×6 (06:07→17:55)
[2020-10-25] MEDS: BLOOD SUGAR DIAGNOSTIC STRIP TEST SCH ×3 (06:08→17:55)
[2020-10-25] MEDS: BACITRACIN 15GM TUBE TOP SCH (08:50)
[2020-10-25] MEDS: PANTOPRAZOLE SODIUM 40 MG/VIAL IV SCH (08:50)
[2020-10-25] MEDS: INSULIN GLARGINE UD 100 UNITS/ML SYR SUBCUT SCH ×2 (10:33→22:48)
[2020-10-25] MEDS: EPOETIN ALFA-EPBX 4,000 UNIT/ML VIAL SUBCUT SCH (11:07)
[2020-10-25] MEDS: TOTAL PARENTERAL NUTRITION 1,400 ML IV SCH (20:57)
[2020-10-25] MEDS: MICAFUNGIN 100 MG in SODIUM CHLORIDE 0.9% 100 ML IV SCH (23:30)
[2020-10-26] VITALS (94 sets, daily range): BP systolic 87–141; BP diastolic 33–78
[2020-10-26] MEDS: BLOOD SUGAR DIAGNOSTIC STRIP TEST SCH ×4 (00:26→18:07)
[2020-10-26 01:48] LABS: HEMATOCRIT 28.8 % (36.0-48.0); HEMOGLOBIN 9.1 g/dL (12.0-16.0); MEAN CORPUSCULAR HEMOGLOBIN 27.5 pg (28.0-32.0); PLATELET 159 x1000/uL (130-400); RED CELL DISTRIBUTION WIDTH 17.1 % (11.6-14.6)
[2020-10-26 02:08] LABS: INR 1.2; PROTHROMBIN TIME 12.7 sec (9.6-11.0)
[2020-10-26] MEDS: IPRATROPIUM BROMIDE (0.02%) 0.5MG/2.5ML NEB HHN SCH ×4 (03:57→20:24)
[2020-10-26] MEDS: INSULIN LISPRO 100 UNITS/ML SUBCUT SCH ×5 (06:00→18:00)
[2020-10-26 06:14] LABS: BASOPHILS % 0.3 % (0.0-2.0); EOSINOPHILS % 1.2 % (0.0-5.0); HEMATOCRIT. 29.7 % (36.0-48.0); HEMOGLOBIN. 9.5 g/dL (12.0-16.0); LYMPHOCYTES % 12.6 % (20.0-50.0); MEAN CORPUSCULAR HEMOGLOBIN 27.7 pg (28.0-32.0); MEAN CORPUSCULAR VOLUME 86.6 fL (81.0-99.0); MEAN PLATELET VOLUME 8.2 fl (7.4-10.4); MONOCYTES % 11.2 % (2.0-8.0); NEUTROPHILS % 74.7 % (40.0-76.0); PLATELET 159 x1000/uL (130-400); RED BLOOD CELL COUNT 3.43 mill/uL (4.2-5.4); RED CELL DISTRIBUTION WIDTH 17.3 % (11.6-14.6)
[2020-10-26] MEDS: FUROSEMIDE 40MG/4ML VIAL IVP SCH ×2 (06:29→17:35)
[2020-10-26] MEDS: VANCOMYCIN HCL 1000 MG/20 ML ORAL NG SCH ×3 (06:29→17:36)
[2020-10-26 06:31] LABS: PHOSPHORUS 2.5 mg/dL (2.5-4.9)
[2020-10-26] MEDS ORDERED: DIATR MEGLU/DIATRIZOATE SOLN 30ML PO SCH (08:00)
[2020-10-26 08:36] LABS: BG BASE EXCESS 1.1 mmol/L (-2.0-2.0); BG CARBOXYHEMOGLOBIN 0.2 % (0.5-1.5); BG DEOXYHEMOGLOBIN 3.7 % (0.0-5.0); BG FRACTION INSPIRED OXYGEN 40; BG HCO3 ACT 27.2 mmol/L (22.0-26.0); BG METHEMOGLOBIN 0.1 % (0.0-1.5); BG OXYGEN SATURATION 96.3 % (92.0-98.5); BG PCO2 50.6 mmHg (35.0-45.0); BG PH 7.349 (7.350-7.450); BG PO2 83.6 mmHg (75.0-100.0); BG SAMPLE SITE RIGHT RADIAL; BG TOTAL HEMOGLOBIN 10.1 g/dL (12.0-18.0); BG TOTAL RESPIRATORY RATE 18 b/min; BG VENT MODE VENT - AC
[2020-10-26] MEDS ORDERED: NALOXONE HCL 0.4MG/ML VIAL IV PRN (10:00)
[2020-10-26] MEDS: PANTOPRAZOLE SODIUM 40 MG/VIAL IV SCH (10:58)
[2020-10-26] MEDS: INSULIN GLARGINE UD 100 UNITS/ML SYR SUBCUT SCH ×2 (11:00→22:31)
[2020-10-26] MEDS: MORPHINE SULFATE 4 MG/ML CPJ (NOT FOR IM USE) IV PRN ×2 (11:01→17:36)
[2020-10-26] MEDS: PHENYLEPHRINE 100 MG in DEXT 5% WATER 240 ML IV PRN (12:49)
[2020-10-26] MEDS: BACITRACIN 15GM TUBE TOP SCH (12:52)
[2020-10-26] MEDS: FAT EMULSIONS 250 ML IV SCH (21:05)
[2020-10-26] MEDS: TOTAL PARENTERAL NUTRITION 1,400 ML IV SCH (21:05)
[2020-10-27] VITALS (95 sets, daily range): BP systolic 41–158; BP diastolic 29–84
[2020-10-27] MEDS: VANCOMYCIN HCL 1000 MG/20 ML ORAL NG SCH (00:21)
[2020-10-27] MEDS: MORPHINE SULFATE 4 MG/ML CPJ (NOT FOR IM USE) IV PRN ×3 (00:24→20:51)
[2020-10-27] MEDS: BLOOD SUGAR DIAGNOSTIC STRIP TEST SCH ×4 (00:24→17:45)
[2020-10-27] MEDS: INSULIN LISPRO 100 UNITS/ML SUBCUT SCH ×2 (00:40→06:00)
[2020-10-27] MEDS: IPRATROPIUM BROMIDE (0.02%) 0.5MG/2.5ML NEB HHN SCH ×4 (01:56→20:12)
[2020-10-27] MEDS: FUROSEMIDE 40MG/4ML VIAL IVP SCH ×2 (06:39→17:22)
[2020-10-27] MEDS: PHENYLEPHRINE 100 MG in DEXT 5% WATER 240 ML IV PRN (06:40)
[2020-10-27 09:15] LABS: HEMATOCRIT. 28.1 % (36.0-48.0); HEMOGLOBIN. 8.8 g/dL (12.0-16.0); MEAN CORPUSCULAR HEMOGLOBIN 27.4 pg (28.0-32.0); MEAN CORPUSCULAR VOLUME 86.9 fL (81.0-99.0); MEAN PLATELET VOLUME 8.2 fl (7.4-10.4); RED BLOOD CELL COUNT 3.23 mill/uL (4.2-5.4); RED CELL DISTRIBUTION WIDTH 17.5 % (11.6-14.6)
[2020-10-27 09:17] LABS: PLATELET 139 x1000/uL (130-400)
[2020-10-27 09:20] LABS: BG CARBOXYHEMOGLOBIN 0.3 % (0.5-1.5); BG DEOXYHEMOGLOBIN 2.9 % (0.0-5.0); BG FRACTION INSPIRED OXYGEN 40; BG HCO3 ACT 27.9 mmol/L (22.0-26.0); BG METHEMOGLOBIN 0.1 % (0.0-1.5); BG OXYGEN SATURATION 97.1 % (92.0-98.5); BG OXYHEMOGLOBIN 96.7 % (94.0-97.0); BG PCO2 44.2 mmHg (35.0-45.0); BG PH 7.418 (7.350-7.450); BG SAMPLE SITE RIGHT RADIAL; BG TOTAL RESPIRATORY RATE 21 b/min; BG VENT MODE VENT - AC
[2020-10-27 09:23] LABS: INR 1.2; PROTHROMBIN TIME 13.2 sec (9.6-11.0)
[2020-10-27] MEDS: INSULIN GLARGINE UD 100 UNITS/ML SYR SUBCUT SCH ×2 (09:47→22:45)
[2020-10-27] MEDS: PHYTONADIONE 10MG/ML AMP SUBCUT SCH (09:47)
[2020-10-27] MEDS: PANTOPRAZOLE SODIUM 40 MG/VIAL IV SCH (09:47)
[2020-10-27] MEDS: BACITRACIN 15GM TUBE TOP SCH (09:48)
[2020-10-27] MEDS ORDERED: LIDOCAINE HCL 1% 20ML VIAL (Pyxis) INJ ONE (10:26)
[2020-10-27] MEDS ORDERED: SODIUM BICARBONATE 4% (2.4MEQ) 5ML VIAL IV ONE (10:27)
[2020-10-27 11:31] LABS: PLATELET ESTIMATE NORMAL
[2020-10-27] MEDS: ACETAMINOPHEN 500MG TABLET PO PRN ×2 (13:07→20:51)
[2020-10-27] MEDS: TOTAL PARENTERAL NUTRITION 1,400 ML IV SCH (20:50)
[2020-10-27] MEDS: EPOETIN ALFA-EPBX 4,000 UNIT/ML VIAL SUBCUT SCH (22:44)
[2020-10-28] VITALS (98 sets, daily range): BP systolic 78–156; BP diastolic 27–100
[2020-10-28] MEDS: VANCOMYCIN HCL 1000 MG/20 ML ORAL NG SCH ×5 (00:50→18:39)
[2020-10-28] MEDS: BLOOD SUGAR DIAGNOSTIC STRIP TEST SCH ×4 (00:53→17:56)
[2020-10-28] MEDS: INSULIN LISPRO 100 UNITS/ML SUBCUT SCH ×4 (00:53→18:00)
[2020-10-28] MEDS: IPRATROPIUM BROMIDE (0.02%) 0.5MG/2.5ML NEB HHN SCH ×4 (04:23→20:51)
[2020-10-28] MEDS: FUROSEMIDE 40MG/4ML VIAL IVP SCH ×2 (05:49→17:57)
[2020-10-28 06:23] LABS: HEMATOCRIT. 28.5 % (36.0-48.0); HEMOGLOBIN. 9.1 g/dL (12.0-16.0); MEAN CORPUSCULAR HEMOGLOBIN 27.5 pg (28.0-32.0); MEAN CORPUSCULAR VOLUME 86.3 fL (81.0-99.0); MEAN PLATELET VOLUME 8.4 fl (7.4-10.4); PLATELET 147 x1000/uL (130-400); RED CELL DISTRIBUTION WIDTH 17.5 % (11.6-14.6)
[2020-10-28] MEDS: INSULIN GLARGINE UD 100 UNITS/ML SYR SUBCUT SCH (09:31)
[2020-10-28] MEDS: BACITRACIN 15GM TUBE TOP SCH (09:32)
[2020-10-28] MEDS: PANTOPRAZOLE SODIUM 40 MG/VIAL IV SCH (09:35)
[2020-10-28 16:53] LABS: PLATELET ESTIMATE NORMAL
[2020-10-28] MEDS: MORPHINE SULFATE 4 MG/ML CPJ (NOT FOR IM USE) IV PRN (18:39)
[2020-10-28] MEDS: TOTAL PARENTERAL NUTRITION 1,400 ML IV SCH (21:13)
[2020-10-29] VITALS (90 sets, daily range): BP systolic 73–144; BP diastolic 30–86
[2020-10-29] MEDS: BLOOD SUGAR DIAGNOSTIC STRIP TEST SCH ×5 (00:01→23:30)
[2020-10-29] MEDS: VANCOMYCIN HCL 1000 MG/20 ML ORAL NG SCH ×5 (00:09→23:58)
[2020-10-29] MEDS: IPRATROPIUM BROMIDE (0.02%) 0.5MG/2.5ML NEB HHN SCH ×4 (01:05→20:48)
[2020-10-29] MEDS: INSULIN LISPRO 100 UNITS/ML SUBCUT SCH ×5 (06:00→23:57)
[2020-10-29 06:06] LABS: HEMATOCRIT. 26.6 % (36.0-48.0); HEMOGLOBIN. 8.8 g/dL (12.0-16.0); MEAN CORPUSCULAR HEMOGLOBIN 28.1 pg (28.0-32.0); MEAN CORPUSCULAR VOLUME 85.1 fL (81.0-99.0); MEAN PLATELET VOLUME 8.4 fl (7.4-10.4); PLATELET 119 x1000/uL (130-400); RED BLOOD CELL COUNT 3.12 mill/uL (4.2-5.4); RED CELL DISTRIBUTION WIDTH 17.3 % (11.6-14.6)
[2020-10-29] MEDS: FUROSEMIDE 40MG/4ML VIAL IVP SCH ×2 (06:38→18:30)
[2020-10-29 08:18] LABS: PLATELET ESTIMATE SLIGHTLY DECREASED
[2020-10-29] MEDS: PANTOPRAZOLE SODIUM 40 MG/VIAL IV SCH (08:26)
[2020-10-29] MEDS: BACITRACIN 15GM TUBE TOP SCH (08:27)
[2020-10-29] MEDS: EPOETIN ALFA-EPBX 4,000 UNIT/ML VIAL SUBCUT SCH (21:24)
[2020-10-29] MEDS: FAT EMULSIONS 250 ML IV SCH (21:25)
[2020-10-29] MEDS: TOTAL PARENTERAL NUTRITION 1,400 ML IV SCH (21:26)
[2020-10-30] VITALS (91 sets, daily range): BP systolic 80–130; BP diastolic 37–89
[2020-10-30] MEDS: IPRATROPIUM BROMIDE (0.02%) 0.5MG/2.5ML NEB HHN SCH ×4 (03:05→20:27)
[2020-10-30] MEDS: BLOOD SUGAR DIAGNOSTIC STRIP TEST SCH ×3 (05:14→17:20)
[2020-10-30] MEDS: FUROSEMIDE 40MG/4ML VIAL IVP SCH ×2 (05:37→17:27)
[2020-10-30] MEDS: INSULIN LISPRO 100 UNITS/ML SUBCUT SCH ×3 (05:38→17:29)
[2020-10-30] MEDS: VANCOMYCIN HCL 1000 MG/20 ML ORAL NG SCH ×3 (05:39→17:27)
[2020-10-30] MEDS: PHENYLEPHRINE 100 MG in DEXT 5% WATER 240 ML IV PRN (05:40)
[2020-10-30 06:34] LABS: BASOPHILS % 0.5 % (0.0-2.0); EOSINOPHILS % 0.4 % (0.0-5.0); HEMATOCRIT. 27.7 % (36.0-48.0); HEMOGLOBIN. 8.9 g/dL (12.0-16.0); LYMPHOCYTES % 10.4 % (20.0-50.0); MEAN CORPUSCULAR HEMOGLOBIN 27.6 pg (28.0-32.0); MEAN CORPUSCULAR VOLUME 85.7 fL (81.0-99.0); MEAN PLATELET VOLUME 8.7 fl (7.4-10.4); MONOCYTES % 13.8 % (2.0-8.0); NEUTROPHILS % 74.9 % (40.0-76.0); PLATELET 183 x1000/uL (130-400); RED BLOOD CELL COUNT 3.23 mill/uL (4.2-5.4)
[2020-10-30 06:51] LABS: PHOSPHORUS 2.1 mg/dL (2.5-4.9)
[2020-10-30] MEDS: PANTOPRAZOLE SODIUM 40 MG/VIAL IV SCH (08:18)
[2020-10-30] MEDS: BACITRACIN 15GM TUBE TOP SCH (08:19)
[2020-10-30 11:43] LABS: BG CARBOXYHEMOGLOBIN 0.1 % (0.5-1.5); BG DEOXYHEMOGLOBIN 2.7 % (0.0-5.0); BG FRACTION INSPIRED OXYGEN 40; BG HCO3 ACT 30.3 mmol/L (22.0-26.0); BG METHEMOGLOBIN 0.1 % (0.0-1.5); BG OXYGEN SATURATION 97.3 % (92.0-98.5); BG OXYHEMOGLOBIN 97.1 % (94.0-97.0); BG PCO2 48.6 mmHg (35.0-45.0); BG PH 7.413 (7.350-7.450); BG PO2 90.7 mmHg (75.0-100.0); BG SAMPLE SITE RIGHT RADIAL; BG TOTAL HEMOGLOBIN 9.2 g/dL (12.0-18.0); BG TOTAL RESPIRATORY RATE 24 b/min; BG VENT MODE VENT - SIMV
[2020-10-30] MEDS ORDERED: SODIUM CHLORIDE IV SCH (13:00)
[2020-10-30] MEDS ORDERED: SODIUM PHOS M BASIC D BASIC IV SCH (13:00)
[2020-10-30] MEDS: TOTAL PARENTERAL NUTRITION 1,400 ML IV SCH (20:10)
[2020-10-31] VITALS (93 sets, daily range): BP systolic 84–177; BP diastolic 33–86
[2020-10-31] MEDS: IPRATROPIUM BROMIDE (0.02%) 0.5MG/2.5ML NEB HHN SCH ×4 (00:07→20:21)
[2020-10-31] MEDS: BLOOD SUGAR DIAGNOSTIC STRIP TEST SCH ×4 (00:17→17:22)
[2020-10-31] MEDS: VANCOMYCIN HCL 1000 MG/20 ML ORAL NG SCH ×4 (00:21→17:44)
[2020-10-31] MEDS: INSULIN LISPRO 100 UNITS/ML SUBCUT SCH ×4 (00:22→17:45)
[2020-10-31] MEDS: METOCLOPRAMIDE HCL 10MG/2ML VIAL IV SCH ×4 (00:22→17:44)
[2020-10-31 06:27] LABS: HEMATOCRIT. 25.1 % (36.0-48.0); HEMOGLOBIN. 8.2 g/dL (12.0-16.0); MEAN CORPUSCULAR HEMOGLOBIN 27.6 pg (28.0-32.0); MEAN CORPUSCULAR VOLUME 84.9 fL (81.0-99.0); MEAN PLATELET VOLUME 8.2 fl (7.4-10.4); PLATELET 148 x1000/uL (130-400); RED BLOOD CELL COUNT 2.96 mill/uL (4.2-5.4); RED CELL DISTRIBUTION WIDTH 17.6 % (11.6-14.6)
[2020-10-31] MEDS: FUROSEMIDE 40MG/4ML VIAL IVP SCH ×2 (06:31→17:44)
[2020-10-31 06:34] LABS: PHOSPHORUS 3.5 mg/dL (2.5-4.9)
[2020-10-31] MEDS: PANTOPRAZOLE SODIUM 40 MG/VIAL IV SCH (08:17)
[2020-10-31] MEDS: BACITRACIN 15GM TUBE TOP SCH (08:17)
[2020-10-31 09:58] LABS: PLATELET ESTIMATE NORMAL
[2020-10-31] MEDS ORDERED: MAGNESIUM 2 G PREMIX 50 ML IV NR (20:00)
[2020-10-31] MEDS: TOTAL PARENTERAL NUTRITION 1,400 ML IV SCH (20:05)
[2020-11-01] VITALS (73 sets, daily range): BP systolic 60–144; BP diastolic 26–95
[2020-11-01] MEDS: VANCOMYCIN HCL 1000 MG/20 ML ORAL NG SCH ×4 (00:09→17:11)
[2020-11-01] MEDS: BLOOD SUGAR DIAGNOSTIC STRIP TEST SCH ×5 (00:09→23:48)
[2020-11-01] MEDS: INSULIN LISPRO 100 UNITS/ML SUBCUT SCH ×5 (00:09→23:48)
[2020-11-01] MEDS: METOCLOPRAMIDE HCL 10MG/2ML VIAL IV SCH ×5 (00:09→23:47)
[2020-11-01] MEDS: ACETAMINOPHEN 500MG TABLET PO PRN (01:42)
[2020-11-01] MEDS ORDERED: HYDROCODONE/ACETAMINOPHEN 5/325MG TABLET PO PRN (02:45)
[2020-11-01] MEDS: FUROSEMIDE 40MG/4ML VIAL IVP SCH ×2 (05:26→17:24)
[2020-11-01 05:52] LABS: BASOPHILS % 0.3 % (0.0-2.0); EOSINOPHILS % 0.3 % (0.0-5.0); HEMATOCRIT. 26.3 % (36.0-48.0); HEMOGLOBIN. 8.4 g/dL (12.0-16.0); LYMPHOCYTES % 11.7 % (20.0-50.0); MEAN CORPUSCULAR HEMOGLOBIN 27.1 pg (28.0-32.0); MEAN CORPUSCULAR VOLUME 84.8 fL (81.0-99.0); MEAN PLATELET VOLUME 8.3 fl (7.4-10.4); MONOCYTES % 13.8 % (2.0-8.0); NEUTROPHILS % 73.9 % (40.0-76.0); PLATELET 180 x1000/uL (130-400); RED CELL DISTRIBUTION WIDTH 17.9 % (11.6-14.6)
[2020-11-01] MEDS: PHENYLEPHRINE 100 MG in DEXT 5% WATER 240 ML IV PRN (06:53)
[2020-11-01] MEDS: IPRATROPIUM BROMIDE (0.02%) 0.5MG/2.5ML NEB HHN SCH ×3 (08:16→20:23)
[2020-11-01] MEDS: PANTOPRAZOLE SODIUM 40 MG/VIAL IV SCH (09:17)
[2020-11-01] MEDS: BACITRACIN 15GM TUBE TOP SCH (09:17)
[2020-11-01 12:16] LABS: BG BASE EXCESS 3.9 mmol/L (-2.0-2.0); BG CARBOXYHEMOGLOBIN 0.4 % (0.5-1.5); BG DEOXYHEMOGLOBIN 2.9 % (0.0-5.0); BG FRACTION INSPIRED OXYGEN 40; BG HCO3 ACT 27.7 mmol/L (22.0-26.0); BG METHEMOGLOBIN 0.1 % (0.0-1.5); BG OXYGEN SATURATION 97.1 % (92.0-98.5); BG OXYHEMOGLOBIN 96.6 % (94.0-97.0); BG PCO2 38.7 mmHg (35.0-45.0); BG PH 7.473 (7.350-7.450); BG PO2 89.4 mmHg (75.0-100.0); BG SAMPLE SITE LEFT RADIAL; BG TOTAL HEMOGLOBIN 8.5 g/dL (12.0-18.0); BG TOTAL RESPIRATORY RATE 23 b/min; BG VENT MODE VENT - AC
[2020-11-01] MEDS ORDERED: INSULIN GLARGINE UD 100 UNITS/ML SYR SUBCUT SCH ×2 (15:00→21:00)
[2020-11-01] MEDS: TOTAL PARENTERAL NUTRITION 1,400 ML IV SCH (21:44)
[2020-11-02] VITALS (60 sets, daily range): BP systolic 83–127; BP diastolic 50–89
[2020-11-02] MEDS: IPRATROPIUM BROMIDE (0.02%) 0.5MG/2.5ML NEB HHN SCH ×4 (00:13→19:40)
[2020-11-02] MEDS: ACETAMINOPHEN 500MG TABLET PO PRN ×2 (04:22→20:28)
[2020-11-02] MEDS: BLOOD SUGAR DIAGNOSTIC STRIP TEST SCH ×3 (06:00→18:00)
[2020-11-02 06:04] LABS: BASOPHILS % 0.4 % (0.0-2.0); EOSINOPHILS % 0.6 % (0.0-5.0); HEMATOCRIT. 21.5 % (36.0-48.0); HEMOGLOBIN. 7.2 g/dL (12.0-16.0); LYMPHOCYTES % 14.7 % (20.0-50.0); MEAN CORPUSCULAR HEMOGLOBIN 27.7 pg (28.0-32.0); MEAN CORPUSCULAR VOLUME 82.8 fL (81.0-99.0); MEAN PLATELET VOLUME 8.1 fl (7.4-10.4); MONOCYTES % 11.8 % (2.0-8.0); NEUTROPHILS % 72.5 % (40.0-76.0); PLATELET 162 x1000/uL (130-400); RED CELL DISTRIBUTION WIDTH 17.5 % (11.6-14.6)
[2020-11-02] MEDS: INSULIN LISPRO 100 UNITS/ML SUBCUT SCH ×3 (06:18→19:11)
[2020-11-02] MEDS: FUROSEMIDE 40MG/4ML VIAL IVP SCH ×2 (06:32→19:01)
[2020-11-02] MEDS: METOCLOPRAMIDE HCL 10MG/2ML VIAL IV SCH ×3 (06:32→19:01)
[2020-11-02 08:51] LABS: BG BASE EXCESS 4.6 mmol/L (-2.0-2.0); BG CARBOXYHEMOGLOBIN 0.2 % (0.5-1.5); BG DEOXYHEMOGLOBIN 2.9 % (0.0-5.0); BG FRACTION INSPIRED OXYGEN 40; BG HCO3 ACT 28.2 mmol/L (22.0-26.0); BG METHEMOGLOBIN 0.4 % (0.0-1.5); BG OXYGEN SATURATION 97.1 % (92.0-98.5); BG OXYHEMOGLOBIN 96.5 % (94.0-97.0); BG PCO2 37.5 mmHg (35.0-45.0); BG PH 7.494 (7.350-7.450); BG SAMPLE SITE RIGHT RADIAL; BG TOTAL HEMOGLOBIN 7.6 g/dL (12.0-18.0); BG VENT MODE VENT - AC
[2020-11-02] MEDS: BACITRACIN 15GM TUBE TOP SCH (09:45)
[2020-11-02] MEDS: MORPHINE SULFATE 2 MG/ML CPJ (NOT FOR IM USE) IV PRN (09:45)
[2020-11-02] MEDS: PANTOPRAZOLE SODIUM 40 MG/VIAL IV SCH (09:45)
[2020-11-02] MEDS: INSULIN GLARGINE UD 100 UNITS/ML SYR SUBCUT SCH ×3 (10:00→22:27)
[2020-11-02 15:00] LABS: CHLORIDE 110 mEq/L (98-107)
[2020-11-02 15:07] LABS: INR 1.3; PROTHROMBIN TIME 14.1 sec (9.6-11.0)
[2020-11-02 15:26] LABS: HEMOGLOBIN 9.2 g/dL (12.0-16.0)
[2020-11-02 15:27] LABS: HEMATOCRIT 27.9 % (36.0-48.0)
[2020-11-02] MEDS: TOTAL PARENTERAL NUTRITION 1,400 ML IV SCH (20:01)
[2020-11-02] MEDS: FAT EMULSIONS 250 ML IV SCH (20:02)
[2020-11-03] VITALS (11 sets, daily range): BP systolic 85–116; BP diastolic 55–72
[2020-11-03] MEDS: BLOOD SUGAR DIAGNOSTIC STRIP TEST SCH ×4 (00:30→17:45)
[2020-11-03] MEDS: METOCLOPRAMIDE HCL 10MG/2ML VIAL IV SCH ×4 (00:33→18:07)
[2020-11-03] MEDS: IPRATROPIUM BROMIDE (0.02%) 0.5MG/2.5ML NEB HHN SCH ×4 (00:33→22:13)
[2020-11-03] MEDS: INSULIN LISPRO 100 UNITS/ML SUBCUT SCH ×4 (00:35→18:07)
[2020-11-03] MEDS: MORPHINE SULFATE 2 MG/ML CPJ (NOT FOR IM USE) IV PRN (01:00)
[2020-11-03] MEDS: FUROSEMIDE 40MG/4ML VIAL IVP SCH ×2 (05:58→18:00)
[2020-11-03 07:19] LABS: BASOPHILS % 0.7 % (0.0-2.0); EOSINOPHILS % 0.3 % (0.0-5.0); HEMATOCRIT. 28.3 % (36.0-48.0); HEMOGLOBIN. 9.4 g/dL (12.0-16.0); LYMPHOCYTES % 12.3 % (20.0-50.0); MEAN CORPUSCULAR HEMOGLOBIN 28.7 pg (28.0-32.0); MEAN CORPUSCULAR VOLUME 86.6 fL (81.0-99.0); MEAN PLATELET VOLUME 8.2 fl (7.4-10.4); MONOCYTES % 7.6 % (2.0-8.0); NEUTROPHILS % 79.1 % (40.0-76.0); PLATELET 174 x1000/uL (130-400); RED BLOOD CELL COUNT 3.27 mill/uL (4.2-5.4); RED CELL DISTRIBUTION WIDTH 16.6 % (11.6-14.6)
[2020-11-03] MEDS: PANTOPRAZOLE SODIUM 40 MG/VIAL IV SCH (09:01)
[2020-11-03] MEDS: ACETAMINOPHEN 500MG TABLET PO PRN (09:01)
[2020-11-03] MEDS: BACITRACIN 15GM TUBE TOP SCH (09:02)
[2020-11-03] MEDS: INSULIN GLARGINE UD 100 UNITS/ML SYR SUBCUT SCH (10:42)
[2020-11-03] MEDS: PHYTONADIONE 10MG/ML AMP SUBCUT SCH (10:43)
[2020-11-03] MEDS ORDERED: MAGNESIUM 2 G PREMIX 50 ML IV SCH (11:00)
[2020-11-03] MEDS: TOTAL PARENTERAL NUTRITION 1,400 ML IV SCH (21:22)
[2020-11-03] MEDS ORDERED: CEFEPIME 2,000 MG in DEXT 5% WATER 100 ML IV SCH (23:00)
[2020-11-04] VITALS (12 sets, daily range): BP systolic 98–127; BP diastolic 39–90
[2020-11-04] MEDS: METOCLOPRAMIDE HCL 10MG/2ML VIAL IV SCH ×4 (00:02→18:23)
[2020-11-04] MEDS: BLOOD SUGAR DIAGNOSTIC STRIP TEST SCH ×4 (00:02→18:08)
[2020-11-04] MEDS: INSULIN LISPRO 100 UNITS/ML SUBCUT SCH ×4 (00:03→18:23)
[2020-11-04] MEDS: INSULIN GLARGINE UD 100 UNITS/ML SYR SUBCUT SCH (00:04)
[2020-11-04] MEDS ORDERED: VANCOMYCIN 1500MG in DEXTROSE 5% WATER 250ML IV NR (01:00)
[2020-11-04] MEDS: IPRATROPIUM BROMIDE (0.02%) 0.5MG/2.5ML NEB HHN SCH ×4 (02:23→21:27)
[2020-11-04] MEDS: FUROSEMIDE 40MG/4ML VIAL IVP SCH ×2 (05:37→18:00)
[2020-11-04 07:15] LABS: CHLORIDE 106 mEq/L (98-107)
[2020-11-04 07:36] LABS: BASOPHILS % 0.5 % (0.0-2.0); EOSINOPHILS % 0.4 % (0.0-5.0); HEMATOCRIT. 25.7 % (36.0-48.0); HEMOGLOBIN. 8.4 g/dL (12.0-16.0); LYMPHOCYTES % 11.3 % (20.0-50.0); MEAN CORPUSCULAR HEMOGLOBIN 28.2 pg (28.0-32.0); MEAN CORPUSCULAR VOLUME 86.2 fL (81.0-99.0); MEAN PLATELET VOLUME 8.5 fl (7.4-10.4); MONOCYTES % 9.7 % (2.0-8.0); NEUTROPHILS % 78.1 % (40.0-76.0); PLATELET 141 x1000/uL (130-400); RED BLOOD CELL COUNT 2.99 mill/uL (4.2-5.4); RED CELL DISTRIBUTION WIDTH 17.5 % (11.6-14.6)
[2020-11-04] MEDS: PANTOPRAZOLE SODIUM 40 MG/VIAL IV SCH (08:42)
[2020-11-04] MEDS: BACITRACIN 15GM TUBE TOP SCH (08:42)
[2020-11-04] MEDS: ACETAMINOPHEN 500MG TABLET PO PRN (08:42)
[2020-11-04] MEDS ORDERED: CEFEPIME 1,000 MG in DEXTROSE 5% WATER 50 ML IV SCH (21:00)
[2020-11-04] MEDS: TOTAL PARENTERAL NUTRITION 1,400 ML IV SCH (21:00)
[2020-11-04] MEDS ORDERED: VANCOMYCIN 500 MG PREMIX 100 ML IV SCH (21:00)
[2020-11-05] VITALS (15 sets, daily range): BP systolic 79–118; BP diastolic 42–71
[2020-11-05] MEDS: METOCLOPRAMIDE HCL 10MG/2ML VIAL IV SCH ×5 (00:41→23:33)
[2020-11-05] MEDS: INSULIN LISPRO 100 UNITS/ML SUBCUT SCH ×5 (00:41→23:33)
[2020-11-05] MEDS: BLOOD SUGAR DIAGNOSTIC STRIP TEST SCH ×5 (00:41→23:33)
[2020-11-05] MEDS: INSULIN GLARGINE UD 100 UNITS/ML SYR SUBCUT SCH ×3 (00:42→22:27)
[2020-11-05] MEDS ORDERED: DEXT 10% WATER 1,000 ML IV SCH (01:00)
[2020-11-05] MEDS ORDERED: VANCOMYCIN 750 MG PREMIX 150 ML IV SCH (01:00)
[2020-11-05] MEDS: IPRATROPIUM BROMIDE (0.02%) 0.5MG/2.5ML NEB HHN SCH ×3 (01:17→20:41)
[2020-11-05] MEDS: FUROSEMIDE 40MG/4ML VIAL IVP SCH ×2 (05:23→18:00)
[2020-11-05 06:35] LABS: BASOPHILS % 0.4 % (0.0-2.0); EOSINOPHILS % 0.6 % (0.0-5.0); HEMATOCRIT. 23.4 % (36.0-48.0); HEMOGLOBIN. 7.6 g/dL (12.0-16.0); MEAN CORPUSCULAR HEMOGLOBIN 27.7 pg (28.0-32.0); MEAN CORPUSCULAR VOLUME 85.6 fL (81.0-99.0); MEAN PLATELET VOLUME 8.4 fl (7.4-10.4); MONOCYTES % 7.6 % (2.0-8.0); NEUTROPHILS % 78.4 % (40.0-76.0); PLATELET 116 x1000/uL (130-400); RED BLOOD CELL COUNT 2.74 mill/uL (4.2-5.4); RED CELL DISTRIBUTION WIDTH 17.6 % (11.6-14.6)
[2020-11-05] MEDS: PANTOPRAZOLE SODIUM 40 MG/VIAL IV SCH (08:59)
[2020-11-05 10:07] LABS: BG BASE EXCESS 1.1 mmol/L (-2.0-2.0); BG CARBOXYHEMOGLOBIN 1.3 % (0.5-1.5); BG DEOXYHEMOGLOBIN 3.1 % (0.0-5.0); BG FRACTION INSPIRED OXYGEN 40; BG HCO3 ACT 24.3 mmol/L (22.0-26.0); BG OXYGEN SATURATION 96.9 % (92.0-98.5); BG OXYHEMOGLOBIN 95.6 % (94.0-97.0); BG PCO2 32.9 mmHg (35.0-45.0); BG PH 7.486 (7.350-7.450); BG PO2 85.3 mmHg (75.0-100.0); BG SAMPLE SITE RIGHT RADIAL; BG TOTAL HEMOGLOBIN 8.7 g/dL (12.0-18.0); BG VENT MODE VENT - AC
[2020-11-05] MEDS: BACITRACIN 15GM TUBE TOP SCH (10:18)
[2020-11-05] MEDS ORDERED: TOTAL PARENTERAL NUTRITION 1,500 ML IV SCH (13:00)
[2020-11-05] MEDS: TOTAL PARENTERAL NUTRITION 1,500 ML IV SCH (17:26)
[2020-11-05] MEDS: MEROPENEM 1,000 MG in SODIUM CHLORIDE 0.9% 100 ML IV SCH (18:13)
[2020-11-05] MEDS ORDERED: SODIUM CHLORIDE 0.9% 200 ML IV ONE (18:30)
[2020-11-05] MEDS: MIDODRINE HCL 5MG TABLET PO SCH (18:36)
[2020-11-05] MEDS: FAT EMULSIONS 250 ML IV SCH (21:11)
[2020-11-05] MEDS: TOTAL PARENTERAL NUTRITION 1,400 ML IV SCH (21:15)
[2020-11-05] MEDS ORDERED: NOREPINEPHRINE 8MG/250ML PMX 250 ML IV ONE (21:45)
[2020-11-05] MEDS ORDERED: NOREPINEPHRINE 32 MG in DEXT 5% WATER 218 ML IV PRN (22:00)
[2020-11-06] VITALS (12 sets, daily range): BP systolic 93–122; BP diastolic 42–76
[2020-11-06] MEDS: IPRATROPIUM/ALBUTEROL 0.5-3(2.5)MG/3ML NEB HHN SCH ×4 (00:33→23:59)
[2020-11-06] MEDS ORDERED: LIDOCAINE HCL/PF 1% 2ML VIAL ONE (05:00)
[2020-11-06] MEDS: METOCLOPRAMIDE HCL 10MG/2ML VIAL IV SCH ×3 (05:11→18:12)
[2020-11-06] MEDS: BLOOD SUGAR DIAGNOSTIC STRIP TEST SCH ×3 (05:11→18:00)
[2020-11-06] MEDS: INSULIN LISPRO 100 UNITS/ML SUBCUT SCH ×3 (05:11→18:43)
[2020-11-06] MEDS: FUROSEMIDE 40MG/4ML VIAL IVP SCH ×2 (05:12→18:12)
[2020-11-06 05:47] LABS: BASOPHILS % 0.5 % (0.0-2.0); EOSINOPHILS % 1.2 % (0.0-5.0); HEMATOCRIT. 24.1 % (36.0-48.0); HEMOGLOBIN. 7.7 g/dL (12.0-16.0); LYMPHOCYTES % 11.4 % (20.0-50.0); MEAN CORPUSCULAR HEMOGLOBIN 27.8 pg (28.0-32.0); MEAN CORPUSCULAR VOLUME 86.8 fL (81.0-99.0); MEAN PLATELET VOLUME 8.9 fl (7.4-10.4); MONOCYTES % 7.5 % (2.0-8.0); NEUTROPHILS % 79.4 % (40.0-76.0); PLATELET 117 x1000/uL (130-400); RED BLOOD CELL COUNT 2.77 mill/uL (4.2-5.4); RED CELL DISTRIBUTION WIDTH 17.8 % (11.6-14.6)
[2020-11-06 08:17] LABS: BG BASE EXCESS -1.3 mmol/L (-2.0-2.0); BG CARBOXYHEMOGLOBIN 0.1 % (0.5-1.5); BG DEOXYHEMOGLOBIN 4.6 % (0.0-5.0); BG HCO3 ACT 21.8 mmol/L (22.0-26.0); BG METHEMOGLOBIN 0.3 % (0.0-1.5); BG OXYGEN SATURATION 95.4 % (92.0-98.5); BG PCO2 30.2 mmHg (35.0-45.0); BG PH 7.477 (7.350-7.450); BG PO2 77.2 mmHg (75.0-100.0); BG SAMPLE SITE RIGHT RADIAL; BG TOTAL HEMOGLOBIN 8.1 g/dL (12.0-18.0); BG VENT MODE VENT - AC
[2020-11-06] MEDS ORDERED: MAGNESIUM 1 G PREMIX 100 ML IV NR (10:00)
[2020-11-06] MEDS: MIDODRINE HCL 5MG TABLET PO SCH ×3 (10:27→18:12)
[2020-11-06] MEDS: BACITRACIN 15GM TUBE TOP SCH (10:30)
[2020-11-06] MEDS: INSULIN GLARGINE UD 100 UNITS/ML SYR SUBCUT SCH (10:35)
[2020-11-06 12:56] LABS: HEPATITIS B SURFACE ANTIGEN NEGATIVE
[2020-11-06 14:37] LABS: BG BASE EXCESS 0.8 mmol/L (-2.0-2.0); BG CARBOXYHEMOGLOBIN 0.6 % (0.5-1.5); BG DEOXYHEMOGLOBIN 4.3 % (0.0-5.0); BG FRACTION INSPIRED OXYGEN 40; BG HCO3 ACT 23.5 mmol/L (22.0-26.0); BG METHEMOGLOBIN 0.1 % (0.0-1.5); BG OXYGEN SATURATION 95.7 % (92.0-98.5); BG PCO2 30.1 mmHg (35.0-45.0); BG PO2 77.1 mmHg (75.0-100.0); BG SAMPLE SITE LEFT RADIAL; BG TOTAL HEMOGLOBIN 8.5 g/dL (12.0-18.0); BG TOTAL RESPIRATORY RATE 35 b/min; BG VENT MODE VENT - AC
[2020-11-06] MEDS: TOTAL PARENTERAL NUTRITION 1,500 ML IV SCH (18:00)
[2020-11-06] MEDS: MEROPENEM 1,000 MG in SODIUM CHLORIDE 0.9% 100 ML IV SCH (18:41)
[2020-11-06] MEDS ORDERED: TOTAL PARENTERAL NUTRITION 1,500 ML IV SCH (21:00)
[2020-11-06] MEDS: MORPHINE SULFATE 2 MG/ML CPJ (NOT FOR IM USE) IV PRN (21:33)
[2020-11-07] VITALS (11 sets, daily range): BP systolic 92–114; BP diastolic 43–68
[2020-11-07] MEDS: BLOOD SUGAR DIAGNOSTIC STRIP TEST SCH ×5 (00:12→23:16)
[2020-11-07] MEDS: METOCLOPRAMIDE HCL 10MG/2ML VIAL IV SCH ×5 (00:15→23:30)
[2020-11-07] MEDS: INSULIN GLARGINE UD 100 UNITS/ML SYR SUBCUT SCH ×3 (00:25→23:31)
[2020-11-07] MEDS: INSULIN LISPRO 100 UNITS/ML SUBCUT SCH ×5 (00:25→23:16)
[2020-11-07] MEDS: FUROSEMIDE 40MG/4ML VIAL IVP SCH ×2 (05:37→18:00)
[2020-11-07 08:13] LABS: BASOPHILS % 0.6 % (0.0-2.0); EOSINOPHILS % 1.2 % (0.0-5.0); HEMATOCRIT. 23.2 % (36.0-48.0); HEMOGLOBIN. 7.4 g/dL (12.0-16.0); LYMPHOCYTES % 12.7 % (20.0-50.0); MEAN CORPUSCULAR HEMOGLOBIN 27.5 pg (28.0-32.0); MEAN CORPUSCULAR VOLUME 86.2 fL (81.0-99.0); MONOCYTES % 11.6 % (2.0-8.0); NEUTROPHILS % 73.9 % (40.0-76.0); PLATELET 103 x1000/uL (130-400); RED BLOOD CELL COUNT 2.69 mill/uL (4.2-5.4); RED CELL DISTRIBUTION WIDTH 17.8 % (11.6-14.6)
[2020-11-07] MEDS: IPRATROPIUM/ALBUTEROL 0.5-3(2.5)MG/3ML NEB HHN SCH ×2 (08:17→16:24)
[2020-11-07 08:38] LABS: CHLORIDE 104 mEq/L (98-107)
[2020-11-07] MEDS: MIDODRINE HCL 5MG TABLET PO SCH ×3 (09:58→17:21)
[2020-11-07] MEDS: BACITRACIN 15GM TUBE TOP SCH (10:08)
[2020-11-07] MEDS: ACETAMINOPHEN 650MG/20.3ML UDC PO PRN (16:38)
[2020-11-07] MEDS: MEROPENEM 1,000 MG in SODIUM CHLORIDE 0.9% 100 ML IV SCH (17:19)
[2020-11-07] MEDS: TOTAL PARENTERAL NUTRITION 1,500 ML IV SCH (21:52)
[2020-11-08] VITALS (16 sets, daily range): BP systolic 82–131; BP diastolic 39–103
[2020-11-08] MEDS: IPRATROPIUM/ALBUTEROL 0.5-3(2.5)MG/3ML NEB HHN SCH ×4 (00:15→20:46)
[2020-11-08] MEDS: INSULIN LISPRO 100 UNITS/ML SUBCUT SCH ×4 (05:39→23:34)
[2020-11-08] MEDS: METOCLOPRAMIDE HCL 10MG/2ML VIAL IV SCH ×4 (05:39→23:33)
[2020-11-08] MEDS: FUROSEMIDE 40MG/4ML VIAL IVP SCH ×2 (05:39→17:06)
[2020-11-08] MEDS: BLOOD SUGAR DIAGNOSTIC STRIP TEST SCH ×4 (05:40→23:33)
[2020-11-08 08:17] LABS: BASOPHILS % 0.8 % (0.0-2.0); EOSINOPHILS % 1.4 % (0.0-5.0); MEAN CORPUSCULAR HEMOGLOBIN 28.4 pg (28.0-32.0); MEAN CORPUSCULAR VOLUME 85.5 fL (81.0-99.0); MEAN PLATELET VOLUME 9.3 fl (7.4-10.4); MONOCYTES % 12.1 % (2.0-8.0); NEUTROPHILS % 72.7 % (40.0-76.0); PLATELET 113 x1000/uL (130-400); RED CELL DISTRIBUTION WIDTH 17.7 % (11.6-14.6)
[2020-11-08] MEDS: BACITRACIN 15GM TUBE TOP SCH (08:19)
[2020-11-08] MEDS: MIDODRINE HCL 5MG TABLET PO SCH ×3 (08:20→16:46)
[2020-11-08 09:55] LABS: HEMATOCRIT. 19.7 % (36.0-48.0); HEMOGLOBIN. 6.5 g/dL (12.0-16.0)
[2020-11-08] MEDS: INSULIN GLARGINE UD 100 UNITS/ML SYR SUBCUT SCH ×2 (11:22→23:33)
[2020-11-08 14:35] LABS: BG BASE EXCESS 0.3 mmol/L (-2.0-2.0); BG CARBOXYHEMOGLOBIN 1.3 % (0.5-1.5); BG FRACTION INSPIRED OXYGEN 40; BG METHEMOGLOBIN 0.3 % (0.0-1.5); BG OXYHEMOGLOBIN 95.4 % (94.0-97.0); BG PCO2 34.4 mmHg (35.0-45.0); BG PH 7.462 (7.350-7.450); BG SAMPLE SITE LEFT RADIAL; BG TOTAL HEMOGLOBIN 7.6 g/dL (12.0-18.0); BG VENT MODE VENT - AC
[2020-11-08] MEDS: MEROPENEM 1,000 MG in SODIUM CHLORIDE 0.9% 100 ML IV SCH (16:46)
[2020-11-08 18:46] LABS: BASOPHILS % 0.9 % (0.0-2.0); EOSINOPHILS % 1.8 % (0.0-5.0); HEMATOCRIT. 26.5 % (36.0-48.0); HEMOGLOBIN. 8.9 g/dL (12.0-16.0); LYMPHOCYTES % 11.7 % (20.0-50.0); MEAN CORPUSCULAR HEMOGLOBIN 29.2 pg (28.0-32.0); MEAN CORPUSCULAR VOLUME 86.6 fL (81.0-99.0); MEAN PLATELET VOLUME 9.1 fl (7.4-10.4); MONOCYTES % 9.8 % (2.0-8.0); NEUTROPHILS % 75.8 % (40.0-76.0); PLATELET 146 x1000/uL (130-400); RED BLOOD CELL COUNT 3.06 mill/uL (4.2-5.4); RED CELL DISTRIBUTION WIDTH 18.9 % (11.6-14.6)
[2020-11-08] MEDS: TOTAL PARENTERAL NUTRITION 1,500 ML IV SCH (20:56)
[2020-11-08] MEDS: ACETAMINOPHEN 650MG SUPP PR PRN (20:59)
[2020-11-09] VITALS (14 sets, daily range): BP systolic 70–118; BP diastolic 33–73
[2020-11-09] MEDS: INSULIN LISPRO 100 UNITS/ML SUBCUT SCH ×3 (05:15→17:16)
[2020-11-09] MEDS: BLOOD SUGAR DIAGNOSTIC STRIP TEST SCH ×3 (05:15→17:16)
[2020-11-09] MEDS: METOCLOPRAMIDE HCL 10MG/2ML VIAL IV SCH ×3 (05:25→17:15)
[2020-11-09] MEDS: FUROSEMIDE 40MG/4ML VIAL IVP SCH ×2 (05:25→17:15)
[2020-11-09 06:02] LABS: BASOPHILS % 0.5 % (0.0-2.0); EOSINOPHILS % 1.5 % (0.0-5.0); HEMATOCRIT. 25.4 % (36.0-48.0); HEMOGLOBIN. 8.5 g/dL (12.0-16.0); LYMPHOCYTES % 12.1 % (20.0-50.0); MEAN CORPUSCULAR HEMOGLOBIN 28.8 pg (28.0-32.0); MEAN CORPUSCULAR VOLUME 86.2 fL (81.0-99.0); MEAN PLATELET VOLUME 9.1 fl (7.4-10.4); MONOCYTES % 10.1 % (2.0-8.0); NEUTROPHILS % 75.8 % (40.0-76.0); PLATELET 128 x1000/uL (130-400); RED BLOOD CELL COUNT 2.95 mill/uL (4.2-5.4); RED CELL DISTRIBUTION WIDTH 18.6 % (11.6-14.6)
[2020-11-09] MEDS: IPRATROPIUM/ALBUTEROL 0.5-3(2.5)MG/3ML NEB HHN SCH ×2 (08:35→16:20)
[2020-11-09] MEDS: MIDODRINE HCL 5MG TABLET PO SCH ×3 (10:16→17:16)
[2020-11-09] MEDS: INSULIN GLARGINE UD 100 UNITS/ML SYR SUBCUT SCH (10:31)
[2020-11-09] MEDS: BACITRACIN 15GM TUBE TOP SCH (10:32)
[2020-11-09] MEDS: ACETAMINOPHEN 650MG/20.3ML UDC PO PRN ×2 (13:28→20:50)
[2020-11-09] MEDS: MEROPENEM 1,000 MG in SODIUM CHLORIDE 0.9% 100 ML IV SCH (17:15)
[2020-11-09] MEDS ORDERED: DIGOXIN 500MCG/2ML AMP IV STA (18:30)
[2020-11-09] MEDS ORDERED: DILTIAZEM HCL 5MG/ML 5ML VIAL IV NR (18:45)
[2020-11-09] MEDS ORDERED: DILTIAZEM HCL 125 MG in DEXT 5% WATER 100 ML IV PRN (19:45)
[2020-11-09] MEDS ORDERED: PHENYLEPHRINE 100 MG in DEXT 5% WATER 240 ML IV PRN (20:45)
[2020-11-09] MEDS ORDERED: AMIODARONE HCL 900 MG in DEXT 5% WATER 482 ML IV PRN (22:00)
[2020-11-09] MEDS ORDERED: AMIODARONE HCL 150 MG in DEXT 5% WATER 97 ML IV NR (22:00)
[2020-11-09] MEDS: FAT EMULSIONS 250 ML IV SCH (22:19)
[2020-11-09] MEDS: TOTAL PARENTERAL NUTRITION 1,500 ML IV SCH (22:19)
[2020-11-09] MEDS: CLOTRIMAZOLE 1% CREAM 30GM TOP SCH (22:20)
[2020-11-10] VITALS (118 sets, daily range): BP systolic 66–204; BP diastolic 30–178
[2020-11-10] MEDS ORDERED: VANCOMYCIN 1500MG in DEXTROSE 5% WATER 250ML IV NR
[2020-11-10] MEDS: BLOOD SUGAR DIAGNOSTIC STRIP TEST SCH ×5 (00:40→23:05)
[2020-11-10] MEDS ORDERED: NOREPINEPHRINE 8MG/250ML PMX 250 ML IV PRN (01:00)
[2020-11-10] MEDS: INSULIN LISPRO 100 UNITS/ML SUBCUT SCH ×5 (01:03→23:10)
[2020-11-10] MEDS: IPRATROPIUM/ALBUTEROL 0.5-3(2.5)MG/3ML NEB HHN SCH ×3 (01:03→16:24)
[2020-11-10] MEDS: NOREPINEPHRINE 8 MG in DEXTROSE 5% WATER 250 ML IV PRN (01:10)
[2020-11-10] MEDS: PHENYLEPHRINE 100 MG in DEXT 5% WATER 240 ML IV PRN ×2 (03:05→11:28)
[2020-11-10] MEDS: FUROSEMIDE 40MG/4ML VIAL IVP SCH ×2 (05:45→17:09)
[2020-11-10] MEDS: METOCLOPRAMIDE HCL 10MG/2ML VIAL IV SCH ×5 (05:45→23:13)
[2020-11-10 06:27] LABS: HEMATOCRIT 28.7 % (36.0-48.0); HEMOGLOBIN 9.4 g/dL (12.0-16.0); MEAN CORPUSCULAR HEMOGLOBIN 28.8 pg (28.0-32.0); MEAN CORPUSCULAR VOLUME 87.8 fL (81.0-99.0); PLATELET 147 x1000/uL (130-400); RED BLOOD CELL COUNT 3.27 mill/uL (4.2-5.4); RED CELL DISTRIBUTION WIDTH 19.3 % (11.6-14.6)
[2020-11-10 06:48] LABS: CHLORIDE 97 mEq/L (98-107)
[2020-11-10] MEDS: MIDODRINE HCL 5MG TABLET PO SCH ×3 (09:00→16:19)
[2020-11-10] MEDS ORDERED: PIPERACILLIN/TAZOBACTAM 3.375 G in DEXTROSE 5% WATER 50 ML IV SCH (09:00)
[2020-11-10] MEDS: BACITRACIN 15GM TUBE TOP SCH (09:31)
[2020-11-10] MEDS: PHYTONADIONE 10MG/ML AMP SUBCUT SCH (09:31)
[2020-11-10] MEDS: CLOTRIMAZOLE 1% CREAM 30GM TOP SCH ×2 (09:32→21:13)
[2020-11-10] MEDS ORDERED: MAGNESIUM 2 G PREMIX 50 ML IV NR (10:00)
[2020-11-10] MEDS ORDERED: AMIODARONE HCL 150 MG in DEXT 5% WATER 100 ML IV PRN (10:30)
[2020-11-10] MEDS: INSULIN GLARGINE UD 100 UNITS/ML SYR SUBCUT SCH ×2 (11:29→23:09)
[2020-11-10] MEDS ORDERED: LIDOCAINE HCL 1% 20ML VIAL (Pyxis) INJ ONE (13:12)
[2020-11-10] MEDS: MEROPENEM 1,000 MG in SODIUM CHLORIDE 0.9% 100 ML IV SCH (16:06)
[2020-11-10] MEDS: TOTAL PARENTERAL NUTRITION 1,500 ML IV SCH (21:34)
[2020-11-11] VITALS (98 sets, daily range): BP systolic 76–149; BP diastolic 35–108
[2020-11-11] MEDS: IPRATROPIUM/ALBUTEROL 0.5-3(2.5)MG/3ML NEB HHN SCH ×3 (00:55→21:01)
[2020-11-11] MEDS: PHENYLEPHRINE 100 MG in DEXT 5% WATER 240 ML IV PRN ×2 (05:03→19:56)
[2020-11-11 05:31] LABS: HEMOGLOBIN. 8.9 g/dL (12.0-16.0); MEAN CORPUSCULAR HEMOGLOBIN 29.5 pg (28.0-32.0); MEAN CORPUSCULAR VOLUME 86.3 fL (81.0-99.0); MEAN PLATELET VOLUME 9.1 fl (7.4-10.4); PLATELET 138 x1000/uL (130-400); RED BLOOD CELL COUNT 3.02 mill/uL (4.2-5.4); RED CELL DISTRIBUTION WIDTH 19.2 % (11.6-14.6)
[2020-11-11] MEDS: FUROSEMIDE 40MG/4ML VIAL IVP SCH ×2 (06:00→17:30)
[2020-11-11] MEDS: METOCLOPRAMIDE HCL 10MG/2ML VIAL IV SCH ×3 (06:10→17:42)
[2020-11-11] MEDS: INSULIN LISPRO 100 UNITS/ML SUBCUT SCH ×4 (06:10→23:14)
[2020-11-11] MEDS: BLOOD SUGAR DIAGNOSTIC STRIP TEST SCH ×4 (06:14→23:10)
[2020-11-11] MEDS: MIDODRINE HCL 5MG TABLET PO SCH ×3 (09:00→16:37)
[2020-11-11] MEDS: CLOTRIMAZOLE 1% CREAM 30GM TOP SCH ×2 (09:57→20:10)
[2020-11-11] MEDS: BACITRACIN 15GM TUBE TOP SCH (09:57)
[2020-11-11 12:20] LABS: HEPATITIS B SURFACE ANTIGEN NEGATIVE
[2020-11-11] MEDS: INSULIN GLARGINE UD 100 UNITS/ML SYR SUBCUT SCH ×2 (12:37→23:14)
[2020-11-11 13:10] LABS: NUCLEATED RED BLOOD CELLS 2 /100 WBC; PLATELET ESTIMATE NORMAL
[2020-11-11] MEDS: MEROPENEM 1,000 MG in SODIUM CHLORIDE 0.9% 100 ML IV SCH (17:42)
[2020-11-11] MEDS: NOREPINEPHRINE 8 MG in DEXTROSE 5% WATER 250 ML IV PRN (19:48)
[2020-11-11] MEDS: TOTAL PARENTERAL NUTRITION 1,500 ML IV SCH (20:10)
[2020-11-11] MEDS: NYSTATIN POWDER 15GM TOP SCH (20:42)
[2020-11-11] MEDS: ACETYLCYSTEINE 100MG/ML 10% VIAL 4ML INH SCH (21:01)
[2020-11-11] MEDS ORDERED: DIATR MEGLU/DIATRIZOATE SOLN 30ML PO SCH (21:15)
[2020-11-12] VITALS (99 sets, daily range): BP systolic 58–165; BP diastolic 21–112
[2020-11-12] MEDS: IPRATROPIUM/ALBUTEROL 0.5-3(2.5)MG/3ML NEB HHN SCH ×4 (00:27→19:50)
[2020-11-12] MEDS: METOCLOPRAMIDE HCL 10MG/2ML VIAL IV SCH ×4 (00:33→18:36)
[2020-11-12] MEDS ORDERED: NALOXONE HCL 0.4MG/ML VIAL IV PRN (03:15)
[2020-11-12] MEDS: MORPHINE SULFATE 2 MG/ML CPJ (NOT FOR IM USE) IV PRN ×2 (03:36→10:14)
[2020-11-12 05:23] LABS: HEMATOCRIT. 27.6 % (36.0-48.0); HEMOGLOBIN. 9.4 g/dL (12.0-16.0); MEAN CORPUSCULAR HEMOGLOBIN 29.1 pg (28.0-32.0); MEAN CORPUSCULAR VOLUME 85.8 fL (81.0-99.0); MEAN PLATELET VOLUME 8.8 fl (7.4-10.4); PLATELET 134 x1000/uL (130-400); RED BLOOD CELL COUNT 3.22 mill/uL (4.2-5.4); RED CELL DISTRIBUTION WIDTH 19.9 % (11.6-14.6)
[2020-11-12 05:30] LABS: CHLORIDE 92 mEq/L (98-107)
[2020-11-12] MEDS: FUROSEMIDE 40MG/4ML VIAL IVP SCH ×2 (06:00→18:36)
[2020-11-12] MEDS: INSULIN LISPRO 100 UNITS/ML SUBCUT SCH ×3 (06:23→18:40)
[2020-11-12] MEDS: BLOOD SUGAR DIAGNOSTIC STRIP TEST SCH ×3 (06:49→18:37)
[2020-11-12 07:59] LABS: BG BASE EXCESS 3.7 mmol/L (-2.0-2.0); BG CARBOXYHEMOGLOBIN 0.1 % (0.5-1.5); BG DEOXYHEMOGLOBIN 2.9 % (0.0-5.0); BG HCO3 ACT 28.2 mmol/L (22.0-26.0); BG METHEMOGLOBIN 0.3 % (0.0-1.5); BG OXYGEN SATURATION 97.1 % (92.0-98.5); BG OXYHEMOGLOBIN 96.7 % (94.0-97.0); BG PCO2 42.3 mmHg (35.0-45.0); BG PH 7.442 (7.350-7.450); BG PO2 91.9 mmHg (75.0-100.0); BG SAMPLE SITE RIGHT RADIAL; BG TOTAL HEMOGLOBIN 8.8 g/dL (12.0-18.0); BG VENT MODE VENT - SIMV
[2020-11-12] MEDS: MIDODRINE HCL 5MG TABLET PO SCH ×3 (08:55→18:37)
[2020-11-12] MEDS: ACETAMINOPHEN 650MG SUPP PR PRN (08:55)
[2020-11-12] MEDS: ACETYLCYSTEINE 100MG/ML 10% VIAL 4ML INH SCH ×2 (08:59→14:48)
[2020-11-12] MEDS: CLOTRIMAZOLE 1% CREAM 30GM TOP SCH ×2 (09:00→20:53)
[2020-11-12] MEDS: NYSTATIN POWDER 15GM TOP SCH ×3 (09:00→17:00)
[2020-11-12] MEDS ORDERED: DIATR MEGLU/DIATRIZOATE SOLN 30ML PO SCH (10:00)
[2020-11-12] MEDS: INSULIN GLARGINE UD 100 UNITS/ML SYR SUBCUT SCH ×2 (10:17→22:22)
[2020-11-12 10:29] LABS: PLATELET ESTIMATE NORMAL
[2020-11-12] MEDS: MEROPENEM 1,000 MG in SODIUM CHLORIDE 0.9% 100 ML IV SCH (18:36)
[2020-11-12] MEDS: PHENYLEPHRINE 100 MG in DEXT 5% WATER 240 ML IV PRN (20:01)
[2020-11-12] MEDS: FAT EMULSIONS 250 ML IV SCH (20:51)
[2020-11-12] MEDS: TOTAL PARENTERAL NUTRITION 1,500 ML IV SCH (20:51)
[2020-11-13] VITALS (103 sets, daily range): BP systolic -6–192; BP diastolic -9–85
[2020-11-13] MEDS: IPRATROPIUM/ALBUTEROL 0.5-3(2.5)MG/3ML NEB HHN SCH ×4 (00:20→20:26)
[2020-11-13] MEDS: METOCLOPRAMIDE HCL 10MG/2ML VIAL IV SCH ×4 (00:23→18:00)
[2020-11-13] MEDS: ACETAMINOPHEN 650MG/20.3ML UDC PO PRN (00:38)
[2020-11-13] MEDS: INSULIN LISPRO 100 UNITS/ML SUBCUT SCH ×4 (00:41→18:00)
[2020-11-13 05:01] LABS: CHLORIDE 90 mEq/L (98-107)
[2020-11-13 05:08] LABS: HEMATOCRIT. 25.8 % (36.0-48.0); HEMOGLOBIN. 8.4 g/dL (12.0-16.0); MEAN CORPUSCULAR HEMOGLOBIN 28.8 pg (28.0-32.0); MEAN CORPUSCULAR VOLUME 88.1 fL (81.0-99.0); MEAN PLATELET VOLUME 9.8 fl (7.4-10.4); PHOSPHORUS 1.3 mg/dL (2.5-4.9); PLATELET 101 x1000/uL (130-400); RED BLOOD CELL COUNT 2.93 mill/uL (4.2-5.4); RED CELL DISTRIBUTION WIDTH 20.4 % (11.6-14.6)
[2020-11-13] MEDS: FUROSEMIDE 40MG/4ML VIAL IVP SCH ×2 (06:02→18:00)
[2020-11-13] MEDS: PHENYLEPHRINE 100 MG in DEXT 5% WATER 240 ML IV PRN ×3 (06:10→20:14)
[2020-11-13] MEDS ORDERED: SODIUM PHOS,M-BASIC-D-BASIC 20 MM in DEXT 5% WATER 243.3333 ML IV ONE (07:00)
[2020-11-13] MEDS ORDERED: ALBUMIN HUMAN 12.5G/250ML (5%) IV PRN ×2 (08:15→09:00)
[2020-11-13] MEDS: ACETYLCYSTEINE 100MG/ML 10% VIAL 4ML INH SCH ×2 (08:19→16:55)
[2020-11-13 09:37] LABS: NUCLEATED RED BLOOD CELLS 2 /100 WBC; PLATELET ESTIMATE DECREASED
[2020-11-13] MEDS: MIDODRINE HCL 5MG TABLET PO SCH ×3 (09:54→17:00)
[2020-11-13] MEDS: NYSTATIN POWDER 15GM TOP SCH ×3 (09:55→17:00)
[2020-11-13] MEDS: INSULIN GLARGINE UD 100 UNITS/ML SYR SUBCUT SCH ×2 (09:55→22:06)
[2020-11-13] MEDS: CLOTRIMAZOLE 1% CREAM 30GM TOP SCH ×2 (09:56→21:33)
[2020-11-13 16:31] LABS: INR 1.4; PARTIAL THROMBOPLASTIN TIME 36.2 sec (23.4-31.0); PROTHROMBIN TIME 14.5 sec (9.6-11.0)
[2020-11-13] MEDS ORDERED: ALBUMIN HUMAN 25GM/500ML (5%) IV NR (17:00)
[2020-11-13] MEDS ORDERED: ROCURONIUM BROMIDE 10MG/ML VIAL 5ML IV ONE ×2 (17:53→19:00)
[2020-11-13] MEDS: BLOOD SUGAR DIAGNOSTIC STRIP TEST SCH (18:00)
[2020-11-13] MEDS ORDERED: POLYMYXIN B SULFATE 500000 UNITS/VIAL ONE (18:52)
[2020-11-13] MEDS ORDERED: CEFAZOLIN SODIUM 1000MG/VIAL ONE (18:53)
[2020-11-13] MEDS ORDERED: MIDAZOLAM HCL 5 MG/5 ML VIAL ONE (18:54)
[2020-11-13] MEDS ORDERED: METRONIDAZOLE 500 MG PREMIX 100 ML IV ONE (18:55)
[2020-11-13] MEDS ORDERED: PROPOFOL 200MG/20ML VIAL IV ONE (18:59)
[2020-11-13] MEDS ORDERED: NOREPINEPHRINE 8MG/250ML PMX 250ML IV NR (19:00)
[2020-11-13] MEDS ORDERED: PHENYLEPHRINE HCL 10 MG/ML 1ML (IV VIAL) IV ONE (19:09)
[2020-11-13] MEDS ORDERED: ALBUMIN HUMAN 12.5G/250ML (5%) IV ONE (19:12)
[2020-11-13] MEDS ORDERED: SODIUM BICARBONATE 4% (2.4MEQ) 5ML VIAL IV ONE (19:43)
[2020-11-13] MEDS ORDERED: SODIUM BICARBONATE 8.4% 1 MEQ/ML 50ML SYR IV ONE (19:43)
[2020-11-13 20:14] LABS: BG BASE EXCESS -2.3 mmol/L (-2.0-2.0); BG CARBOXYHEMOGLOBIN 0.3 % (0.5-1.5); BG DEOXYHEMOGLOBIN 5.8 % (0.0-5.0); BG FRACTION INSPIRED OXYGEN 40; BG HCO3 ACT 24.8 mmol/L (22.0-26.0); BG METHEMOGLOBIN 0.1 % (0.0-1.5); BG OXYGEN SATURATION 94.2 % (92.0-98.5); BG OXYHEMOGLOBIN 93.8 % (94.0-97.0); BG PCO2 54.1 mmHg (35.0-45.0); BG PH 7.279 (7.350-7.450); BG SAMPLE SITE ALINE; BG TOTAL HEMOGLOBIN 9.9 g/dL (12.0-18.0); BG VENT MODE VENT - SIMV
[2020-11-13 20:44] LABS: CHLORIDE 100 mEq/L (98-107)
[2020-11-13 20:47] LABS: INR 1.5; PARTIAL THROMBOPLASTIN TIME 36.9 sec (23.4-31.0); PROTHROMBIN TIME 15.2 sec (9.6-11.0)
[2020-11-13 20:48] LABS: HEMATOCRIT. 28.9 % (36.0-48.0); HEMOGLOBIN. 9.8 g/dL (12.0-16.0); MEAN CORPUSCULAR HEMOGLOBIN 28.4 pg (28.0-32.0); MEAN CORPUSCULAR VOLUME 83.7 fL (81.0-99.0); MEAN PLATELET VOLUME 8.9 fl (7.4-10.4); PLATELET 85 x1000/uL (130-400); RED BLOOD CELL COUNT 3.46 mill/uL (4.2-5.4); RED CELL DISTRIBUTION WIDTH 15.7 % (11.6-14.6)
[2020-11-13 21:25] LABS: PLATELET ESTIMATE DECREASED
[2020-11-13] MEDS: FLUCONAZOLE 200 MG/100ML BAG 100 ML IV SCH (21:35)
[2020-11-13] MEDS: MEROPENEM 1,000 MG in SODIUM CHLORIDE 0.9% 100 ML IV SCH (21:57)
[2020-11-13] MEDS: TOTAL PARENTERAL NUTRITION 1,500 ML IV SCH (22:00)
[2020-11-13 22:44] LABS: BG BASE EXCESS 1.5 mmol/L (-2.0-2.0); BG CARBOXYHEMOGLOBIN 0.1 % (0.5-1.5); BG DEOXYHEMOGLOBIN 2.1 % (0.0-5.0); BG FRACTION INSPIRED OXYGEN 50; BG HCO3 ACT 25.7 mmol/L (22.0-26.0); BG OXYGEN SATURATION 97.9 % (92.0-98.5); BG OXYHEMOGLOBIN 97.8 % (94.0-97.0); BG PCO2 38.9 mmHg (35.0-45.0); BG PH 7.438 (7.350-7.450); BG PO2 104.1 mmHg (75.0-100.0); BG SAMPLE SITE ALINE; BG TOTAL HEMOGLOBIN 10.3 g/dL (12.0-18.0); BG VENT MODE VENT - AC
[2020-11-14] VITALS (91 sets, daily range): BP systolic 61–175; BP diastolic 30–111
[2020-11-14] MEDS ORDERED: LORAZEPAM 2MG/ML CPJ IV PRN
[2020-11-14] MEDS: INSULIN LISPRO 100 UNITS/ML SUBCUT SCH ×5 (01:11→23:33)
[2020-11-14] MEDS: METOCLOPRAMIDE HCL 10MG/2ML VIAL IV SCH ×5 (01:12→23:51)
[2020-11-14] MEDS: MORPHINE SULFATE 2 MG/ML CPJ (NOT FOR IM USE) IV PRN ×3 (01:16→23:39)
[2020-11-14] MEDS: IPRATROPIUM/ALBUTEROL 0.5-3(2.5)MG/3ML NEB HHN SCH ×4 (02:04→21:45)
[2020-11-14 05:51] LABS: HEMATOCRIT. 26.7 % (36.0-48.0); HEMOGLOBIN. 9.3 g/dL (12.0-16.0); MEAN CORPUSCULAR HEMOGLOBIN 28.9 pg (28.0-32.0); MEAN CORPUSCULAR VOLUME 83.4 fL (81.0-99.0); PLATELET 90 x1000/uL (130-400); RED CELL DISTRIBUTION WIDTH 16.1 % (11.6-14.6)
[2020-11-14 05:59] LABS: PHOSPHORUS 3.5 mg/dL (2.5-4.9)
[2020-11-14] MEDS: BLOOD SUGAR DIAGNOSTIC STRIP TEST SCH ×4 (06:19→23:32)
[2020-11-14] MEDS: PHENYLEPHRINE 100 MG in DEXT 5% WATER 240 ML IV PRN ×3 (06:28→19:41)
[2020-11-14] MEDS: FUROSEMIDE 40MG/4ML VIAL IVP SCH ×2 (06:28→17:36)
[2020-11-14] MEDS: MIDODRINE HCL 5MG TABLET PO SCH ×4 (08:38→17:00)
[2020-11-14] MEDS: CLOTRIMAZOLE 1% CREAM 30GM TOP SCH ×2 (08:39→23:23)
[2020-11-14] MEDS: NYSTATIN POWDER 15GM TOP SCH ×3 (08:39→17:00)
[2020-11-14 08:41] LABS: BG BASE EXCESS -0.3 mmol/L (-2.0-2.0); BG CARBOXYHEMOGLOBIN 0.4 % (0.5-1.5); BG DEOXYHEMOGLOBIN 8.7 % (0.0-5.0); BG HCO3 ACT 25.4 mmol/L (22.0-26.0); BG METHEMOGLOBIN 0.3 % (0.0-1.5); BG OXYGEN SATURATION 91.2 % (92.0-98.5); BG OXYHEMOGLOBIN 90.6 % (94.0-97.0); BG PCO2 45.8 mmHg (35.0-45.0); BG PH 7.361 (7.350-7.450); BG PO2 60.3 mmHg (75.0-100.0); BG SAMPLE SITE RIGHT RADIAL; BG TOTAL HEMOGLOBIN 9.8 g/dL (12.0-18.0); BG VENT MODE VENT - AC
[2020-11-14] MEDS: PANTOPRAZOLE SODIUM 40 MG/VIAL IV SCH (08:44)
[2020-11-14] MEDS ORDERED: MAGNESIUM 2 G PREMIX 50 ML IV SCH (09:00)
[2020-11-14] MEDS: ACETYLCYSTEINE 100MG/ML 10% VIAL 4ML INH SCH (09:02)
[2020-11-14 09:40] LABS: PLATELET ESTIMATE DECREASED
[2020-11-14] MEDS: INSULIN GLARGINE UD 100 UNITS/ML SYR SUBCUT SCH ×2 (10:24→23:29)
[2020-11-14] MEDS: ACETAMINOPHEN 650MG SUPP PR PRN ×2 (10:34→21:32)
[2020-11-14] MEDS ORDERED: VANCOMYCIN 500 MG PREMIX 100 ML IV SCH (13:00)
[2020-11-14] MEDS: NOREPINEPHRINE 8 MG in DEXT 5% WATER 242 ML IV PRN ×2 (17:11→22:00)
[2020-11-14] MEDS: MEROPENEM 1,000 MG in SODIUM CHLORIDE 0.9% 100 ML IV SCH (21:32)
[2020-11-14 21:35] LABS: HEMATOCRIT 25.6 % (36.0-48.0); HEMOGLOBIN 8.7 g/dL (12.0-16.0); MEAN CORPUSCULAR HEMOGLOBIN 28.4 pg (28.0-32.0); MEAN CORPUSCULAR VOLUME 83.6 fL (81.0-99.0); PLATELET 112 x1000/uL (130-400); RED BLOOD CELL COUNT 3.06 mill/uL (4.2-5.4); RED CELL DISTRIBUTION WIDTH 16.6 % (11.6-14.6)
[2020-11-14] MEDS: FLUCONAZOLE 200 MG/100ML BAG 100 ML IV SCH (22:00)
[2020-11-14] MEDS: TOTAL PARENTERAL NUTRITION 1,500 ML IV SCH (23:25)
[2020-11-15] VITALS (88 sets, daily range): BP systolic 91–199; BP diastolic 44–117
[2020-11-15] MEDS: IPRATROPIUM/ALBUTEROL 0.5-3(2.5)MG/3ML NEB HHN SCH ×4 (01:59→20:13)
[2020-11-15] MEDS: PHENYLEPHRINE 100 MG in DEXT 5% WATER 240 ML IV PRN ×3 (02:00→16:13)
[2020-11-15] MEDS: ACETAMINOPHEN 650MG SUPP PR PRN (04:36)
[2020-11-15] MEDS: MORPHINE SULFATE 2 MG/ML CPJ (NOT FOR IM USE) IV PRN ×3 (04:36→17:34)
[2020-11-15 04:51] LABS: HEMATOCRIT. 24.9 % (36.0-48.0); HEMOGLOBIN. 8.5 g/dL (12.0-16.0); MEAN CORPUSCULAR HEMOGLOBIN 29.1 pg (28.0-32.0); MEAN CORPUSCULAR VOLUME 84.8 fL (81.0-99.0); PLATELET 108 x1000/uL (130-400); RED BLOOD CELL COUNT 2.94 mill/uL (4.2-5.4); RED CELL DISTRIBUTION WIDTH 16.7 % (11.6-14.6)
[2020-11-15 05:10] LABS: PHOSPHORUS 2.5 mg/dL (2.5-4.9)
[2020-11-15] MEDS: FUROSEMIDE 40MG/4ML VIAL IVP SCH (06:00)
[2020-11-15] MEDS: METOCLOPRAMIDE HCL 10MG/2ML VIAL IV SCH ×4 (06:52→23:07)
[2020-11-15] MEDS: BLOOD SUGAR DIAGNOSTIC STRIP TEST SCH ×4 (06:52→23:09)
[2020-11-15] MEDS: INSULIN LISPRO 100 UNITS/ML SUBCUT SCH ×4 (06:57→23:08)
[2020-11-15] MEDS: ACETYLCYSTEINE 100MG/ML 10% VIAL 4ML INH SCH ×2 (07:56→14:10)
[2020-11-15] MEDS: MIDODRINE HCL 5MG TABLET PO SCH ×3 (08:29→16:05)
[2020-11-15] MEDS: CLOTRIMAZOLE 1% CREAM 30GM TOP SCH ×2 (08:32→20:35)
[2020-11-15] MEDS: NYSTATIN POWDER 15GM TOP SCH ×3 (08:32→17:33)
[2020-11-15] MEDS: PANTOPRAZOLE SODIUM 40 MG/VIAL IV SCH (08:33)
[2020-11-15 08:50] LABS: NUCLEATED RED BLOOD CELLS 6 /100 WBC
[2020-11-15 08:51] LABS: PLATELET ESTIMATE DECREASED
[2020-11-15] MEDS: INSULIN GLARGINE UD 100 UNITS/ML SYR SUBCUT SCH ×2 (09:51→23:09)
[2020-11-15] MEDS ORDERED: MIDAZOLAM HCL 2 MG/2 ML VIAL ONE (13:21)
[2020-11-15] MEDS ORDERED: FENTANYL CITRATE/PF 50MCG/ML 2ML VIAL ONE (13:21)
[2020-11-15] MEDS ORDERED: POLYMYXIN B SULFATE 500000 UNITS/VIAL ONE (13:30)
[2020-11-15 14:36] LABS: HEMOGLOBIN. 13.7 g/dL (12.0-16.0); MEAN CORPUSCULAR HEMOGLOBIN 28.6 pg (28.0-32.0); MEAN CORPUSCULAR VOLUME 85.5 fL (81.0-99.0); MEAN PLATELET VOLUME 8.8 fl (7.4-10.4); PLATELET 92 x1000/uL (130-400); RED CELL DISTRIBUTION WIDTH 16.2 % (11.6-14.6)
[2020-11-15 14:50] LABS: INR 1.6; PARTIAL THROMBOPLASTIN TIME 40.2 sec (23.4-31.0); PROTHROMBIN TIME 16.2 sec (9.6-11.0)
[2020-11-15] MEDS ORDERED: BACITRACIN 15GM TUBE TOP ONE (14:56)
[2020-11-15] MEDS ORDERED: ROCURONIUM BROMIDE 10MG/ML VIAL 5ML IV ONE (14:58)
[2020-11-15 17:12] LABS: BG BASE EXCESS -4.3 mmol/L (-2.0-2.0); BG CARBOXYHEMOGLOBIN 0.4 % (0.5-1.5); BG DEOXYHEMOGLOBIN 3.8 % (0.0-5.0); BG HCO3 ACT 20.5 mmol/L (22.0-26.0); BG METHEMOGLOBIN 0.3 % (0.0-1.5); BG OXYGEN SATURATION 96.2 % (92.0-98.5); BG OXYHEMOGLOBIN 95.5 % (94.0-97.0); BG PCO2 36.8 mmHg (35.0-45.0); BG PH 7.363 (7.350-7.450); BG SAMPLE SITE ALINE; BG TOTAL HEMOGLOBIN 13.6 g/dL (12.0-18.0); BG VENT MODE VENT - AC
[2020-11-15] MEDS: NOREPINEPHRINE 8 MG in DEXT 5% WATER 242 ML IV PRN (17:36)
[2020-11-15 17:57] LABS: PLATELET ESTIMATE DECREASED
[2020-11-15] MEDS: MEROPENEM 1,000 MG in SODIUM CHLORIDE 0.9% 100 ML IV SCH (20:32)
[2020-11-15] MEDS: TOTAL PARENTERAL NUTRITION 1,500 ML IV SCH (20:32)
[2020-11-15] MEDS: FLUCONAZOLE 200 MG/100ML BAG 100 ML IV SCH (21:01)
[2020-11-16] VITALS (97 sets, daily range): BP systolic 75–163; BP diastolic 39–93
[2020-11-16] MEDS: IPRATROPIUM/ALBUTEROL 0.5-3(2.5)MG/3ML NEB HHN SCH ×4 (02:21→21:02)
[2020-11-16] MEDS: INSULIN LISPRO 100 UNITS/ML SUBCUT SCH ×4 (05:19→23:59)
[2020-11-16] MEDS: BLOOD SUGAR DIAGNOSTIC STRIP TEST SCH ×4 (05:19→23:59)
[2020-11-16] MEDS: METOCLOPRAMIDE HCL 10MG/2ML VIAL IV SCH ×4 (05:19→23:59)
[2020-11-16 05:24] LABS: HEMATOCRIT. 33.7 % (36.0-48.0); HEMOGLOBIN. 11.6 g/dL (12.0-16.0); MEAN CORPUSCULAR HEMOGLOBIN 28.7 pg (28.0-32.0); MEAN CORPUSCULAR VOLUME 83.3 fL (81.0-99.0); MEAN PLATELET VOLUME 8.8 fl (7.4-10.4); PLATELET 78 x1000/uL (130-400); RED BLOOD CELL COUNT 4.04 mill/uL (4.2-5.4); RED CELL DISTRIBUTION WIDTH 16.4 % (11.6-14.6)
[2020-11-16] MEDS ORDERED: PHENYLEPHRINE 100 MG in DEXT 5% WATER 240 ML IV PRN (07:49)
[2020-11-16] MEDS: ACETYLCYSTEINE 100MG/ML 10% VIAL 4ML INH SCH (08:21)
[2020-11-16] MEDS: MIDODRINE HCL 5MG TABLET PO SCH ×3 (08:37→15:49)
[2020-11-16] MEDS: NYSTATIN POWDER 15GM TOP SCH ×3 (08:56→17:31)
[2020-11-16] MEDS: CLOTRIMAZOLE 1% CREAM 30GM TOP SCH ×2 (08:56→20:36)
[2020-11-16] MEDS: PANTOPRAZOLE SODIUM 40 MG/VIAL IV SCH (08:56)
[2020-11-16] MEDS: INSULIN GLARGINE UD 100 UNITS/ML SYR SUBCUT SCH (08:57)
[2020-11-16 10:03] LABS: NUCLEATED RED BLOOD CELLS 3 /100 WBC
[2020-11-16 10:04] LABS: PLATELET ESTIMATE DECREASED
[2020-11-16] MEDS: PHENYLEPHRINE 100 MG in DEXT 5% WATER 240 ML IV PRN ×2 (15:51→22:45)
[2020-11-16] MEDS: FAT EMULSIONS 250 ML IV SCH (20:29)
[2020-11-16] MEDS: MEROPENEM 1,000 MG in SODIUM CHLORIDE 0.9% 100 ML IV SCH (20:29)
[2020-11-16] MEDS: FLUCONAZOLE 200 MG/100ML BAG 100 ML IV SCH (20:30)
[2020-11-16] MEDS: TOTAL PARENTERAL NUTRITION 1,500 ML IV SCH (20:34)
[2020-11-17] VITALS (99 sets, daily range): BP systolic 83–145; BP diastolic 37–97
[2020-11-17] MEDS: INSULIN GLARGINE UD 100 UNITS/ML SYR SUBCUT SCH ×4 (00:02→22:00)
[2020-11-17] MEDS: IPRATROPIUM/ALBUTEROL 0.5-3(2.5)MG/3ML NEB HHN SCH ×4 (01:33→20:14)
[2020-11-17] MEDS: MORPHINE SULFATE 2 MG/ML CPJ (NOT FOR IM USE) IV PRN ×2 (02:09→15:57)
[2020-11-17] MEDS: INSULIN LISPRO 100 UNITS/ML SUBCUT SCH ×3 (06:00→17:09)
[2020-11-17 06:08] LABS: BASOPHILS % 0.4 % (0.0-2.0); EOSINOPHILS % 0.8 % (0.0-5.0); HEMATOCRIT. 33.6 % (36.0-48.0); HEMOGLOBIN. 11.2 g/dL (12.0-16.0); LYMPHOCYTES % 17.8 % (20.0-50.0); MEAN CORPUSCULAR HEMOGLOBIN 28.5 pg (28.0-32.0); MEAN CORPUSCULAR VOLUME 85.5 fL (81.0-99.0); PLATELET 81 x1000/uL (130-400); RED BLOOD CELL COUNT 3.93 mill/uL (4.2-5.4); RED CELL DISTRIBUTION WIDTH 16.5 % (11.6-14.6)
[2020-11-17] MEDS: BLOOD SUGAR DIAGNOSTIC STRIP TEST SCH ×3 (06:10→17:09)
[2020-11-17] MEDS: METOCLOPRAMIDE HCL 10MG/2ML VIAL IV SCH ×3 (06:10→17:08)
[2020-11-17] MEDS: PHENYLEPHRINE 100 MG in DEXT 5% WATER 240 ML IV PRN ×3 (06:12→22:43)
[2020-11-17 07:42] LABS: BG BASE EXCESS -1.9 mmol/L (-2.0-2.0); BG CARBOXYHEMOGLOBIN 0.4 % (0.5-1.5); BG DEOXYHEMOGLOBIN 3.2 % (0.0-5.0); BG HCO3 ACT 22.5 mmol/L (22.0-26.0); BG METHEMOGLOBIN 0.3 % (0.0-1.5); BG OXYGEN SATURATION 96.8 % (92.0-98.5); BG OXYHEMOGLOBIN 96.1 % (94.0-97.0); BG PH 7.401 (7.350-7.450); BG SAMPLE SITE ALINE; BG TOTAL HEMOGLOBIN 11.4 g/dL (12.0-18.0); BG VENT MODE VENT - AC
[2020-11-17] MEDS: MIDODRINE HCL 5MG TABLET PO SCH ×3 (08:01→16:36)
[2020-11-17] MEDS: PANTOPRAZOLE SODIUM 40 MG/VIAL IV SCH (08:57)
[2020-11-17] MEDS: NYSTATIN POWDER 15GM TOP SCH ×3 (08:58→17:08)
[2020-11-17] MEDS: CLOTRIMAZOLE 1% CREAM 30GM TOP SCH ×2 (08:58→21:00)
[2020-11-17] MEDS: PHYTONADIONE 10MG/ML AMP SUBCUT SCH (09:00)
[2020-11-17] MEDS ORDERED: VANCOMYCIN 500 MG PREMIX 100 ML IV NR (10:00)
[2020-11-17] MEDS: DEXTROSE 50% WATER 50ML SYRINGE IV PRN ×3 (12:46→23:57)
[2020-11-17] MEDS: FLUCONAZOLE 200 MG/100ML BAG 100 ML IV SCH (21:00)
[2020-11-17] MEDS: MEROPENEM 1,000 MG in SODIUM CHLORIDE 0.9% 100 ML IV SCH (21:00)
[2020-11-17] MEDS: TOTAL PARENTERAL NUTRITION 1,500 ML IV SCH (21:00)
[2020-11-18] VITALS (95 sets, daily range): BP systolic 74–161; BP diastolic 34–103
[2020-11-18] MEDS: BLOOD SUGAR DIAGNOSTIC STRIP TEST SCH ×4 (00:06→17:17)
[2020-11-18] MEDS: METOCLOPRAMIDE HCL 10MG/2ML VIAL IV SCH ×4 (00:16→17:17)
[2020-11-18] MEDS: IPRATROPIUM/ALBUTEROL 0.5-3(2.5)MG/3ML NEB HHN SCH ×4 (02:41→20:15)
[2020-11-18 06:00] LABS: BASOPHILS % 0.7 % (0.0-2.0); EOSINOPHILS % 1.1 % (0.0-5.0); HEMATOCRIT. 32.8 % (36.0-48.0); MEAN CORPUSCULAR HEMOGLOBIN 28.9 pg (28.0-32.0); MEAN CORPUSCULAR VOLUME 86.2 fL (81.0-99.0); MEAN PLATELET VOLUME 9.1 fl (7.4-10.4); MONOCYTES % 13.6 % (2.0-8.0); NEUTROPHILS % 66.6 % (40.0-76.0); PLATELET 95 x1000/uL (130-400); RED CELL DISTRIBUTION WIDTH 16.7 % (11.6-14.6)
[2020-11-18] MEDS: INSULIN LISPRO 100 UNITS/ML SUBCUT SCH ×4 (06:00→17:43)
[2020-11-18] MEDS: PHENYLEPHRINE 100 MG in DEXT 5% WATER 240 ML IV PRN ×2 (06:04→15:19)
[2020-11-18] MEDS: DEXTROSE 50% WATER 50ML SYRINGE IV PRN (06:28)
[2020-11-18 08:39] LABS: BG BASE EXCESS -4.4 mmol/L (-2.0-2.0); BG CARBOXYHEMOGLOBIN 0.2 % (0.5-1.5); BG DEOXYHEMOGLOBIN 3.2 % (0.0-5.0); BG FRACTION INSPIRED OXYGEN 40; BG HCO3 ACT 19.4 mmol/L (22.0-26.0); BG METHEMOGLOBIN 0.3 % (0.0-1.5); BG OXYGEN SATURATION 96.8 % (92.0-98.5); BG OXYHEMOGLOBIN 96.3 % (94.0-97.0); BG PCO2 31.3 mmHg (35.0-45.0); BG PH 7.409 (7.350-7.450); BG PO2 87.2 mmHg (75.0-100.0); BG SAMPLE SITE ALINE; BG TOTAL HEMOGLOBIN 11.1 g/dL (12.0-18.0); BG VENT MODE VENT - AC
[2020-11-18] MEDS: MIDODRINE HCL 5MG TABLET PO SCH ×3 (09:04→17:47)
[2020-11-18] MEDS: PANTOPRAZOLE SODIUM 40 MG/VIAL IV SCH (09:04)
[2020-11-18] MEDS: CLOTRIMAZOLE 1% CREAM 30GM TOP SCH ×2 (09:04→20:44)
[2020-11-18] MEDS: NYSTATIN POWDER 15GM TOP SCH ×3 (09:04→17:48)
[2020-11-18] MEDS: MORPHINE SULFATE 2 MG/ML CPJ (NOT FOR IM USE) IV PRN (11:57)
[2020-11-18] MEDS: MICAFUNGIN 100 MG in SODIUM CHLORIDE 0.9% 100 ML IV SCH (18:30)
[2020-11-18] MEDS: MEROPENEM 1,000 MG in SODIUM CHLORIDE 0.9% 100 ML IV SCH (20:40)
[2020-11-18] MEDS: TOTAL PARENTERAL NUTRITION 1,500 ML IV SCH (20:42)
[2020-11-19] VITALS (87 sets, daily range): BP systolic 65–139; BP diastolic 24–85
[2020-11-19] MEDS: BLOOD SUGAR DIAGNOSTIC STRIP TEST SCH ×4 (00:48→17:19)
[2020-11-19] MEDS: METOCLOPRAMIDE HCL 10MG/2ML VIAL IV SCH ×4 (00:48→17:24)
[2020-11-19] MEDS: IPRATROPIUM/ALBUTEROL 0.5-3(2.5)MG/3ML NEB HHN SCH ×4 (02:17→20:26)
[2020-11-19] MEDS: INSULIN LISPRO 100 UNITS/ML SUBCUT SCH ×4 (05:59→17:25)
[2020-11-19 06:00] LABS: HEMATOCRIT 30.8 % (36.0-48.0); HEMOGLOBIN 10.3 g/dL (12.0-16.0); INR 1.3; MEAN CORPUSCULAR HEMOGLOBIN 29.1 pg (28.0-32.0); MEAN CORPUSCULAR VOLUME 87.3 fL (81.0-99.0); PLATELET 78 x1000/uL (130-400); PROTHROMBIN TIME 14.1 sec (9.6-11.0); RED BLOOD CELL COUNT 3.53 mill/uL (4.2-5.4); RED CELL DISTRIBUTION WIDTH 17.3 % (11.6-14.6)
[2020-11-19 06:05] LABS: CHLORIDE 110 mEq/L (98-107)
[2020-11-19] MEDS: MIDODRINE HCL 5MG TABLET PO SCH ×3 (08:57→17:24)
[2020-11-19] MEDS: PANTOPRAZOLE SODIUM 40 MG/VIAL IV SCH (08:57)
[2020-11-19] MEDS: NYSTATIN POWDER 15GM TOP SCH ×3 (11:08→17:24)
[2020-11-19] MEDS: CLOTRIMAZOLE 1% CREAM 30GM TOP SCH ×2 (11:09→20:40)
[2020-11-19] MEDS: MICAFUNGIN 100 MG in SODIUM CHLORIDE 0.9% 100 ML IV SCH (13:48)
[2020-11-19] MEDS: ACETAMINOPHEN 650MG/20.3ML UDC PO PRN (13:57)
[2020-11-19] MEDS: PHENYLEPHRINE 100 MG in DEXT 5% WATER 240 ML IV PRN (13:57)
[2020-11-19] MEDS: FAT EMULSIONS 250 ML IV SCH (20:44)
[2020-11-19] MEDS: TOTAL PARENTERAL NUTRITION 1,500 ML IV SCH (20:45)
[2020-11-20] VITALS (110 sets, daily range): BP systolic 74–146; BP diastolic 31–114
[2020-11-20] MEDS: BLOOD SUGAR DIAGNOSTIC STRIP TEST SCH ×4 (00:10→17:50)
[2020-11-20] MEDS: METOCLOPRAMIDE HCL 10MG/2ML VIAL IV SCH ×4 (00:21→17:40)
[2020-11-20] MEDS: MORPHINE SULFATE 2 MG/ML CPJ (NOT FOR IM USE) IV PRN ×2 (00:22→05:22)
[2020-11-20] MEDS: INSULIN LISPRO 100 UNITS/ML SUBCUT SCH ×4 (00:23→17:53)
[2020-11-20] MEDS: IPRATROPIUM/ALBUTEROL 0.5-3(2.5)MG/3ML NEB HHN SCH ×4 (01:37→21:00)
[2020-11-20 05:26] LABS: BASOPHILS % 0.7 % (0.0-2.0); EOSINOPHILS % 0.9 % (0.0-5.0); HEMATOCRIT. 31.9 % (36.0-48.0); HEMOGLOBIN. 10.4 g/dL (12.0-16.0); LYMPHOCYTES % 13.4 % (20.0-50.0); MEAN CORPUSCULAR VOLUME 88.7 fL (81.0-99.0); MEAN PLATELET VOLUME 9.5 fl (7.4-10.4); MONOCYTES % 7.3 % (2.0-8.0); NEUTROPHILS % 77.7 % (40.0-76.0); PLATELET 92 x1000/uL (130-400); RED BLOOD CELL COUNT 3.59 mill/uL (4.2-5.4)
[2020-11-20 05:46] LABS: PHOSPHORUS 2.4 mg/dL (2.5-4.9)
[2020-11-20] MEDS: PANTOPRAZOLE SODIUM 40 MG/VIAL IV SCH (09:03)
[2020-11-20] MEDS: MIDODRINE HCL 5MG TABLET PO SCH ×3 (09:05→17:41)
[2020-11-20] MEDS: NYSTATIN POWDER 15GM TOP SCH ×3 (09:05→17:40)
[2020-11-20] MEDS: CLOTRIMAZOLE 1% CREAM 30GM TOP SCH ×2 (09:06→22:01)
[2020-11-20] MEDS ORDERED: MAGNESIUM 2 G PREMIX 50 ML IV NR (11:00)
[2020-11-20] MEDS: PHENYLEPHRINE 100 MG in DEXT 5% WATER 240 ML IV PRN (14:22)
[2020-11-20] MEDS: MICAFUNGIN 100 MG in SODIUM CHLORIDE 0.9% 100 ML IV SCH (14:24)
[2020-11-20] MEDS: TOTAL PARENTERAL NUTRITION 1,500 ML IV SCH (22:01)
[2020-11-21] VITALS (96 sets, daily range): BP systolic 58–162; BP diastolic 30–88
[2020-11-21] MEDS: BLOOD SUGAR DIAGNOSTIC STRIP TEST SCH ×5 (00:46→23:14)
[2020-11-21] MEDS: METOCLOPRAMIDE HCL 10MG/2ML VIAL IV SCH ×5 (00:53→23:12)
[2020-11-21] MEDS: INSULIN LISPRO 100 UNITS/ML SUBCUT SCH ×5 (00:53→23:14)
[2020-11-21] MEDS: IPRATROPIUM/ALBUTEROL 0.5-3(2.5)MG/3ML NEB HHN SCH ×4 (01:04→19:51)
[2020-11-21] MEDS: PHENYLEPHRINE 100 MG in DEXT 5% WATER 240 ML IV PRN ×2 (01:16→12:46)
[2020-11-21] MEDS: MORPHINE SULFATE 2 MG/ML CPJ (NOT FOR IM USE) IV PRN (05:30)
[2020-11-21 05:58] LABS: BASOPHILS % 0.8 % (0.0-2.0); EOSINOPHILS % 1.4 % (0.0-5.0); HEMATOCRIT. 31.5 % (36.0-48.0); HEMOGLOBIN. 10.5 g/dL (12.0-16.0); LYMPHOCYTES % 19.5 % (20.0-50.0); MEAN CORPUSCULAR HEMOGLOBIN 29.5 pg (28.0-32.0); MEAN CORPUSCULAR VOLUME 88.5 fL (81.0-99.0); MEAN PLATELET VOLUME 9.3 fl (7.4-10.4); MONOCYTES % 13.4 % (2.0-8.0); NEUTROPHILS % 64.9 % (40.0-76.0); PLATELET 104 x1000/uL (130-400); RED BLOOD CELL COUNT 3.56 mill/uL (4.2-5.4); RED CELL DISTRIBUTION WIDTH 18.3 % (11.6-14.6)
[2020-11-21] MEDS: MIDODRINE HCL 5MG TABLET PO SCH ×3 (08:18→17:07)
[2020-11-21] MEDS: PANTOPRAZOLE SODIUM 40 MG/VIAL IV SCH (08:18)
[2020-11-21] MEDS: NYSTATIN POWDER 15GM TOP SCH ×3 (08:19→17:47)
[2020-11-21] MEDS: CLOTRIMAZOLE 1% CREAM 30GM TOP SCH ×2 (08:19→21:00)
[2020-11-21] MEDS: INSULIN GLARGINE UD 100 UNITS/ML SYR SUBCUT SCH ×2 (11:32→23:00)
[2020-11-21] MEDS: MICAFUNGIN 100 MG in SODIUM CHLORIDE 0.9% 100 ML IV SCH (13:07)
[2020-11-21] MEDS: TOTAL PARENTERAL NUTRITION 1,500 ML IV SCH (21:01)
[2020-11-22] VITALS (96 sets, daily range): BP systolic 55–151; BP diastolic 27–115
[2020-11-22] MEDS: IPRATROPIUM/ALBUTEROL 0.5-3(2.5)MG/3ML NEB HHN SCH ×4 (00:24→20:50)
[2020-11-22] MEDS: MORPHINE SULFATE 2 MG/ML CPJ (NOT FOR IM USE) IV PRN (01:26)
[2020-11-22] MEDS: PHENYLEPHRINE 100 MG in DEXT 5% WATER 240 ML IV PRN ×2 (01:59→12:56)
[2020-11-22 05:03] LABS: HEMATOCRIT. 32.9 % (36.0-48.0); HEMOGLOBIN. 10.7 g/dL (12.0-16.0); MEAN CORPUSCULAR HEMOGLOBIN 29.6 pg (28.0-32.0); MEAN CORPUSCULAR VOLUME 91.1 fL (81.0-99.0); MEAN PLATELET VOLUME 9.3 fl (7.4-10.4); PLATELET 138 x1000/uL (130-400); RED BLOOD CELL COUNT 3.61 mill/uL (4.2-5.4); RED CELL DISTRIBUTION WIDTH 19.6 % (11.6-14.6)
[2020-11-22] MEDS: METOCLOPRAMIDE HCL 10MG/2ML VIAL IV SCH ×3 (05:35→18:17)
[2020-11-22] MEDS: INSULIN LISPRO 100 UNITS/ML SUBCUT SCH ×3 (05:46→18:19)
[2020-11-22] MEDS: BLOOD SUGAR DIAGNOSTIC STRIP TEST SCH ×3 (05:46→18:25)
[2020-11-22 05:48] LABS: PHOSPHORUS 1.7 mg/dL (2.5-4.9)
[2020-11-22] MEDS ORDERED: INSULIN REGULAR (HUMULIN R) 300UNITS/3ML VIAL IV NR (08:30)
[2020-11-22] MEDS ORDERED: DEXTROSE 50% WATER 50ML SYRINGE IV NR (08:30)
[2020-11-22] MEDS ORDERED: DEXT 10% WATER 1,000 ML IV SCH (08:45)
[2020-11-22] MEDS ORDERED: SODIUM PHOS,M-BASIC-D-BASIC 20 MM in DEXT 5% WATER 243.3333 ML IV NR (09:30)
[2020-11-22] MEDS: MIDODRINE HCL 5MG TABLET PO SCH ×3 (09:38→17:00)
[2020-11-22] MEDS: PANTOPRAZOLE SODIUM 40 MG/VIAL IV SCH (09:38)
[2020-11-22] MEDS: ACETAMINOPHEN 650MG/20.3ML UDC PO PRN (09:38)
[2020-11-22] MEDS: INSULIN GLARGINE UD 100 UNITS/ML SYR SUBCUT SCH ×2 (09:39→21:02)
[2020-11-22] MEDS: CLOTRIMAZOLE 1% CREAM 30GM TOP SCH ×2 (09:40→21:01)
[2020-11-22] MEDS: NYSTATIN POWDER 15GM TOP SCH ×3 (09:40→17:00)
[2020-11-22 11:10] LABS: PLATELET ESTIMATE NORMAL
[2020-11-22] MEDS ORDERED: MAGNESIUM 2 G PREMIX 50 ML IV NR (12:00)
[2020-11-22] MEDS: MICAFUNGIN 100 MG in SODIUM CHLORIDE 0.9% 100 ML IV SCH (14:00)
[2020-11-22] MEDS: TOTAL PARENTERAL NUTRITION 1,500 ML IV SCH (21:03)
[2020-11-22] MEDS: MEROPENEM 1,000 MG in SODIUM CHLORIDE 0.9% 100 ML IV SCH (21:28)
[2020-11-23] VITALS (99 sets, daily range): BP systolic 61–145; BP diastolic 32–105
[2020-11-23] MEDS: INSULIN LISPRO 100 UNITS/ML SUBCUT SCH ×4 (00:01→18:00)
[2020-11-23] MEDS: BLOOD SUGAR DIAGNOSTIC STRIP TEST SCH ×4 (00:01→18:36)
[2020-11-23] MEDS: PHENYLEPHRINE 100 MG in DEXT 5% WATER 240 ML IV PRN ×2 (00:55→16:05)
[2020-11-23] MEDS: IPRATROPIUM/ALBUTEROL 0.5-3(2.5)MG/3ML NEB HHN SCH ×4 (02:12→22:09)
[2020-11-23] MEDS: METOCLOPRAMIDE HCL 10MG/2ML VIAL IV SCH ×5 (05:13→23:14)
[2020-11-23 05:48] LABS: BASOPHILS % 0.6 % (0.0-2.0); EOSINOPHILS % 1.5 % (0.0-5.0); HEMOGLOBIN. 10.3 g/dL (12.0-16.0); LYMPHOCYTES % 13.4 % (20.0-50.0); MEAN CORPUSCULAR HEMOGLOBIN 29.3 pg (28.0-32.0); MEAN CORPUSCULAR VOLUME 88.6 fL (81.0-99.0); MONOCYTES % 12.4 % (2.0-8.0); NEUTROPHILS % 72.1 % (40.0-76.0); PLATELET 115 x1000/uL (130-400)
[2020-11-23 06:56] LABS: PHOSPHORUS 4.4 mg/dL (2.5-4.9)
[2020-11-23] MEDS: MIDODRINE HCL 5MG TABLET PO SCH ×3 (09:00→17:44)
[2020-11-23] MEDS: PANTOPRAZOLE SODIUM 40 MG/VIAL IV SCH (09:03)
[2020-11-23] MEDS: CLOTRIMAZOLE 1% CREAM 30GM TOP SCH ×2 (09:19→21:29)
[2020-11-23] MEDS: NYSTATIN POWDER 15GM TOP SCH ×3 (09:19→18:05)
[2020-11-23] MEDS: INSULIN GLARGINE UD 100 UNITS/ML SYR SUBCUT SCH ×2 (11:42→21:28)
[2020-11-23] MEDS: MEROPENEM 1,000 MG in SODIUM CHLORIDE 0.9% 100 ML IV SCH (21:26)
[2020-11-23] MEDS: TOTAL PARENTERAL NUTRITION 1,500 ML IV SCH ×3 (21:36→21:51)
[2020-11-23] MEDS: FAT EMULSIONS 250 ML IV SCH (21:43)
[2020-11-24] VITALS (97 sets, daily range): BP systolic 79–135; BP diastolic 35–76
[2020-11-24] MEDS: IPRATROPIUM/ALBUTEROL 0.5-3(2.5)MG/3ML NEB HHN SCH ×3 (01:19→20:28)
[2020-11-24 05:52] LABS: BASOPHILS % 0.4 % (0.0-2.0); EOSINOPHILS % 1.2 % (0.0-5.0); HEMATOCRIT. 31.7 % (36.0-48.0); HEMOGLOBIN. 10.6 g/dL (12.0-16.0); LYMPHOCYTES % 16.5 % (20.0-50.0); MEAN CORPUSCULAR HEMOGLOBIN 29.5 pg (28.0-32.0); MEAN CORPUSCULAR VOLUME 87.9 fL (81.0-99.0); MEAN PLATELET VOLUME 9.6 fl (7.4-10.4); MONOCYTES % 10.8 % (2.0-8.0); NEUTROPHILS % 71.1 % (40.0-76.0); PLATELET 97 x1000/uL (130-400); RED CELL DISTRIBUTION WIDTH 19.4 % (11.6-14.6)
[2020-11-24] MEDS: BLOOD SUGAR DIAGNOSTIC STRIP TEST SCH ×4 (06:06→18:19)
[2020-11-24] MEDS: METOCLOPRAMIDE HCL 10MG/2ML VIAL IV SCH ×3 (06:12→18:27)
[2020-11-24] MEDS: INSULIN LISPRO 100 UNITS/ML SUBCUT SCH ×4 (06:13→18:27)
[2020-11-24] MEDS: PANTOPRAZOLE SODIUM 40 MG/VIAL IV SCH (08:28)
[2020-11-24] MEDS: MIDODRINE HCL 5MG TABLET PO SCH ×3 (08:28→18:28)
[2020-11-24] MEDS: NYSTATIN POWDER 15GM TOP SCH ×3 (08:29→18:28)
[2020-11-24] MEDS: CLOTRIMAZOLE 1% CREAM 30GM TOP SCH ×2 (08:29→21:53)
[2020-11-24] MEDS ORDERED: DOPAMINE 400MG/250ML PREMIX 250 ML IV ONE (10:30)
[2020-11-24] MEDS: INSULIN GLARGINE UD 100 UNITS/ML SYR SUBCUT SCH ×2 (10:44→21:58)
[2020-11-24] MEDS: ACETAMINOPHEN 650MG/20.3ML UDC PO PRN (14:22)
[2020-11-24] MEDS: PHENYLEPHRINE 100 MG in DEXT 5% WATER 240 ML IV PRN (15:30)
[2020-11-24] MEDS: MEROPENEM 1,000 MG in SODIUM CHLORIDE 0.9% 100 ML IV SCH (21:51)
[2020-11-24] MEDS: TOTAL PARENTERAL NUTRITION 1,500 ML IV SCH (21:57)
[2020-11-25] VITALS (114 sets, daily range): BP systolic 61–146; BP diastolic 37–105
[2020-11-25] MEDS: IPRATROPIUM/ALBUTEROL 0.5-3(2.5)MG/3ML NEB HHN SCH ×4 (00:45→20:08)
[2020-11-25 06:03] LABS: BASOPHILS % 0.4 % (0.0-2.0); EOSINOPHILS % 1.8 % (0.0-5.0); HEMATOCRIT. 30.4 % (36.0-48.0); HEMOGLOBIN. 10.1 g/dL (12.0-16.0); LYMPHOCYTES % 16.6 % (20.0-50.0); MEAN CORPUSCULAR HEMOGLOBIN 29.3 pg (28.0-32.0); MEAN PLATELET VOLUME 9.5 fl (7.4-10.4); MONOCYTES % 12.9 % (2.0-8.0); NEUTROPHILS % 68.3 % (40.0-76.0); PLATELET 106 x1000/uL (130-400); RED BLOOD CELL COUNT 3.46 mill/uL (4.2-5.4); RED CELL DISTRIBUTION WIDTH 19.6 % (11.6-14.6)
[2020-11-25] MEDS: METOCLOPRAMIDE HCL 10MG/2ML VIAL IV SCH ×4 (06:22→17:09)
[2020-11-25] MEDS: BLOOD SUGAR DIAGNOSTIC STRIP TEST SCH ×4 (06:23→18:00)
[2020-11-25] MEDS: INSULIN LISPRO 100 UNITS/ML SUBCUT SCH ×4 (06:23→18:20)
[2020-11-25] MEDS ORDERED: TOTAL PARENTERAL NUTRITION 1,500 ML IV SCH (08:30)
[2020-11-25] MEDS: MIDODRINE HCL 5MG TABLET PO SCH ×3 (09:13→17:10)
[2020-11-25] MEDS: PANTOPRAZOLE SODIUM 40 MG/VIAL IV SCH (09:13)
[2020-11-25] MEDS: CLOTRIMAZOLE 1% CREAM 30GM TOP SCH ×2 (09:14→21:05)
[2020-11-25] MEDS: INSULIN GLARGINE UD 100 UNITS/ML SYR SUBCUT SCH ×2 (09:14→22:02)
[2020-11-25] MEDS: NYSTATIN POWDER 15GM TOP SCH ×3 (09:15→17:19)
[2020-11-25] MEDS: DOPAMINE 400MG/250ML PREMIX 250 ML IV PRN ×2 (17:19→22:02)
[2020-11-25] MEDS: MEROPENEM 1,000 MG in SODIUM CHLORIDE 0.9% 100 ML IV SCH (21:04)
[2020-11-25] MEDS: TOTAL PARENTERAL NUTRITION 1,500 ML IV SCH (21:05)
[2020-11-25] MEDS: ACETAMINOPHEN 650MG/20.3ML UDC PO PRN (21:05)
[2020-11-26] VITALS (74 sets, daily range): BP systolic 76–158; BP diastolic 46–90
[2020-11-26] MEDS: IPRATROPIUM/ALBUTEROL 0.5-3(2.5)MG/3ML NEB HHN SCH ×4 (00:09→20:31)
[2020-11-26] MEDS: BLOOD SUGAR DIAGNOSTIC STRIP TEST SCH ×4 (00:52→18:14)
[2020-11-26] MEDS: METOCLOPRAMIDE HCL 10MG/2ML VIAL IV SCH ×4 (00:58→18:05)
[2020-11-26] MEDS: INSULIN LISPRO 100 UNITS/ML SUBCUT SCH ×4 (00:59→18:17)
[2020-11-26] MEDS: DOPAMINE 400MG/250ML PREMIX 250 ML IV PRN ×3 (03:05→23:35)
[2020-11-26 04:34] LABS: BASOPHILS % 0.4 % (0.0-2.0); HEMOGLOBIN. 10.4 g/dL (12.0-16.0); LYMPHOCYTES % 16.5 % (20.0-50.0); MEAN CORPUSCULAR VOLUME 89.5 fL (81.0-99.0); MEAN PLATELET VOLUME 9.3 fl (7.4-10.4); MONOCYTES % 13.3 % (2.0-8.0); NEUTROPHILS % 67.8 % (40.0-76.0); PLATELET 92 x1000/uL (130-400); RED BLOOD CELL COUNT 3.47 mill/uL (4.2-5.4); RED CELL DISTRIBUTION WIDTH 20.1 % (11.6-14.6)
[2020-11-26 08:17] LABS: BG BASE EXCESS -7.1 mmol/L (-2.0-2.0); BG CARBOXYHEMOGLOBIN 1.2 % (0.5-1.5); BG DEOXYHEMOGLOBIN 1.4 % (0.0-5.0); BG HCO3 ACT 17.4 mmol/L (22.0-26.0); BG METHEMOGLOBIN 0.2 % (0.0-1.5); BG OXYGEN SATURATION 98.6 % (92.0-98.5); BG OXYHEMOGLOBIN 97.2 % (94.0-97.0); BG PCO2 31.3 mmHg (35.0-45.0); BG PH 7.363 (7.350-7.450); BG PO2 121.6 mmHg (75.0-100.0); BG SAMPLE SITE RIGHT RADIAL; BG VENT MODE VENT - AC
[2020-11-26] MEDS: PANTOPRAZOLE SODIUM 40 MG/VIAL IV SCH (08:33)
[2020-11-26] MEDS: MIDODRINE HCL 5MG TABLET PO SCH ×3 (08:34→18:05)
[2020-11-26] MEDS: NYSTATIN POWDER 15GM TOP SCH ×3 (08:34→18:03)
[2020-11-26] MEDS: CLOTRIMAZOLE 1% CREAM 30GM TOP SCH ×2 (08:34→20:23)
[2020-11-26] MEDS ORDERED: POTASSIUM CHLORIDE INJ 40 MEQ in DEXT 5% WATER 250 ML IV ONE (09:00)
[2020-11-26] MEDS: INSULIN GLARGINE UD 100 UNITS/ML SYR SUBCUT SCH ×2 (11:12→21:41)
[2020-11-26] MEDS: FAT EMULSIONS 250 ML IV SCH (20:22)
[2020-11-26] MEDS: MEROPENEM 1,000 MG in SODIUM CHLORIDE 0.9% 100 ML IV SCH (20:22)
[2020-11-26] MEDS: TOTAL PARENTERAL NUTRITION 1,500 ML IV SCH (20:23)
[2020-11-27] VITALS (12 sets, daily range): BP systolic 79–120; BP diastolic 39–70
[2020-11-27] MEDS: IPRATROPIUM/ALBUTEROL 0.5-3(2.5)MG/3ML NEB HHN SCH ×3 (00:05→20:19)
[2020-11-27] MEDS: BLOOD SUGAR DIAGNOSTIC STRIP TEST SCH ×5 (00:09→23:36)
[2020-11-27] MEDS: METOCLOPRAMIDE HCL 10MG/2ML VIAL IV SCH ×5 (00:10→23:36)
[2020-11-27] MEDS: ACETAMINOPHEN 650MG/20.3ML UDC PO PRN ×2 (01:13→23:41)
[2020-11-27] MEDS: INSULIN LISPRO 100 UNITS/ML SUBCUT SCH ×5 (06:33→23:36)
[2020-11-27] MEDS: MIDODRINE HCL 5MG TABLET PO SCH ×3 (09:12→17:36)
[2020-11-27] MEDS: PANTOPRAZOLE SODIUM 40 MG/VIAL IV SCH (09:22)
[2020-11-27] MEDS: DOPAMINE 400MG/250ML PREMIX 250 ML IV PRN ×2 (10:38→19:04)
[2020-11-27] MEDS: INSULIN GLARGINE UD 100 UNITS/ML SYR SUBCUT SCH ×2 (10:40→21:39)
[2020-11-27] MEDS: CLOTRIMAZOLE 1% CREAM 30GM TOP SCH ×2 (10:44→20:01)
[2020-11-27] MEDS: NYSTATIN POWDER 15GM TOP SCH ×3 (10:44→17:35)
[2020-11-27] MEDS ORDERED: VANCOMYCIN 1250MG in DEXTROSE 5% WATER 250ML IV NR (20:00)
[2020-11-27] MEDS: TOTAL PARENTERAL NUTRITION 1,500 ML IV SCH (20:02)
[2020-11-27] MEDS: MEROPENEM 1,000 MG in SODIUM CHLORIDE 0.9% 100 ML IV SCH (21:38)
[2020-11-28] VITALS (12 sets, daily range): BP systolic 96–139; BP diastolic 51–68
[2020-11-28] MEDS: IPRATROPIUM/ALBUTEROL 0.5-3(2.5)MG/3ML NEB HHN SCH ×4 (04:50→20:20)
[2020-11-28] MEDS: DEXTROSE 50% WATER 50ML SYRINGE IV PRN ×2 (05:03→06:04)
[2020-11-28] MEDS: INSULIN LISPRO 100 UNITS/ML SUBCUT SCH ×3 (05:29→18:00)
[2020-11-28] MEDS: BLOOD SUGAR DIAGNOSTIC STRIP TEST SCH ×3 (05:29→18:00)
[2020-11-28 05:55] LABS: CHLORIDE 109 mEq/L (98-107)
[2020-11-28 05:56] LABS: BASOPHILS % 0.5 % (0.0-2.0); HEMATOCRIT. 28.4 % (36.0-48.0); HEMOGLOBIN. 9.7 g/dL (12.0-16.0); LYMPHOCYTES % 19.5 % (20.0-50.0); MEAN CORPUSCULAR VOLUME 87.8 fL (81.0-99.0); MEAN PLATELET VOLUME 9.4 fl (7.4-10.4); MONOCYTES % 14.6 % (2.0-8.0); NEUTROPHILS % 61.4 % (40.0-76.0); PLATELET 83 x1000/uL (130-400); RED BLOOD CELL COUNT 3.24 mill/uL (4.2-5.4); RED CELL DISTRIBUTION WIDTH 20.5 % (11.6-14.6)
[2020-11-28] MEDS ORDERED: DEXT 5% WATER + KCL 40MEQ/L 1,000 ML IV ONE (07:45)
[2020-11-28] MEDS: PANTOPRAZOLE SODIUM 40 MG/VIAL IV SCH (08:13)
[2020-11-28] MEDS: CLOTRIMAZOLE 1% CREAM 30GM TOP SCH ×2 (08:14→21:37)
[2020-11-28] MEDS: MIDODRINE HCL 5MG TABLET PO SCH ×3 (08:14→19:03)
[2020-11-28] MEDS: DOPAMINE 400MG/250ML PREMIX 250 ML IV PRN (09:01)
[2020-11-28] MEDS: INSULIN GLARGINE UD 100 UNITS/ML SYR SUBCUT SCH ×2 (09:03→21:30)
[2020-11-28] MEDS: NYSTATIN POWDER 15GM TOP SCH ×3 (09:05→19:04)
[2020-11-28] MEDS ORDERED: POTASSIUM CHLORIDE INJ 40 MEQ in DEXT 5% WATER 250 ML IV SCH (10:00)
[2020-11-28 11:38] LABS: BG BASE EXCESS -1.1 mmol/L (-2.0-2.0); BG CARBOXYHEMOGLOBIN 1.1 % (0.5-1.5); BG DEOXYHEMOGLOBIN 2.4 % (0.0-5.0); BG HCO3 ACT 22.7 mmol/L (22.0-26.0); BG METHEMOGLOBIN 0.1 % (0.0-1.5); BG OXYGEN SATURATION 97.6 % (92.0-98.5); BG OXYHEMOGLOBIN 96.4 % (94.0-97.0); BG PCO2 34.5 mmHg (35.0-45.0); BG PH 7.436 (7.350-7.450); BG PO2 93.3 mmHg (75.0-100.0); BG SAMPLE SITE RIGHT RADIAL; BG TOTAL HEMOGLOBIN 9.7 g/dL (12.0-18.0); BG VENT MODE VENT - AC
[2020-11-28] MEDS: MEROPENEM 1,000 MG in SODIUM CHLORIDE 0.9% 100 ML IV SCH (20:40)
[2020-11-28] MEDS: TOTAL PARENTERAL NUTRITION 1,500 ML IV SCH (20:41)
[2020-11-28] MEDS: DOPAMINE 800MG PREMIX (DOUBLE) 800 ML IV PRN (21:42)
[2020-11-29] VITALS (12 sets, daily range): BP systolic 115–157; BP diastolic 53–110
[2020-11-29] MEDS: INSULIN LISPRO 100 UNITS/ML SUBCUT SCH ×4 (01:17→18:04)
[2020-11-29] MEDS: IPRATROPIUM/ALBUTEROL 0.5-3(2.5)MG/3ML NEB HHN SCH ×4 (03:01→20:07)
[2020-11-29] MEDS: BLOOD SUGAR DIAGNOSTIC STRIP TEST SCH ×5 (06:00→23:53)
[2020-11-29] MEDS: PANTOPRAZOLE SODIUM 40 MG/VIAL IV SCH (08:35)
[2020-11-29] MEDS: MIDODRINE HCL 5MG TABLET PO SCH ×3 (08:36→17:31)
[2020-11-29] MEDS: NYSTATIN POWDER 15GM TOP SCH ×3 (08:41→17:30)
[2020-11-29] MEDS: CLOTRIMAZOLE 1% CREAM 30GM TOP SCH ×2 (08:41→20:50)
[2020-11-29] MEDS: DOPAMINE 800MG PREMIX (DOUBLE) 800 ML IV PRN ×2 (09:32→22:22)
[2020-11-29] MEDS: INSULIN GLARGINE UD 100 UNITS/ML SYR SUBCUT SCH ×2 (09:53→22:32)
[2020-11-29] MEDS: FLUDROCORTISONE ACETATE 0.1MG TABLET PO SCH (13:42)
[2020-11-29] MEDS ORDERED: DIATR MEGLU/DIATRIZOATE SOLN 30ML PO NR (18:45)
[2020-11-29] MEDS ORDERED: MEROPENEM 500 MG in SODIUM CHLORIDE 0.9% 100 ML IV SCH (20:00)
[2020-11-29] MEDS: TOTAL PARENTERAL NUTRITION 1,500 ML IV SCH (20:49)
[2020-11-29] MEDS ORDERED: MENTHOL/LANOLIN/CALAMINE/ZN OX OINT 71GM TOP PRN (21:00)
[2020-11-30] VITALS (12 sets, daily range): BP systolic 97–151; BP diastolic 50–83
[2020-11-30] MEDS: IPRATROPIUM/ALBUTEROL 0.5-3(2.5)MG/3ML NEB HHN SCH ×4 (00:34→21:23)
[2020-11-30] MEDS: INSULIN LISPRO 100 UNITS/ML SUBCUT SCH ×5 (00:41→23:56)
[2020-11-30] MEDS: BLOOD SUGAR DIAGNOSTIC STRIP TEST SCH ×4 (05:58→23:55)
[2020-11-30] MEDS ORDERED: DIATR MEGLU/DIATRIZOATE SOLN 30ML ONE (06:39)
[2020-11-30] MEDS: PANTOPRAZOLE SODIUM 40 MG/VIAL IV SCH (09:21)
[2020-11-30] MEDS: MIDODRINE HCL 5MG TABLET PO SCH ×3 (09:22→17:13)
[2020-11-30] MEDS: FLUDROCORTISONE ACETATE 0.1MG TABLET PO SCH (09:22)
[2020-11-30] MEDS: INSULIN GLARGINE UD 100 UNITS/ML SYR SUBCUT SCH ×2 (09:23→22:35)
[2020-11-30] MEDS: CLOTRIMAZOLE 1% CREAM 30GM TOP SCH ×2 (09:32→22:30)
[2020-11-30] MEDS: NYSTATIN POWDER 15GM TOP SCH ×3 (09:32→17:14)
[2020-11-30] MEDS ORDERED: MEROPENEM 500 MG in SODIUM CHLORIDE 0.9% 50 ML IV SCH (09:45)
[2020-11-30 11:32] LABS: BASOPHILS % 0.4 % (0.0-2.0); EOSINOPHILS % 5.4 % (0.0-5.0); HEMATOCRIT. 27.4 % (36.0-48.0); HEMOGLOBIN. 9.2 g/dL (12.0-16.0); LYMPHOCYTES % 21.1 % (20.0-50.0); MEAN PLATELET VOLUME 9.3 fl (7.4-10.4); MONOCYTES % 14.2 % (2.0-8.0); NEUTROPHILS % 58.9 % (40.0-76.0); PLATELET 86 x1000/uL (130-400); RED BLOOD CELL COUNT 3.08 mill/uL (4.2-5.4); RED CELL DISTRIBUTION WIDTH 22.2 % (11.6-14.6)
[2020-11-30] MEDS ORDERED: VANCOMYCIN 750 MG PREMIX 150 ML IV SCH (12:00)
[2020-11-30] MEDS: DOPAMINE 800MG PREMIX (DOUBLE) 800 ML IV SCH (17:12)
[2020-11-30 17:20] LABS: BASOPHILS % 0.3 % (0.0-2.0); EOSINOPHILS % 6.6 % (0.0-5.0); HEMOGLOBIN. 9.2 g/dL (12.0-16.0); LYMPHOCYTES % 19.7 % (20.0-50.0); MEAN CORPUSCULAR HEMOGLOBIN 30.3 pg (28.0-32.0); MEAN CORPUSCULAR VOLUME 89.2 fL (81.0-99.0); MEAN PLATELET VOLUME 9.3 fl (7.4-10.4); MONOCYTES % 14.5 % (2.0-8.0); NEUTROPHILS % 58.9 % (40.0-76.0); PLATELET 92 x1000/uL (130-400); RED BLOOD CELL COUNT 3.03 mill/uL (4.2-5.4); RED CELL DISTRIBUTION WIDTH 22.1 % (11.6-14.6)
[2020-11-30] MEDS: MEROPENEM 500 MG in SODIUM CHLORIDE 0.9% 50 ML IV SCH (21:33)
[2020-11-30] MEDS: TOTAL PARENTERAL NUTRITION 1,500 ML IV SCH (21:34)
[2020-11-30] MEDS ORDERED: NALOXONE HCL 0.4MG/ML VIAL IV PRN (21:45)
[2020-11-30] MEDS: MORPHINE SULFATE 2 MG/ML CPJ (NOT FOR IM USE) IV PRN (21:58)
[2020-12-01] VITALS (28 sets, daily range): BP systolic 75–117; BP diastolic 39–79
[2020-12-01] MEDS: ACETAMINOPHEN 650MG/20.3ML UDC PO PRN (01:30)
[2020-12-01] MEDS: IPRATROPIUM/ALBUTEROL 0.5-3(2.5)MG/3ML NEB HHN SCH ×4 (02:31→20:05)
[2020-12-01] MEDS: MORPHINE SULFATE 2 MG/ML CPJ (NOT FOR IM USE) IV PRN (03:24)
[2020-12-01] MEDS: BLOOD SUGAR DIAGNOSTIC STRIP TEST SCH ×3 (06:00→17:00)
[2020-12-01] MEDS: INSULIN LISPRO 100 UNITS/ML SUBCUT SCH ×3 (06:00→17:48)
[2020-12-01] MEDS: PANTOPRAZOLE SODIUM 40 MG/VIAL IV SCH (09:12)
[2020-12-01] MEDS: CLOTRIMAZOLE 1% CREAM 30GM TOP SCH ×2 (09:12→20:28)
[2020-12-01] MEDS: MIDODRINE HCL 5MG TABLET PO SCH ×3 (09:12→19:30)
[2020-12-01] MEDS: FLUDROCORTISONE ACETATE 0.1MG TABLET PO SCH (09:25)
[2020-12-01] MEDS: INSULIN GLARGINE UD 100 UNITS/ML SYR SUBCUT SCH ×2 (09:26→22:50)
[2020-12-01] MEDS: DOPAMINE 800MG PREMIX (DOUBLE) 800 ML IV SCH (12:21)
[2020-12-01] MEDS: NYSTATIN POWDER 15GM TOP SCH ×3 (12:21→17:47)
[2020-12-01] MEDS: MEROPENEM 500 MG in SODIUM CHLORIDE 0.9% 50 ML IV SCH (20:26)
[2020-12-01] MEDS ORDERED: DIATR MEGLU/DIATRIZOATE SOLN 30ML PO NR (20:30)
[2020-12-01] MEDS ORDERED: FAT EMULSIONS 500 ML IV SCH (21:00)
[2020-12-01] MEDS: TOTAL PARENTERAL NUTRITION 1,500 ML IV SCH (21:00)
[2020-12-02] VITALS (13 sets, daily range): BP systolic 74–137; BP diastolic 39–76
[2020-12-02] MEDS: MORPHINE SULFATE 2 MG/ML CPJ (NOT FOR IM USE) IV PRN (00:36)
[2020-12-02] MEDS: INSULIN LISPRO 100 UNITS/ML SUBCUT SCH ×4 (06:00→17:56)
[2020-12-02] MEDS: BLOOD SUGAR DIAGNOSTIC STRIP TEST SCH ×4 (06:00→17:56)
[2020-12-02 07:06] LABS: BASOPHILS % 0.3 % (0.0-2.0); EOSINOPHILS % 2.8 % (0.0-5.0); HEMATOCRIT. 25.6 % (36.0-48.0); HEMOGLOBIN. 8.6 g/dL (12.0-16.0); LYMPHOCYTES % 14.2 % (20.0-50.0); MEAN CORPUSCULAR HEMOGLOBIN 30.4 pg (28.0-32.0); MEAN CORPUSCULAR VOLUME 90.7 fL (81.0-99.0); MEAN PLATELET VOLUME 9.9 fl (7.4-10.4); MONOCYTES % 8.4 % (2.0-8.0); NEUTROPHILS % 74.3 % (40.0-76.0); PLATELET 105 x1000/uL (130-400); RED BLOOD CELL COUNT 2.82 mill/uL (4.2-5.4); RED CELL DISTRIBUTION WIDTH 22.7 % (11.6-14.6)
[2020-12-02] MEDS: IPRATROPIUM/ALBUTEROL 0.5-3(2.5)MG/3ML NEB HHN SCH ×3 (09:11→19:54)
[2020-12-02] MEDS: MIDODRINE HCL 5MG TABLET PO SCH ×3 (09:48→17:55)
[2020-12-02] MEDS: FLUDROCORTISONE ACETATE 0.1MG TABLET PO SCH (09:48)
[2020-12-02] MEDS: PANTOPRAZOLE SODIUM 40 MG/VIAL IV SCH (09:48)
[2020-12-02] MEDS: NYSTATIN POWDER 15GM TOP SCH ×3 (09:49→17:55)
[2020-12-02] MEDS: CLOTRIMAZOLE 1% CREAM 30GM TOP SCH ×2 (09:49→23:05)
[2020-12-02] MEDS: INSULIN GLARGINE UD 100 UNITS/ML SYR SUBCUT SCH ×2 (09:51→22:58)
[2020-12-02] MEDS ORDERED: ALBUMIN HUMAN 12.5G/250ML (5%) IV ONE (12:00)
[2020-12-02] MEDS ORDERED: POTASSIUM CHLORIDE INJ 40 MEQ in DEXT 5% WATER 250 ML IV NR (13:00)
[2020-12-02] MEDS: DOPAMINE 800MG PREMIX (DOUBLE) 800 ML IV SCH (15:14)
[2020-12-02] MEDS ORDERED: VANCOMYCIN 500 MG PREMIX 100 ML IV NR (18:00)
[2020-12-02] MEDS: MEROPENEM 500 MG in SODIUM CHLORIDE 0.9% 50 ML IV SCH (20:42)
[2020-12-02] MEDS: TOTAL PARENTERAL NUTRITION 1,500 ML IV SCH (22:59)
[2020-12-03] VITALS (16 sets, daily range): BP systolic 75–188; BP diastolic 30–91
[2020-12-03] MEDS: BLOOD SUGAR DIAGNOSTIC STRIP TEST SCH ×2 (00:28→06:00)
[2020-12-03] MEDS: IPRATROPIUM/ALBUTEROL 0.5-3(2.5)MG/3ML NEB HHN SCH ×4 (01:38→20:21)
[2020-12-03] MEDS: INSULIN LISPRO 100 UNITS/ML SUBCUT SCH ×2 (06:00)
[2020-12-03] MEDS: CLOTRIMAZOLE 1% CREAM 30GM TOP SCH ×2 (09:00→21:00)
[2020-12-03] MEDS: PANTOPRAZOLE SODIUM 40 MG/VIAL IV SCH (10:10)
[2020-12-03] MEDS: MIDODRINE HCL 5MG TABLET PO SCH ×4 (10:10→22:00)
[2020-12-03] MEDS: FLUDROCORTISONE ACETATE 0.1MG TABLET PO SCH (10:11)
[2020-12-03] MEDS: NYSTATIN POWDER 15GM TOP SCH ×3 (10:11→17:49)
[2020-12-03] MEDS: INSULIN GLARGINE UD 100 UNITS/ML SYR SUBCUT SCH ×2 (10:39→23:40)
[2020-12-03] MEDS: DOPAMINE 800MG PREMIX (DOUBLE) 800 ML IV SCH (13:47)
[2020-12-03 15:50] LABS: BASOPHILS % 0.3 % (0.0-2.0); HEMOGLOBIN. 7.8 g/dL (12.0-16.0); LYMPHOCYTES % 15.9 % (20.0-50.0); MEAN CORPUSCULAR HEMOGLOBIN 31.4 pg (28.0-32.0); MEAN CORPUSCULAR VOLUME 88.8 fL (81.0-99.0); MEAN PLATELET VOLUME 9.5 fl (7.4-10.4); MONOCYTES % 11.9 % (2.0-8.0); NEUTROPHILS % 67.9 % (40.0-76.0); PLATELET 114 x1000/uL (130-400); RED BLOOD CELL COUNT 2.48 mill/uL (4.2-5.4)
[2020-12-03] MEDS: MEROPENEM 500 MG in SODIUM CHLORIDE 0.9% 50 ML IV SCH (22:05)
[2020-12-03] MEDS: TOTAL PARENTERAL NUTRITION 1,500 ML IV SCH (22:18)
[2020-12-03] MEDS: DEXTROSE 50% WATER 50ML SYRINGE IV PRN (23:04)
[2020-12-04] VITALS (33 sets, daily range): BP systolic 72–145; BP diastolic 29–98
[2020-12-04] MEDS ORDERED: INSULIN LISPRO 100 UNITS/ML SUBCUT SCH
[2020-12-04] MEDS: IPRATROPIUM/ALBUTEROL 0.5-3(2.5)MG/3ML NEB HHN SCH ×4 (02:29→21:49)
[2020-12-04] MEDS: BLOOD SUGAR DIAGNOSTIC STRIP TEST SCH ×4 (05:12→18:31)
[2020-12-04] MEDS: INSULIN LISPRO (HIGH DOSE) 100 UNITS/ML SUBCUT SCH ×4 (05:12→18:00)
[2020-12-04] MEDS: MIDODRINE HCL 5MG TABLET PO SCH ×3 (05:28→22:51)
[2020-12-04] MEDS: ACETAMINOPHEN 650MG/20.3ML UDC PO PRN (05:36)
[2020-12-04] MEDS: PANTOPRAZOLE SODIUM 40 MG/VIAL IV SCH (09:35)
[2020-12-04] MEDS: INSULIN GLARGINE UD 100 UNITS/ML SYR SUBCUT SCH ×2 (09:36→22:52)
[2020-12-04] MEDS: FLUDROCORTISONE ACETATE 0.1MG TABLET PO SCH (09:37)
[2020-12-04] MEDS: NYSTATIN POWDER 15GM TOP SCH ×3 (09:38→17:49)
[2020-12-04] MEDS: CLOTRIMAZOLE 1% CREAM 30GM TOP SCH ×2 (09:57→21:00)
[2020-12-04 12:14] LABS: BASOPHILS % 0.7 % (0.0-2.0); EOSINOPHILS % 2.8 % (0.0-5.0); HEMATOCRIT. 21.7 % (36.0-48.0); HEMOGLOBIN. 7.6 g/dL (12.0-16.0); LYMPHOCYTES % 15.2 % (20.0-50.0); MEAN CORPUSCULAR HEMOGLOBIN 31.7 pg (28.0-32.0); MEAN CORPUSCULAR VOLUME 90.4 fL (81.0-99.0); MEAN PLATELET VOLUME 10.4 fl (7.4-10.4); MONOCYTES % 8.2 % (2.0-8.0); NEUTROPHILS % 73.1 % (40.0-76.0); PLATELET 109 x1000/uL (130-400); RED CELL DISTRIBUTION WIDTH 22.7 % (11.6-14.6)
[2020-12-04] MEDS ORDERED: POTASSIUM CHLORIDE 20MEQ TABLET SR PO SCH (15:30)
[2020-12-04] MEDS ORDERED: POTASSIUM CHLORIDE INJ 40 MEQ in DEXT 5% WATER 250 ML IV SCH (17:00)
[2020-12-04] MEDS ORDERED: VANCOMYCIN 500 MG PREMIX 100 ML IV NR (20:00)
[2020-12-04] MEDS: TOTAL PARENTERAL NUTRITION 1,500 ML IV SCH (22:43)
[2020-12-04] MEDS: MEROPENEM 500 MG in SODIUM CHLORIDE 0.9% 50 ML IV SCH (22:44)
[2020-12-04] MEDS: DOPAMINE 800MG PREMIX (DOUBLE) 800 ML IV SCH (22:45)
[2020-12-05] VITALS (61 sets, daily range): BP systolic 82–243; BP diastolic 42–120
[2020-12-05] MEDS: IPRATROPIUM/ALBUTEROL 0.5-3(2.5)MG/3ML NEB HHN SCH ×4 (00:58→20:49)
[2020-12-05] MEDS: DEXTROSE 50% WATER 50ML SYRINGE IV PRN ×2 (05:22→09:31)
[2020-12-05] MEDS: BLOOD SUGAR DIAGNOSTIC STRIP TEST SCH ×4 (05:51→18:07)
[2020-12-05] MEDS: INSULIN LISPRO (HIGH DOSE) 100 UNITS/ML SUBCUT SCH ×4 (06:00→18:11)
[2020-12-05] MEDS: MIDODRINE HCL 5MG TABLET PO SCH ×3 (06:51→21:44)
[2020-12-05] MEDS: PANTOPRAZOLE SODIUM 40 MG/VIAL IV SCH (08:17)
[2020-12-05] MEDS: NYSTATIN POWDER 15GM TOP SCH ×3 (08:19→17:30)
[2020-12-05] MEDS: FLUDROCORTISONE ACETATE 0.1MG TABLET PO SCH (08:19)
[2020-12-05 08:29] LABS: BASOPHILS % 0.5 % (0.0-2.0); EOSINOPHILS % 3.4 % (0.0-5.0); HEMATOCRIT. 22.8 % (36.0-48.0); HEMOGLOBIN. 7.8 g/dL (12.0-16.0); MEAN CORPUSCULAR HEMOGLOBIN 30.7 pg (28.0-32.0); MEAN CORPUSCULAR VOLUME 90.2 fL (81.0-99.0); MEAN PLATELET VOLUME 9.7 fl (7.4-10.4); MONOCYTES % 11.6 % (2.0-8.0); NEUTROPHILS % 71.5 % (40.0-76.0); PLATELET 123 x1000/uL (130-400); RED BLOOD CELL COUNT 2.53 mill/uL (4.2-5.4); RED CELL DISTRIBUTION WIDTH 22.9 % (11.6-14.6)
[2020-12-05] MEDS ORDERED: EPINEPHRINE 0.1MG/ML (1:10,000) 10ML SYR ONE (08:53)
[2020-12-05] MEDS: INSULIN GLARGINE UD 100 UNITS/ML SYR SUBCUT SCH ×2 (09:22→21:45)
[2020-12-05] MEDS: CLOTRIMAZOLE 1% CREAM 30GM TOP SCH (09:32)
[2020-12-05] MEDS ORDERED: NOREPINEPHRINE 8MG/250ML PMX 250 ML IV NR (10:15)
[2020-12-05 10:59] LABS: BG BASE EXCESS -1.8 mmol/L (-2.0-2.0); BG CARBOXYHEMOGLOBIN 1.2 % (0.5-1.5); BG DEOXYHEMOGLOBIN 8.6 % (0.0-5.0); BG FRACTION INSPIRED OXYGEN 35; BG HCO3 ACT 23.1 mmol/L (22.0-26.0); BG METHEMOGLOBIN 0.3 % (0.0-1.5); BG OXYGEN SATURATION 91.3 % (92.0-98.5); BG OXYHEMOGLOBIN 89.9 % (94.0-97.0); BG PCO2 39.7 mmHg (35.0-45.0); BG PH 7.382 (7.350-7.450); BG PO2 64.9 mmHg (75.0-100.0); BG SAMPLE SITE LEFT RADIAL; BG TOTAL HEMOGLOBIN 8.8 g/dL (12.0-18.0); BG VENT MODE VENT - AC
[2020-12-05] MEDS ORDERED: POTASSIUM CHLORIDE INJ 40 MEQ in DEXT 5% WATER 250 ML IV NR (11:30)
[2020-12-05] MEDS: DOPAMINE 800MG PREMIX (DOUBLE) 800 ML IV SCH ×2 (13:24→23:09)
[2020-12-05] MEDS ORDERED: KCL 20MEQ/100ML PREMIX 100 ML IV NR (18:00)
[2020-12-05] MEDS: ACETAMINOPHEN 650MG/20.3ML UDC NG PRN ×2 (18:11→22:26)
[2020-12-05 19:50] LABS: PHOSPHORUS 0.7 mg/dL (2.5-4.9)
[2020-12-05] MEDS: MEROPENEM 500 MG in SODIUM CHLORIDE 0.9% 50 ML IV SCH (21:42)
[2020-12-05] MEDS: TOTAL PARENTERAL NUTRITION 1,500 ML IV SCH (21:44)
[2020-12-05] MEDS ORDERED: MAGNESIUM 2 G PREMIX 50 ML IV ONE (23:00)
[2020-12-06] VITALS (95 sets, daily range): BP systolic 76–140; BP diastolic 29–90
[2020-12-06] MEDS: BLOOD SUGAR DIAGNOSTIC STRIP TEST SCH ×5 (00:20→23:39)
[2020-12-06] MEDS: INSULIN LISPRO (HIGH DOSE) 100 UNITS/ML SUBCUT SCH ×5 (00:25→23:40)
[2020-12-06] MEDS: CLOTRIMAZOLE 1% CREAM 30GM TOP SCH ×3 (00:26→21:15)
[2020-12-06] MEDS: IPRATROPIUM/ALBUTEROL 0.5-3(2.5)MG/3ML NEB HHN SCH ×4 (00:59→20:17)
[2020-12-06] MEDS: MIDODRINE HCL 5MG TABLET PO SCH ×3 (05:49→20:46)
[2020-12-06 06:20] LABS: BASOPHILS % 0.3 % (0.0-2.0); EOSINOPHILS % 2.4 % (0.0-5.0); HEMATOCRIT. 21.6 % (36.0-48.0); HEMOGLOBIN. 7.4 g/dL (12.0-16.0); LYMPHOCYTES % 16.5 % (20.0-50.0); MEAN CORPUSCULAR HEMOGLOBIN 31.1 pg (28.0-32.0); MEAN CORPUSCULAR VOLUME 90.5 fL (81.0-99.0); MEAN PLATELET VOLUME 10.2 fl (7.4-10.4); MONOCYTES % 10.6 % (2.0-8.0); NEUTROPHILS % 70.2 % (40.0-76.0); PLATELET 106 x1000/uL (130-400); RED BLOOD CELL COUNT 2.39 mill/uL (4.2-5.4); RED CELL DISTRIBUTION WIDTH 22.8 % (11.6-14.6)
[2020-12-06 07:30] LABS: PHOSPHORUS 1.3 mg/dL (2.5-4.9)
[2020-12-06] MEDS: FLUDROCORTISONE ACETATE 0.1MG TABLET PO SCH (08:18)
[2020-12-06] MEDS: PANTOPRAZOLE SODIUM 40 MG/VIAL IV SCH (08:18)
[2020-12-06] MEDS: NYSTATIN POWDER 15GM TOP SCH ×3 (08:19→18:18)
[2020-12-06] MEDS: ACETAMINOPHEN 650MG/20.3ML UDC NG PRN (08:19)
[2020-12-06] MEDS: INSULIN GLARGINE UD 100 UNITS/ML SYR SUBCUT SCH ×2 (09:49→21:16)
[2020-12-06] MEDS: DOPAMINE 800MG PREMIX (DOUBLE) 800 ML IV SCH ×2 (09:50→20:48)
[2020-12-06] MEDS ORDERED: POTASSIUM PHOS,M-BASIC-D-BASIC 20 MMOL in DEXT 5% WATER 243.3333 ML IV ONE ×2 (11:00)
[2020-12-06 12:37] LABS: PLATELET ESTIMATE SLIGHTLY DECREASED
[2020-12-06 12:48] LABS: BG BASE EXCESS -1.8 mmol/L (-2.0-2.0); BG CARBOXYHEMOGLOBIN 1.5 % (0.5-1.5); BG DEOXYHEMOGLOBIN 2.1 % (0.0-5.0); BG FRACTION INSPIRED OXYGEN 50; BG HCO3 ACT 21.6 mmol/L (22.0-26.0); BG METHEMOGLOBIN 0.3 % (0.0-1.5); BG OXYGEN SATURATION 97.9 % (92.0-98.5); BG OXYHEMOGLOBIN 96.1 % (94.0-97.0); BG PCO2 30.8 mmHg (35.0-45.0); BG PH 7.464 (7.350-7.450); BG PO2 100.4 mmHg (75.0-100.0); BG SAMPLE SITE RIGHT RADIAL; BG TOTAL HEMOGLOBIN 7.4 g/dL (12.0-18.0); BG VENT MODE VENT - AC
[2020-12-06] MEDS ORDERED: VANCOMYCIN 750 MG PREMIX 150 ML IV NR (18:00)
[2020-12-06] MEDS: MEROPENEM 500 MG in SODIUM CHLORIDE 0.9% 50 ML IV SCH (20:49)
[2020-12-06] MEDS: TOTAL PARENTERAL NUTRITION 1,500 ML IV SCH ×2 (21:00→21:17)
[2020-12-06] MEDS ORDERED: MEROPENEM 1,000 MG in SODIUM CHLORIDE 0.9% 100 ML IV SCH (22:00)
[2020-12-07] VITALS (79 sets, daily range): BP systolic 54–172; BP diastolic 26–123
[2020-12-07] MEDS: IPRATROPIUM/ALBUTEROL 0.5-3(2.5)MG/3ML NEB HHN SCH ×4 (01:55→20:10)
[2020-12-07] MEDS: MIDODRINE HCL 5MG TABLET PO SCH ×3 (05:18→21:22)
[2020-12-07 05:44] LABS: BASOPHILS % 0.2 % (0.0-2.0); EOSINOPHILS % 3.7 % (0.0-5.0); HEMATOCRIT. 22.5 % (36.0-48.0); HEMOGLOBIN. 7.8 g/dL (12.0-16.0); LYMPHOCYTES % 19.2 % (20.0-50.0); MEAN CORPUSCULAR HEMOGLOBIN 31.2 pg (28.0-32.0); MEAN CORPUSCULAR VOLUME 90.3 fL (81.0-99.0); MEAN PLATELET VOLUME 9.8 fl (7.4-10.4); NEUTROPHILS % 63.9 % (40.0-76.0); PLATELET 137 x1000/uL (130-400); RED BLOOD CELL COUNT 2.49 mill/uL (4.2-5.4); RED CELL DISTRIBUTION WIDTH 23.1 % (11.6-14.6)
[2020-12-07] MEDS: INSULIN LISPRO (HIGH DOSE) 100 UNITS/ML SUBCUT SCH ×3 (05:50→18:00)
[2020-12-07] MEDS: BLOOD SUGAR DIAGNOSTIC STRIP TEST SCH ×3 (05:51→18:00)
[2020-12-07] MEDS: DOPAMINE 800MG PREMIX (DOUBLE) 800 ML IV SCH ×2 (08:10→18:18)
[2020-12-07] MEDS: FLUDROCORTISONE ACETATE 0.1MG TABLET PO SCH (09:00)
[2020-12-07] MEDS: PANTOPRAZOLE SODIUM 40 MG/VIAL IV SCH (09:00)
[2020-12-07] MEDS: INSULIN GLARGINE UD 100 UNITS/ML SYR SUBCUT SCH ×2 (10:00→22:48)
[2020-12-07] MEDS: NYSTATIN POWDER 15GM TOP SCH ×3 (10:35→18:01)
[2020-12-07] MEDS: CLOTRIMAZOLE 1% CREAM 30GM TOP SCH ×2 (10:36→21:22)
[2020-12-07] MEDS ORDERED: PHENYLEPHRINE 50 MG in DEXT 5% WATER 245 ML IV PRN (11:00)
[2020-12-07] MEDS ORDERED: POTASSIUM CHLORIDE INJ 40 MEQ in DEXT 5% WATER 250 ML IV SCH (13:00)
[2020-12-07 13:15] LABS: BG BASE EXCESS -1.3 mmol/L (-2.0-2.0); BG CARBOXYHEMOGLOBIN 1.4 % (0.5-1.5); BG DEOXYHEMOGLOBIN 3.4 % (0.0-5.0); BG FRACTION INSPIRED OXYGEN 60; BG HCO3 ACT 22.5 mmol/L (22.0-26.0); BG METHEMOGLOBIN 0.2 % (0.0-1.5); BG OXYGEN SATURATION 96.5 % (92.0-98.5); BG PCO2 33.2 mmHg (35.0-45.0); BG PH 7.448 (7.350-7.450); BG PO2 83.4 mmHg (75.0-100.0); BG SAMPLE SITE RIGHT RADIAL; BG TOTAL HEMOGLOBIN 7.5 g/dL (12.0-18.0); BG TOTAL RESPIRATORY RATE 28 b/min; BG VENT MODE VENT - AC
[2020-12-07] MEDS ORDERED: ALBUMIN HUMAN 12.5G/250ML (5%) IV PRN (15:00)
[2020-12-07] MEDS: MEROPENEM 1,000 MG in SODIUM CHLORIDE 0.9% 100 ML IV SCH (15:11)
[2020-12-07] MEDS ORDERED: ATROPINE SULFATE 0.1MG/ML 10ML DISP.SYRIN IV NR (20:30)
[2020-12-07] MEDS: TOTAL PARENTERAL NUTRITION 1,500 ML IV SCH (21:21)
[2020-12-07] MEDS: MENTHOL/LANOLIN/CALAMINE/ZN OX OINT 71GM TOP SCH (21:22)
[2020-12-08] VITALS (97 sets, daily range): BP systolic 56–195; BP diastolic 20–141
[2020-12-08] MEDS: BLOOD SUGAR DIAGNOSTIC STRIP TEST SCH ×4 (00:15→23:55)
[2020-12-08] MEDS: INSULIN LISPRO (HIGH DOSE) 100 UNITS/ML SUBCUT SCH ×4 (00:26→18:47)
[2020-12-08] MEDS: ACETAMINOPHEN 650MG/20.3ML UDC NG PRN ×3 (00:28→20:56)
[2020-12-08] MEDS: IPRATROPIUM/ALBUTEROL 0.5-3(2.5)MG/3ML NEB HHN SCH ×4 (00:31→20:44)
[2020-12-08] MEDS: DOPAMINE 800MG PREMIX (DOUBLE) 800 ML IV SCH ×3 (03:08→20:53)
[2020-12-08 06:00] LABS: BASOPHILS % 0.6 % (0.0-2.0); EOSINOPHILS % 2.9 % (0.0-5.0); LYMPHOCYTES % 20.1 % (20.0-50.0); MEAN CORPUSCULAR HEMOGLOBIN 31.7 pg (28.0-32.0); MEAN CORPUSCULAR VOLUME 92.9 fL (81.0-99.0); MEAN PLATELET VOLUME 9.6 fl (7.4-10.4); NEUTROPHILS % 63.4 % (40.0-76.0); PLATELET 114 x1000/uL (130-400); RED BLOOD CELL COUNT 2.21 mill/uL (4.2-5.4); RED CELL DISTRIBUTION WIDTH 23.6 % (11.6-14.6)
[2020-12-08 06:22] LABS: HEMATOCRIT. 20.5 % (36.0-48.0)
[2020-12-08] MEDS: MIDODRINE HCL 5MG TABLET PO SCH ×3 (06:25→22:00)
[2020-12-08] MEDS: FLUDROCORTISONE ACETATE 0.1MG TABLET PO SCH (09:28)
[2020-12-08] MEDS: PANTOPRAZOLE SODIUM 40 MG/VIAL IV SCH (09:28)
[2020-12-08] MEDS: NYSTATIN POWDER 15GM TOP SCH ×3 (09:28→16:54)
[2020-12-08] MEDS: MENTHOL/LANOLIN/CALAMINE/ZN OX OINT 71GM TOP SCH ×2 (09:28→21:37)
[2020-12-08] MEDS: INSULIN GLARGINE UD 100 UNITS/ML SYR SUBCUT SCH ×2 (09:34→22:00)
[2020-12-08] MEDS ORDERED: ATROPINE SULFATE 1MG/10ML SYR IV SCH (12:15)
[2020-12-08] MEDS ORDERED: ATROPINE SULFATE 1MG/10ML SYR IV ONE (12:15)
[2020-12-08] MEDS ORDERED: MAGNESIUM 2 G PREMIX 50 ML IV SCH (14:00)
[2020-12-08] MEDS: MEROPENEM 1,000 MG in SODIUM CHLORIDE 0.9% 100 ML IV SCH (15:22)
[2020-12-08] MEDS: TOTAL PARENTERAL NUTRITION 1,500 ML IV SCH (20:56)
[2020-12-08] MEDS ORDERED: FAT EMULSIONS 500 ML IV SCH (21:00)
[2020-12-08 21:21] LABS: HEMATOCRIT 24.9 % (36.0-48.0); HEMOGLOBIN 8.6 g/dL (12.0-16.0)
[2020-12-08 21:31] LABS: INR 1.5; PROTHROMBIN TIME 15.6 sec (9.6-11.0)
[2020-12-09] VITALS (114 sets, daily range): BP systolic 54–224; BP diastolic 21–164
[2020-12-09] MEDS: INSULIN LISPRO (HIGH DOSE) 100 UNITS/ML SUBCUT SCH ×5 (00:04→23:07)
[2020-12-09] MEDS: ACETAMINOPHEN 650MG/20.3ML UDC NG PRN ×2 (02:35→13:00)
[2020-12-09] MEDS: IPRATROPIUM/ALBUTEROL 0.5-3(2.5)MG/3ML NEB HHN SCH ×3 (04:10→12:00)
[2020-12-09 05:28] LABS: BASOPHILS % 0.6 % (0.0-2.0); EOSINOPHILS % 2.9 % (0.0-5.0); HEMATOCRIT. 23.5 % (36.0-48.0); HEMOGLOBIN. 8.5 g/dL (12.0-16.0); LYMPHOCYTES % 21.7 % (20.0-50.0); MEAN CORPUSCULAR VOLUME 91.2 fL (81.0-99.0); MEAN PLATELET VOLUME 10.3 fl (7.4-10.4); MONOCYTES % 13.2 % (2.0-8.0); NEUTROPHILS % 61.6 % (40.0-76.0); PLATELET 105 x1000/uL (130-400); RED BLOOD CELL COUNT 2.57 mill/uL (4.2-5.4); RED CELL DISTRIBUTION WIDTH 22.1 % (11.6-14.6)
[2020-12-09] MEDS: BLOOD SUGAR DIAGNOSTIC STRIP TEST SCH ×4 (06:14→23:03)
[2020-12-09] MEDS: MIDODRINE HCL 5MG TABLET PO SCH ×3 (06:25→21:47)
[2020-12-09] MEDS: DOPAMINE 800MG PREMIX (DOUBLE) 800 ML IV SCH ×2 (07:10→18:33)
[2020-12-09] MEDS: MENTHOL/LANOLIN/CALAMINE/ZN OX OINT 71GM TOP SCH ×2 (08:20→21:47)
[2020-12-09] MEDS: NYSTATIN POWDER 15GM TOP SCH ×3 (08:21→17:57)
[2020-12-09] MEDS: PANTOPRAZOLE SODIUM 40 MG/VIAL IV SCH (08:22)
[2020-12-09] MEDS: FLUDROCORTISONE ACETATE 0.1MG TABLET PO SCH (08:22)
[2020-12-09] MEDS ORDERED: TOTAL PARENTERAL NUTRITION 1,500 ML IV SCH ×2 (09:15→21:00)
[2020-12-09 10:29] LABS: BG BASE EXCESS -9.5 mmol/L (-2.0-2.0); BG CARBOXYHEMOGLOBIN 0.6 % (0.5-1.5); BG DEOXYHEMOGLOBIN 1.2 % (0.0-5.0); BG FRACTION INSPIRED OXYGEN 100; BG HCO3 ACT 15.3 mmol/L (22.0-26.0); BG OXYGEN SATURATION 98.8 % (92.0-98.5); BG OXYHEMOGLOBIN 98.2 % (94.0-97.0); BG PCO2 29.3 mmHg (35.0-45.0); BG PH 7.335 (7.350-7.450); BG PO2 146.1 mmHg (75.0-100.0); BG SAMPLE SITE RIGHT RADIAL; BG TOTAL HEMOGLOBIN 8.2 g/dL (12.0-18.0); BG VENT MODE VENT - AC
[2020-12-09] MEDS ORDERED: NALOXONE HCL 0.4MG/ML VIAL IV PRN (10:45)
[2020-12-09] MEDS: MORPHINE SULFATE 2 MG/ML CPJ (NOT FOR IM USE) IV PRN ×2 (13:00→16:15)
[2020-12-09] MEDS: MEROPENEM 1,000 MG in SODIUM CHLORIDE 0.9% 100 ML IV SCH (14:36)
[2020-12-09] MEDS ORDERED: VANCOMYCIN 750 MG PREMIX 150 ML IV NR (20:00)
[2020-12-09] MEDS: COLISTIMETHATE SODIUM 150MG/VIAL INH SCH (21:00)
[2020-12-09] MEDS: PHENYLEPHRINE 100 MG in DEXT 5% WATER 250 ML IV PRN (21:50)
[2020-12-09] MEDS: ATROPINE SULFATE 1MG/10ML SYR IV PRN (22:47)
[2020-12-09] MEDS: INSULIN GLARGINE UD 100 UNITS/ML SYR SUBCUT SCH (23:06)
[2020-12-10] VITALS (88 sets, daily range): BP systolic 60–209; BP diastolic 18–148
[2020-12-10] MEDS: BLOOD SUGAR DIAGNOSTIC STRIP TEST SCH ×3 (05:41→17:43)
[2020-12-10] MEDS: MIDODRINE HCL 5MG TABLET PO SCH ×3 (05:41→21:03)
[2020-12-10] MEDS: INSULIN LISPRO (HIGH DOSE) 100 UNITS/ML SUBCUT SCH ×3 (05:44→17:43)
[2020-12-10] MEDS: NOREPINEPHRINE 32 MG in DEXT 5% WATER 218 ML IV PRN (06:53)
[2020-12-10] MEDS ORDERED: EPINEPHRINE 10 MG in SODIUM CHLORIDE 0.9% 240 ML IV PRN (07:00)
[2020-12-10] MEDS ORDERED: SODIUM CHLORIDE 0.9% 1000ML BAG (SEPSIS BOLUS) IV ONE (07:15)
[2020-12-10] MEDS: ATROPINE SULFATE 1MG/10ML SYR IV PRN (07:16)
[2020-12-10] MEDS ORDERED: SODIUM CHLORIDE 0.9% 1,000 ML IV SCH (07:30)
[2020-12-10] MEDS: COLISTIMETHATE SODIUM 150MG/VIAL INH SCH ×2 (08:10→23:42)
[2020-12-10] MEDS: PANTOPRAZOLE SODIUM 40 MG/VIAL IV SCH (08:14)
[2020-12-10] MEDS: FLUDROCORTISONE ACETATE 0.1MG TABLET PO SCH (08:15)
[2020-12-10] MEDS: MORPHINE SULFATE 2 MG/ML CPJ (NOT FOR IM USE) IV PRN (08:15)
[2020-12-10 08:45] LABS: BG CARBOXYHEMOGLOBIN 0.6 % (0.5-1.5); BG DEOXYHEMOGLOBIN 1.2 % (0.0-5.0); BG HCO3 ACT 23.7 mmol/L (22.0-26.0); BG METHEMOGLOBIN 0.3 % (0.0-1.5); BG OXYGEN SATURATION 98.8 % (92.0-98.5); BG OXYHEMOGLOBIN 97.9 % (94.0-97.0); BG PCO2 57.2 mmHg (35.0-45.0); BG PH 7.235 (7.350-7.450); BG PO2 139.7 mmHg (75.0-100.0); BG SAMPLE SITE RIGHT RADIAL; BG TOTAL HEMOGLOBIN 9.4 g/dL (12.0-18.0); BG VENT MODE VENT- PRVC
[2020-12-10] MEDS ORDERED: ATROPINE SULFATE 1MG/10ML SYR ONE (08:45)
[2020-12-10] MEDS ORDERED: EPINEPHRINE 0.1MG/ML (1:10,000) 10ML SYR ONE (08:45)
[2020-12-10] MEDS: MENTHOL/LANOLIN/CALAMINE/ZN OX OINT 71GM TOP SCH ×2 (09:08→21:06)
[2020-12-10] MEDS: INSULIN GLARGINE UD 100 UNITS/ML SYR SUBCUT SCH (09:08)
[2020-12-10 10:17] LABS: BASOPHILS % 0.2 % (0.0-2.0); EOSINOPHILS % 4.1 % (0.0-5.0); HEMATOCRIT. 24.3 % (36.0-48.0); LYMPHOCYTES % 8.7 % (20.0-50.0); MEAN CORPUSCULAR HEMOGLOBIN 30.8 pg (28.0-32.0); MEAN CORPUSCULAR VOLUME 92.8 fL (81.0-99.0); MEAN PLATELET VOLUME 10.3 fl (7.4-10.4); MONOCYTES % 13.3 % (2.0-8.0); NEUTROPHILS % 73.7 % (40.0-76.0); PLATELET 90 x1000/uL (130-400); RED BLOOD CELL COUNT 2.61 mill/uL (4.2-5.4); RED CELL DISTRIBUTION WIDTH 22.7 % (11.6-14.6)
[2020-12-10 10:22] LABS: INR 1.6; PROTHROMBIN TIME 16.8 sec (9.6-11.0)
[2020-12-10] MEDS: DOPAMINE 800MG PREMIX (DOUBLE) 800 ML IV SCH (12:05)
[2020-12-10] MEDS ORDERED: DOPAMINE 800MG PREMIX (DOUBLE) 800 ML IV SCH (13:00)
[2020-12-10] MEDS: MEROPENEM 1,000 MG in SODIUM CHLORIDE 0.9% 100 ML IV SCH (15:09)
[2020-12-10] MEDS: DEXT 10% WATER 1,000 ML IV SCH (18:41)
[2020-12-10] MEDS: DOPAMINE 800MG PREMIX (DOUBLE) 250 ML IV SCH (21:02)
[2020-12-10] MEDS: ACETAMINOPHEN 650MG/20.3ML UDC NG PRN (21:03)
[2020-12-10] MEDS ORDERED: INSULIN GLARGINE UD 100 UNITS/ML SYR SUBCUT SCH (22:00)
[2020-12-11] VITALS (103 sets, daily range): BP systolic 75–196; BP diastolic 23–128
[2020-12-11] MEDS: DEXTROSE 50% WATER 50ML SYRINGE IV PRN ×3 (00:04→12:11)
[2020-12-11 00:17] LABS: HEMATOCRIT 22.6 % (36.0-48.0); HEMOGLOBIN 7.6 g/dL (12.0-16.0); MEAN CORPUSCULAR HEMOGLOBIN 31.3 pg (28.0-32.0); MEAN CORPUSCULAR VOLUME 93.1 fL (81.0-99.0); PLATELET 103 x1000/uL (130-400); RED BLOOD CELL COUNT 2.43 mill/uL (4.2-5.4); RED CELL DISTRIBUTION WIDTH 22.6 % (11.6-14.6)
[2020-12-11] MEDS: ACETAMINOPHEN 650MG/20.3ML UDC NG PRN (02:46)
[2020-12-11] MEDS: INSULIN LISPRO (HIGH DOSE) 100 UNITS/ML SUBCUT SCH ×5 (06:00→23:42)
[2020-12-11] MEDS: MIDODRINE HCL 5MG TABLET PO SCH ×3 (06:17→21:48)
[2020-12-11] MEDS: BLOOD SUGAR DIAGNOSTIC STRIP TEST SCH ×6 (06:38→23:42)
[2020-12-11] MEDS: COLISTIMETHATE SODIUM 150MG/VIAL INH SCH ×2 (08:11→20:51)
[2020-12-11] MEDS: PANTOPRAZOLE SODIUM 40 MG/VIAL IV SCH (09:50)
[2020-12-11] MEDS: FLUDROCORTISONE ACETATE 0.1MG TABLET PO SCH (09:50)
[2020-12-11] MEDS: MENTHOL/LANOLIN/CALAMINE/ZN OX OINT 71GM TOP SCH ×2 (09:50→21:48)
[2020-12-11 09:57] LABS: BG BASE EXCESS 5.4 mmol/L (-2.0-2.0); BG CARBOXYHEMOGLOBIN 1.3 % (0.5-1.5); BG DEOXYHEMOGLOBIN 3.3 % (0.0-5.0); BG FRACTION INSPIRED OXYGEN 95; BG HCO3 ACT 30.7 mmol/L (22.0-26.0); BG METHEMOGLOBIN 0.3 % (0.0-1.5); BG OXYGEN SATURATION 96.6 % (92.0-98.5); BG OXYHEMOGLOBIN 95.1 % (94.0-97.0); BG PCO2 47.1 mmHg (35.0-45.0); BG PH 7.432 (7.350-7.450); BG PO2 84.9 mmHg (75.0-100.0); BG SAMPLE SITE LEFT RADIAL; BG TOTAL HEMOGLOBIN 14.4 g/dL (12.0-18.0); BG VENT MODE PRVC
[2020-12-11] MEDS: DOPAMINE 800MG PREMIX (DOUBLE) 250 ML IV SCH (11:37)
[2020-12-11] MEDS: NOREPINEPHRINE 32 MG in DEXT 5% WATER 218 ML IV PRN (11:37)
[2020-12-11] MEDS: MORPHINE SULFATE 2 MG/ML CPJ (NOT FOR IM USE) IV PRN ×2 (12:11→15:09)
[2020-12-11] MEDS: DEXT 10% WATER 1,000 ML IV SCH (12:50)
[2020-12-11] MEDS: MEROPENEM 1,000 MG in SODIUM CHLORIDE 0.9% 100 ML IV SCH (14:51)
[2020-12-11 15:57] LABS: INR 1.7; PROTHROMBIN TIME 17.1 sec (9.6-11.0)
[2020-12-11 16:04] LABS: BASOPHILS % 0.1 % (0.0-2.0); EOSINOPHILS % 1.1 % (0.0-5.0); HEMATOCRIT. 26.4 % (36.0-48.0); HEMOGLOBIN. 8.7 g/dL (12.0-16.0); LYMPHOCYTES % 7.8 % (20.0-50.0); MEAN CORPUSCULAR HEMOGLOBIN 30.5 pg (28.0-32.0); MEAN CORPUSCULAR VOLUME 92.2 fL (81.0-99.0); MEAN PLATELET VOLUME 10.9 fl (7.4-10.4); MONOCYTES % 10.7 % (2.0-8.0); NEUTROPHILS % 80.3 % (40.0-76.0); PLATELET 93 x1000/uL (130-400); RED BLOOD CELL COUNT 2.86 mill/uL (4.2-5.4); RED CELL DISTRIBUTION WIDTH 20.9 % (11.6-14.6)
[2020-12-11] MEDS ORDERED: VANCOMYCIN 750 MG PREMIX 150 ML IV NR (18:00)
[2020-12-11] MEDS: PHENYLEPHRINE 100 MG in DEXT 5% WATER 250 ML IV PRN (23:08)
[2020-12-12] VITALS (63 sets, daily range): BP systolic 62–153; BP diastolic 22–92
[2020-12-12] MEDS: NOREPINEPHRINE 32 MG in DEXT 5% WATER 218 ML IV PRN ×2 (02:07→10:21)
[2020-12-12] MEDS: BLOOD SUGAR DIAGNOSTIC STRIP TEST SCH ×3 (04:48→11:22)
[2020-12-12] MEDS: DOPAMINE 800MG PREMIX (DOUBLE) 250 ML IV SCH (04:49)
[2020-12-12] MEDS: DEXTROSE 50% WATER 50ML SYRINGE IV PRN (04:50)
[2020-12-12] MEDS: INSULIN LISPRO (HIGH DOSE) 100 UNITS/ML SUBCUT SCH ×2 (06:00→11:27)
[2020-12-12 06:09] LABS: BASOPHILS % 0.2 % (0.0-2.0); EOSINOPHILS % 1.4 % (0.0-5.0); LYMPHOCYTES % 7.6 % (20.0-50.0); MEAN CORPUSCULAR HEMOGLOBIN 30.7 pg (28.0-32.0); MEAN CORPUSCULAR VOLUME 95.6 fL (81.0-99.0); MEAN PLATELET VOLUME 10.9 fl (7.4-10.4); MONOCYTES % 6.9 % (2.0-8.0); NEUTROPHILS % 83.9 % (40.0-76.0); PLATELET 112 x1000/uL (130-400); RED BLOOD CELL COUNT 2.92 mill/uL (4.2-5.4); RED CELL DISTRIBUTION WIDTH 22.2 % (11.6-14.6)
[2020-12-12] MEDS: MIDODRINE HCL 5MG TABLET PO SCH (06:29)
[2020-12-12] MEDS ORDERED: VASOPRESSIN 20 UNIT in SODIUM CHLORIDE 0.9% 99 ML IV PRN (09:00)
[2020-12-12] MEDS: MENTHOL/LANOLIN/CALAMINE/ZN OX OINT 71GM TOP SCH (09:00)
[2020-12-12] MEDS: FLUDROCORTISONE ACETATE 0.1MG TABLET PO SCH (09:03)
[2020-12-12] MEDS: ATROPINE SULFATE 1MG/10ML SYR IV PRN (09:04)
[2020-12-12] MEDS: PANTOPRAZOLE SODIUM 40 MG/VIAL IV SCH (09:04)
[2020-12-12] MEDS: MORPHINE SULFATE 2 MG/ML CPJ (NOT FOR IM USE) IV PRN (09:04)
[2020-12-12] MEDS ORDERED: SODIUM BICARBONATE 8.4% 1 MEQ/ML 50ML SYR IV ONE (09:06)
[2020-12-12] MEDS ORDERED: DEXTROSE 50% WATER 50ML SYRINGE IV ONE (09:06)
[2020-12-12] MEDS ORDERED: ATROPINE SULFATE 1MG/10ML SYR ONE (09:06)
[2020-12-12] MEDS ORDERED: CALCIUM CHLORIDE 1GM/10ML SYR IV ONE (09:06)
[2020-12-12] MEDS ORDERED: EPINEPHRINE 0.1MG/ML (1:10,000) 10ML SYR ONE (09:06)
[2020-12-12 09:21] LABS: BG BASE EXCESS -22.7 mmol/L (-2.0-2.0); BG CARBOXYHEMOGLOBIN 0.3 % (0.5-1.5); BG HCO3 ACT 9.3 mmol/L (22.0-26.0); BG METHEMOGLOBIN 0.2 % (0.0-1.5); BG OXYGEN SATURATION 84.9 % (92.0-98.5); BG OXYHEMOGLOBIN 84.5 % (94.0-97.0); BG PCO2 49.3 mmHg (35.0-45.0); BG PH 6.895 (7.350-7.450); BG SAMPLE SITE LEFT RADIAL; BG TOTAL HEMOGLOBIN 9.5 g/dL (12.0-18.0); BG VENT MODE VENT- PRVC
[2020-12-12 10:23] LABS: BG CARBOXYHEMOGLOBIN 0.3 % (0.5-1.5); BG HCO3 ACT 12.4 mmol/L (22.0-26.0); BG METHEMOGLOBIN 0.6 % (0.0-1.5); BG OXYGEN SATURATION 83.9 % (92.0-98.5); BG OXYHEMOGLOBIN 83.1 % (94.0-97.0); BG PCO2 65.9 mmHg (35.0-45.0); BG PH 6.894 (7.350-7.450); BG PO2 67.2 mmHg (75.0-100.0); BG SAMPLE SITE LEFT RADIAL; BG TOTAL HEMOGLOBIN 9.3 g/dL (12.0-18.0); BG VENT MODE VENT- PRVC
[2020-12-12] MEDS ORDERED: SODIUM BICARBONATE 8.4% 1 MEQ/ML 50ML SYR IV NR (10:30)
[2020-12-12] MEDS: DEXT 10% WATER 1,000 ML IV SCH (10:43)
[2020-12-12] MEDS ORDERED: SODIUM BICARBONATE 100 MEQ in DEXTROSE 5% WATER 1,000 ML IV SCH (12:00)
[2020-12-12] MEDS ORDERED: MORPHINE SULFATE 2 MG/ML CPJ (NOT FOR IM USE) IV PRN (12:30)
[2020-12-12] MEDS ORDERED: LORAZEPAM 2MG/ML CPJ IV PRN (12:30)
[2020-12-12] MEDS ORDERED: DOXYCYCLINE 100 MG in DEXT 5% WATER 100 ML IV SCH (14:00)
== END 2020-12-12 15:30 | DRG 4 ==
LOC: ER 13:06 → CVICU 15:07 → EDBEDREQ 15:31 → EDBEDREQTM 15:31 → EDBEDREQSVC 15:32 → ENRESERV 16:53 → 5EST 11-02 20:50 → MICUSO 11-10 20:16 → 5EST 11-26 17:23 → MICUNO 12-05 14:55 → 5EST 12-07 07:30 → MICUNO 12-07 19:00
PROVIDERS: ADMIT Internal Medicine; ATTEND Internal Medicine
PROC: 5A1955Z Respiratory Ventilation, Greater than 96 Consecutive Hours (ICD-10-PCS; principal; 2020-10-07)
PROC: 5A12012 Performance of Cardiac Output, Single, Manual (ICD-10-PCS; 2020-10-07)
PROC: 0BH17EZ Insertion of Endotracheal Airway into Trachea, Via Natural or Artificial Opening (ICD-10-PCS; 2020-10-07)
PROC: 02H633Z Insertion of Infusion Device into Right Atrium, Percutaneous Approach (ICD-10-PCS; 2020-10-07)
PROC: B548ZZA Ultrasonography of Superior Vena Cava, Guidance (ICD-10-PCS; 2020-10-07)
PROC: 3E0A3GC Introduction of Other Therapeutic Substance into Bone Marrow, Percutaneous Approach (ICD-10-PCS; 2020-10-07)
PROC: B54CZZA Ultrasonography of Left Lower Extremity Veins, Guidance (ICD-10-PCS; 2020-10-07)
PROC: 06HY33Z Insertion of Infusion Device into Lower Vein, Percutaneous Approach (ICD-10-PCS; 2020-10-07)
PROC: 5A1D70Z Performance of Urinary Filtration, Intermittent, Less than 6 Hours Per Day (ICD-10-PCS; 2020-10-07)
PROC: 5A1D70Z Performance of Urinary Filtration, Intermittent, Less than 6 Hours Per Day (ICD-10-PCS; 2020-10-10)
PROC: 5A1D70Z Performance of Urinary Filtration, Intermittent, Less than 6 Hours Per Day (ICD-10-PCS; 2020-10-12)
PROC: 5A12012 Performance of Cardiac Output, Single, Manual (ICD-10-PCS; 2020-10-13)
PROC: 30233N1 Transfusion of Nonautologous Red Blood Cells into Peripheral Vein, Percutaneous Approach (ICD-10-PCS; 2020-10-15)
PROC: 5A1D70Z Performance of Urinary Filtration, Intermittent, Less than 6 Hours Per Day (ICD-10-PCS; 2020-10-15)
PROC: 02HV33Z Insertion of Infusion Device into Superior Vena Cava, Percutaneous Approach (ICD-10-PCS; 2020-10-16)
PROC: B548ZZA Ultrasonography of Superior Vena Cava, Guidance (ICD-10-PCS; 2020-10-16)
PROC: 5A1D70Z Performance of Urinary Filtration, Intermittent, Less than 6 Hours Per Day (ICD-10-PCS; 2020-10-17)
PROC: 4A10X4Z Monitoring of Central Nervous Electrical Activity, External Approach (ICD-10-PCS; 2020-10-19)
PROC: 5A1D70Z Performance of Urinary Filtration, Intermittent, Less than 6 Hours Per Day (ICD-10-PCS; 2020-10-20)
PROC: 5A1D70Z Performance of Urinary Filtration, Intermittent, Less than 6 Hours Per Day (ICD-10-PCS; 2020-10-21)
PROC: 5A1D70Z Performance of Urinary Filtration, Intermittent, Less than 6 Hours Per Day (ICD-10-PCS; 2020-10-22)
PROC: 0B110F4 Bypass Trachea to Cutaneous with Tracheostomy Device, Open Approach (ICD-10-PCS; 2020-10-23)
PROC: 0GBJ0ZZ Excision of Thyroid Gland Isthmus, Open Approach (ICD-10-PCS; 2020-10-23)
PROC: 5A1D70Z Performance of Urinary Filtration, Intermittent, Less than 6 Hours Per Day (ICD-10-PCS; 2020-10-24)
PROC: 5A1D70Z Performance of Urinary Filtration, Intermittent, Less than 6 Hours Per Day (ICD-10-PCS; 2020-10-26)
PROC: 5A1D70Z Performance of Urinary Filtration, Intermittent, Less than 6 Hours Per Day (ICD-10-PCS; 2020-10-31)
PROC: 5A1D70Z Performance of Urinary Filtration, Intermittent, Less than 6 Hours Per Day (ICD-10-PCS; 2020-11-05)
PROC: 5A1D70Z Performance of Urinary Filtration, Intermittent, Less than 6 Hours Per Day (ICD-10-PCS; 2020-11-08)
PROC: 5A1D70Z Performance of Urinary Filtration, Intermittent, Less than 6 Hours Per Day (ICD-10-PCS; 2020-11-09)
PROC: B54NZZA Ultrasonography of Left Upper Extremity Veins, Guidance (ICD-10-PCS; 2020-11-10)
PROC: 05HY33Z Insertion of Infusion Device into Upper Vein, Percutaneous Approach (ICD-10-PCS; 2020-11-10)
PROC: 0DBL0ZZ Excision of Transverse Colon, Open Approach (ICD-10-PCS; 2020-11-13)
PROC: 30233K1 Transfusion of Nonautologous Frozen Plasma into Peripheral Vein, Percutaneous Approach (ICD-10-PCS; 2020-11-13)
PROC: 5A1D70Z Performance of Urinary Filtration, Intermittent, Less than 6 Hours Per Day (ICD-10-PCS; 2020-11-13)
PROC: 0DBN0ZZ Excision of Sigmoid Colon, Open Approach (ICD-10-PCS; 2020-11-13)
PROC: 0D9600Z Drainage of Stomach with Drainage Device, Open Approach (ICD-10-PCS; 2020-11-15)
PROC: 5A1D70Z Performance of Urinary Filtration, Intermittent, Less than 6 Hours Per Day (ICD-10-PCS; 2020-11-16)
PROC: 5A1D70Z Performance of Urinary Filtration, Intermittent, Less than 6 Hours Per Day (ICD-10-PCS; 2020-11-18)
PROC: 5A1D70Z Performance of Urinary Filtration, Intermittent, Less than 6 Hours Per Day (ICD-10-PCS; 2020-11-20)
PROC: 5A1D70Z Performance of Urinary Filtration, Intermittent, Less than 6 Hours Per Day (ICD-10-PCS; 2020-11-23)
PROC: 5A1D70Z Performance of Urinary Filtration, Intermittent, Less than 6 Hours Per Day (ICD-10-PCS; 2020-11-25)
PROC: 5A1D70Z Performance of Urinary Filtration, Intermittent, Less than 6 Hours Per Day (ICD-10-PCS; 2020-11-27)
PROC: 5A1D70Z Performance of Urinary Filtration, Intermittent, Less than 6 Hours Per Day (ICD-10-PCS; 2020-11-30)
PROC: 5A1D70Z Performance of Urinary Filtration, Intermittent, Less than 6 Hours Per Day (ICD-10-PCS; 2020-12-02)
PROC: 5A1D70Z Performance of Urinary Filtration, Intermittent, Less than 6 Hours Per Day (ICD-10-PCS; 2020-12-04)
PROC: 5A12012 Performance of Cardiac Output, Single, Manual (ICD-10-PCS; 2020-12-05)
PROC: 5A1D70Z Performance of Urinary Filtration, Intermittent, Less than 6 Hours Per Day (ICD-10-PCS; 2020-12-07)
PROC: 5A1D70Z Performance of Urinary Filtration, Intermittent, Less than 6 Hours Per Day (ICD-10-PCS; 2020-12-10)
PROC: 5A1D70Z Performance of Urinary Filtration, Intermittent, Less than 6 Hours Per Day (ICD-10-PCS; 2020-12-11)
PROC: 5A12012 Performance of Cardiac Output, Single, Manual (ICD-10-PCS; 2020-12-12)
DX: A41.59 Other Gram-negative sepsis (principal); I46.9 Cardiac arrest, cause unspecified; K55.049 Acute infarction of large intestine, extent unspecified; K72.00 Acute and subacute hepatic failure without coma; N17.0 Acute kidney failure with tubular necrosis; J96.21 Acute and chronic respiratory failure with hypoxia; G92.8 Other toxic encephalopathy; E11.10 Type 2 diabetes mellitus with ketoacidosis without coma; E43 Unspecified severe protein-calorie malnutrition; J15.0 Pneumonia due to Klebsiella pneumoniae; J96.01 Acute respiratory failure with hypoxia; Z66 Do not resuscitate; J15.1 Pneumonia due to Pseudomonas; R65.21 Severe sepsis with septic shock; E72.20 Disorder of urea cycle metabolism, unspecified; D68.9 Coagulation defect, unspecified; D69.6 Thrombocytopenia, unspecified; G93.1 Anoxic brain damage, not elsewhere classified; E87.4 Mixed disorder of acid-base balance; E87.1 Hypo-osmolality and hyponatremia; E11.22 Type 2 diabetes mellitus with diabetic chronic kidney disease; E86.1 Hypovolemia; D64.9 Anemia, unspecified; E11.51 Type 2 diabetes mellitus with diabetic peripheral angiopathy without gangrene; E11.621 Type 2 diabetes mellitus with foot ulcer; E11.65 Type 2 diabetes mellitus with hyperglycemia; E87.5 Hyperkalemia; G40.909 Epilepsy, unspecified, not intractable, without status epilepticus; I13.0 Hypertensive heart and chronic kidney disease with heart failure and stage 1 through stage 4 chronic kidney disease, or unspecified chronic kidney disease; I45.9 Conduction disorder, unspecified; I50.9 Heart failure, unspecified; K21.9 Gastro-esophageal reflux disease without esophagitis; L97.509 Non-pressure chronic ulcer of other part of unspecified foot with unspecified severity; M32.9 Systemic lupus erythematosus, unspecified; E11.649 Type 2 diabetes mellitus with hypoglycemia without coma; E83.39 Other disorders of phosphorus metabolism; E83.42 Hypomagnesemia; E87.6 Hypokalemia; I07.1 Rheumatic tricuspid insufficiency; I27.21 Secondary pulmonary arterial hypertension; I47.2 Ventricular tachycardia; I48.0 Paroxysmal atrial fibrillation; I48.92 Unspecified atrial flutter; J45.909 Unspecified asthma, uncomplicated; J96.22 Acute and chronic respiratory failure with hypercapnia; K56.7 Ileus, unspecified; K74.60 Unspecified cirrhosis of liver; E78.5 Hyperlipidemia, unspecified; N18.9 Chronic kidney disease, unspecified; Z20.822 Contact with and (suspected) exposure to COVID-19; X58.XXXA Exposure to other specified factors, initial encounter; I44.1 Atrioventricular block, second degree; Z78.1 Physical restraint status; Z79.4 Long term (current) use of insulin; Z90.49 Acquired absence of other specified parts of digestive tract; Z91.11 Patient's noncompliance with dietary regimen; Z79.82 Long term (current) use of aspirin; Z79.899 Other long term (current) drug therapy; L89.819 Pressure ulcer of head, unspecified stage; S50.821A Blister (nonthermal) of right forearm, initial encounter; Y93.89 Activity, other specified; Y92.89 Other specified places as the place of occurrence of the external cause; Y99.8 Other external cause status; Z68.30 Body mass index [BMI] 30.0-30.9, adult; Z16.12 Extended spectrum beta lactamase (ESBL) resistance; E83.52 Hypercalcemia; R18.8 Other ascites
CPT/HCPCS: 36415; 36600; 49083; 71045; 74018; 74176; 74177; 74181; 76700; 76705; 76770; 76937; 78580; 80048; 80053; 80061; 80076; 80202; 80305; 81003; 82040; 82140; 82248; 82270; 82375; 82465; 82550; 82607; 82728; 82746; 82805; 82962; 83036; 83540; 83550; 83605; 83615; 83735; 83880; 84100; 84132; 84134; 84145; 84439; 84443; 84450; 84478; 84481; 84484; 85014; 85018; 85025; 85027; 85044; 85049; 85379; 85384; 86705; 86709; 86803; 86850; 86900; 86920; 86927; 87015; 87045; 87070; 87075; 87077; 87106; 87186; 87340; 87426; 87427; 87449; 87493; 88307; 89055; 92950; 93005; 93306; 93970; 94003; 94640; 95816; 99291; A6261; C1725; C1752; C9113; J0282; J0461; J0690; J0692; J0770; J0885; J1160; J1265; J1450; J1644; J1815; J1940; J2060; J2185; J2248; J2250; J2270; J2370; J2543; J2704; J2765; J3010; J3370; J3430; J3475; J3480; J3490; J7030; J7040; J7050; J7060; J7070; J7608; P9016; P9017; P9041; Q9963; Q9967; A4315